=== PATIENT | female | born 1955 | race Caucasian/White ===

== ENCOUNTER 2022-12-07 15:30 | Emergency (ER) | payer MEDICARE, MEDICAID, SELFPAY ==
--- NOTE | ~2022-12-07 | CT_ITS ---
EXAMINATION: CT abdomen pelvis w con DATE: 12/07/2022 18:16 INDICATION: abd pain, flank pain, UTI TECHNIQUE: Computed tomography (CT) of the abdomen and pelvis was performed with 100 mL Omnipaque-350 intravenous contrast. Automated exposure control and iterative reconstruction technique were employe d. The dose-length product was 666.07 mGy-cm. COMPARISON: None. FINDINGS: Lower thorax: Scattered air cysts in the lungs. 10 mm island of groundglass opacity in the right lowe r lobe. Irregular approximately 14 mm focus of groundglass opacity in the left lower lobe. Coronary a nd aortic calcifications. Liver: Normal. Biliary/Gallbladder: Gallbladder is normal. No bile duct dilation. Pancreas: No mass or duct dilation. Spleen: Normal. Adrenals:No mass. Kidneys: No mass, stone, or hydronephrosis. GI tract: Small hiatal hernia. Mild distal esophageal and gastric wall edema. No small or large bowel dilation. Normal appendix. Diverticulosis. Mild wall thickening and loss of the pericolonic fat plan e in a short segment of the sigmoid colon in the deep left pelvis, and a region of extensive divertic ulosis. Mesentery/Peritoneum: No ascites, mass, or free air. Retroperitoneum: No mass. Atherosclerotic abdominal aortic and/or arterial calcifications. Pelvis: Partially filled urinary bladder. Surgically absent uterus.. Soft Tissues: Right lower quadrant subcutaneous injection site. Uncomplicated fat-containing small um bilical and bilateral renal hernias. Bones: No acute osseous finding. IMPRESSION: 1. Multiple subsolid pulmonary nodules, likely infectious or inflammatory, recommend CT at 3-6 months . 2. Mild esophagitis/gastritis. 3. Mild wall thickening and loss of pericolonic fat and a short segment of the sigmoid colon in the d eep left pelvis, in an area of extensive diverticulosis, which may represent mild/early diverticuliti s in the appropriate clinical context. Reviewed, dictated and finalized at location K. IMPRESSION: 1. Multiple subsolid pulmonary nodules, likely infectious or inflammatory, miriam mmend CT at 3-6 months. 2. Mild esophagitis/gastritis. 3. Mild wall thickening and loss of pericolonic fat and a short segment of the sigmoid colon in the deep left pelvis, in an area of extensive diverticulosis, which may represent mild/early diverticulitis in the appropriate clinical olu xt.
[2022-12-07 15:49] VITALS: BP 130/91; PULSE 95; RESP 14; TEMP 36.4; O2SAT 99
[2022-12-07 16:13] LABS: Appearance Urine Cloudy (Clear); Bacteria Urine 4+ /hpf; Bilirubin Urine Negative (Negative); Blood Urine Negative (Negative); Color Urine Yellow (Yellow); Glucose Urine UA Negative (Negative); Ketones Urine Negative (Negative); Leukocyte Esterase Ur 1+ LEU/UL (Negative); Nitrate Urine Positive (Negative); Protein Urine Negative (Negative); RBC Urine 0-2 /hpf (0-2); Specific Grav Ur 1.017 (1.001-1.035); Squamous Epithelial Cell Urine Moderate /hpf (Few); Urobilinogen Urine 0.2 mg/dL (<2.0); pH Urine 5.5 (5.0-9.0)
[2022-12-07 16:18] LABS: Add Urine Microscopic? YES
[2022-12-07 16:27] LABS: Basophils Absolute Auto 0.1 K/mm3 (0.0-0.1); Basophils Percent Auto 0.5 % (0.2-1.2); Eosinophils Absolute Auto 0.3 K/mm3 (0-0.3); Eosinophils Percent Auto 2.3 % (0-4.4); Hematocrit 48.9 % (37.0-47.0); Hemoglobin 16.6 g/dL (12.0-15.0); Immature Granulocyte Absolute 0.05 K/mm3 (0.00-0.031); Immature Granulocyte Percent A 0.4 % (0-0.5); Lymphocytes Absolute Auto 3.94 K/mm3 (0.9-3.2); Lymphocytes Percent Auto 30.1 % (18.3-44.2); Mean Corpuscular HGB Conc 33.9 g/dl (32-36); Mean Corpuscular Hemoglobin 31.3 pg (26-34); Mean Corpuscular Volume 92.1 fl (80-100); Monocytes Absolute Auto 0.8 K/mm3 (0.1-0.6); Neutrophils Percent Auto 60.7 % (45.5-73.1); Platelet Count Result 324 k/mm3 (150-375); Red Blood Count 5.31 M/mm3 (4.2-5.4); Red Cell Distribution Width 13.1 % (11.5-14.5); White Blood Count 13.1 K/mm3 (4.5-10.0)
[2022-12-07 16:37] LABS: Anion Gap 11 mmol/L (8-16); Blood Urea Nitrogen 20 mg/dL (7-17); Calcium 10.3 mg/dL (8.4-10.2); Carbon Dioxide 22 mmol/L (22-30); Chloride 100 mmol/L (98-107); Estimated CRCL calculation 45 ml/min; Estimated Glomerular Filt Rate 45; Glucose 110 mg/dL (65-110); Potassium 4.8 mmol/L (3.4-5.0); Sodium 133 mmol/L (137-145)
--- NOTE | 2022-12-07 17:21 | ED.FEMALEGU ---
HPI - Female Genitourinary General Chief complaint: Urogenital-Female Stated complaint: UTI Time Seen by Provider: 12/07/22 16:00 Source: patient Mode of arrival: ambulatory Limitations: no limitations History of Present Illness HPI Narrative: This is a 67 year old female that presents to the ER for feeling generally unwell for about a week. Reports urinary frequency, fatigue, left sided flank pain and foul smelling urine. Reports some mild abdominal cramping. Denies fever, vomiting or hematuria. Related Data Allergies Allergy/AdvReac Type Severity Reaction Status Date / Time No Known Allergies Allergy Verified 12/07/22 19:06 Review of Systems Review of Systems: CONSTITUTIONAL: Denies fever GASTROINTESTINAL: Reports abdominal pain. Denies nausea, vomiting or diarrhea GENITOURINARY: Reports hematuria. Denies dysuria All systems reviewed & are unremarkable except as noted in HPI and below PMFSH Past Medical History Medical History (Updated 12/07/22 @ 19:05 by Belkis Vaughn PA-C) History of diabetes mellitus History of hyperlipidemia History of hypertension Family History Family History (Updated 04/23/16 @ 23:19 by DOCTOR UNKNOWN) Sibling Family history of diabetes mellitus in first degree relative Mother Family history of heart disease in male family member before age 55 Other Diabetes mellitus Social History Social History Smoking status: Heavy tobacco smoker Alcohol intake: current Exam Narrative: GENERAL: Well-appearing, well-nourished, and in no acute distress. HEAD: Normocephalic, atraumatic. EYES: EOMI. CHEST: Clear to auscultation. No respiratory distress. No wheezes rales or rhonchi HEART: Regular rate and rhythm. No murmur heard. Normal peripheral pulses. ABDOMEN: Soft, nontender, nondistended, normal active bowel sounds. Left sided CVA tenderness EXTREMITIES: Normal range of motion. No edema. SKIN: Warm, dry, no rash. NEURO: No focal deficits. Alert and oriented x3. PSYCH: Normal mood and affect Course Course Emergency Course: Patient updated on work-up and agrees with plan of care Vital Signs Vital signs: Vital Signs Temperature 97.5 F L 12/07/22 15:49 Pulse Rate 95 12/07/22 15:49 Respiratory Rate 14 12/07/22 15:49 Blood Pressure 130/91 H 12/07/22 15:49 Pulse Oximetry 99 12/07/22 15:49 Oxygen Delivery Room Air 12/07/22 15:49 Temperature 97.5 F L 12/07/22 15:49 Pulse Rate 95 12/07/22 15:49 Respiratory Rate 14 12/07/22 15:49 Blood Pressure 130/91 H 12/07/22 15:49 Pulse Oximetry 99 12/07/22 15:49 Oxygen Delivery Room Air 12/07/22 15:49 MDM - Female Genitourinary MDM Narrative Medical decision making narrative: Patient presents to the emergency department for feeling generally unwell, urinary frequency, and flank pain. She is afebrile and nontoxic-appearing. Her vitals are stable. CBC with mild leukocytosis to 13.1. Also shows some hemoconcentration. Metabolic panel with creatinine of 1.2 and GFR 45. No previous labs for comparison. Patient was hydrated with a liter of IV fluids in the ED. UA is consistent with infection. CT scan of the abdomen and pelvis was obtained to rule out any kidney stones complicating. Shows pulmonary nodules, esophagitis, and possible mild/early diverticulitis. Patient's symptoms are more consistent with a UTI. Will be started on antibiotics to treat for this. Patient was updated on work-up and agrees with plan of care. She is to follow-up with her primary care provider. She was given warnings to return to the ER Differential Diagnosis Differential diagnosis: Likely urinary tract infection and other (kidney stone) Lab Data Attestation: I reviewed the patient's lab results. 12/07/22 16:19 12/07/22 16:19 Labs: Lab Results 12/07/22 12/07/22 12/07/22 Range/Units 16:00 16:19 16:19 WBC 13.1 H (4.5-10.0) K/mm3 RBC 5.31 (4.2-5.4) M/mm3 Hgb 16.6 H
[2022-12-07] MEDS: SODIUM CHLORIDE 0.9% IV 1,000 ML 999 ML IV CONT (18:44)
== END 2022-12-07 19:41 | disposition home or self-care (01) ==
PROVIDERS: Emergency Medicine; Emergency Provider Physician Assistant; PCP Internal Medicine
DX: N39.0 Urinary tract infection, site not specified (principal); R91.8 Other nonspecific abnormal finding of lung field; E11.9 Type 2 diabetes mellitus without complications; E78.5 Hyperlipidemia, unspecified; I10 Essential (primary) hypertension; F17.200 Nicotine dependence, unspecified, uncomplicated; K20.90 Esophagitis, unspecified without bleeding; K29.70 Gastritis, unspecified, without bleeding; R93.3 Abnormal findings on diagnostic imaging of other parts of digestive tract
CPT/HCPCS: 36415; 74177; 80048; 81001; 85025; 87077; 87086; 87186; 96361; 96365; 99284; J0696; J7030; Q9967

== ENCOUNTER 2023-10-25 09:10 | Outpatient (CLI) | payer OTHER, SELFPAY ==
--- NOTE | ~2023-10-25 | PE_ITS ---
EXAMINATION: PET skull to mid thigh DATE: 10/25/2023 11:47 INDICATION: Lung nodule. TECHNIQUE: Blood glucose level was 123 mg/dL. 9.254 mCi of 18-fluorodeoxyglucose (18-FDG) was adminis tered i.v. Low dose computed tomography (CT) images were acquired from the base of the brain to the p roximal thighs for attenuation correction and anatomic localization. Automated exposure control was e mployed. Dose-length product (DLP) was 714 mGy-cm. Positron emission tomography (PET) images were acq uired in the same distribution. COMPARISON: CT abdomen and pelvis 12/07/2022 FINDINGS: Head/neck: There are no pathologically enlarged lymph nodes. Chest: There is mild emphysema. There are a few scattered groundglass opacities in the lungs without increased activity. There is mild atelectasis in left upper lobe. There are a few scattered nodules i n the lungs measuring up to 7 mm in left upper lobe without increased activity. No pleural effusion. The heart size is normal. There are coronary artery calcifications. No pericardial effusion. Abdomen/pelvis/proximal thighs: The liver, gallbladder, pancreas, adrenal glands, and kidneys are nor mal. There is no urolithiasis. There is diverticulosis of the colon without evidence of diverticuliti s. There are no dilated loops of bowel. The appendix is normal. There are no pathologically enlarged lymph nodes. There is no free intraperitoneal fluid. There is calcified atherosclerosis of the aorta and many of the other arteries. There is no osseous malignancy. IMPRESSION: 1. Pulmonary nodules measuring up to 7 mm without increased activity, probably benign. Noncontrast lo w-dose chest CT is recommended in 6 months. Reviewed, dictated and finalized at location A. [employer] IMPRESSION: 1. Pulmonary nodules measuring up to 7 mm without increased activity, probably benign. Noncontrast low-dose chest CT is recommended in 6 months.
[2023-10-25 09:46] LABS: Glucose Point of Care 123 mg/dl (65-105)
== END 2023-10-25 09:11 | disposition home or self-care (01) ==
LOC: ANHIMG 09:12
PROVIDERS: PCP Internal Medicine; Visit Provider Internal Medicine
DX: R91.1 Solitary pulmonary nodule (principal); R91.8 Other nonspecific abnormal finding of lung field
CPT/HCPCS: 78815; A9552

== ENCOUNTER 2024-12-04 10:23 | Outpatient (CLI) | payer OTHER, SELFPAY ==
--- NOTE | ~2024-12-04 | PE_ITS ---
EXAMINATION: PET skull to mid thigh DATE: 12/04/2024 12:50 INDICATION: Solitary pulmonary nodule. TECHNIQUE: Blood glucose level was 97 mg/dL. 10.341 mCi of 18-fluorodeoxyglucose (18-FDG) was adminis tered i.v. Low dose computed tomography (CT) images were acquired from the base of the brain to the p roximal thighs for attenuation correction and anatomic localization. Automated exposure control was e mployed. Dose-length product (DLP) was 703 mGy-cm. Positron emission tomography (PET) images were acq uired in the same distribution. COMPARISON: PET/CT 10/25/2023 FINDINGS: Head/neck: There are no pathologically enlarged lymph nodes. Chest: There is mild emphysema. There are a few scattered groundglass opacities in the lungs without increased activity. There is a new 6 mm nodule in right upper lobe with maximum SUV of 1.7. There is a 7 mm nodule in left upper lobe without increased activity without change. There is 11 mm nodule in left lower lobe with increased in size from 7 mm with maximum SUV of 5.6. No pleural effusion. The he art size is normal. There are coronary artery calcifications. No pericardial effusion. There is a sma ll sliding hiatal hernia. Abdomen/pelvis/proximal thighs: The liver, gallbladder, spleen, pancreas, adrenal glands, and kidneys are normal. There is diverticulosis of the colon without evidence of diverticulitis. There are no di lated loops of bowel. The appendix is normal. There are no pathologically enlarged lymph nodes. There is no free intraperitoneal fluid. There is no osseous malignancy. IMPRESSION: 1. Worsened 11 mm left lower lobe pulmonary nodule with increased activity suspicious for primary bro nchogenic carcinoma. CT-guided biopsy is recommended. Reviewed, dictated and finalized at location B. IMPRESSION: 1. Worsened 11 mm left lower lobe pulmonary nodule with increased activity susp icious for primary bronchogenic carcinoma. CT-guided biopsy is recommended.
[2024-12-04 10:52] LABS: Glucose Point of Care 97 mg/dl (65-105)
--- OUTSIDE RECORDS SUMMARY | 2024-12-04 11:47 | XMS_ITS | CONTINUITY OF CARE DOCUMENT ---
Author Name josue salas Address Unknown Organization [facility] Address [address] [place] [address] Phone [phone] Care Team Providers Care Remedial Reading Teacher Name Role Phone josue salas Unavailable Unavailable INSURANCE PROVIDERS Payer name Policy type / Coverage type [place] red green party ID [place] [facility] Commercial insurance [employer] [id number]
--- OUTSIDE RECORDS SUMMARY | 2024-12-04 11:47 | XMS_ITS | Referral Summary ---
Author Organization [facility] Address [address] [place] [address] Care Team Providers Care Therapy Teacher Name Role Phone Dorian Tello MD Primary Care Provider Allergies Active Allergy Reactions Criticality Noted Date Comments Unclassified Drug Nausea & Vomiting Low 08/06/2022 Unknown antibiotic with UTI, thinks its Cipro or Keflex Medications blood sugar diagnostic (ONETOUCH ULTRA BLUE TEST STRIP [facility]) OneTouch Ultra Blue Test Strip TEST BLOOD SUGAR ONCE DAILY DX E11.9 Active blood glucose diagnostic (True Metrix Glucose Test Strip) strip True Metrix Glucose Test Strip Active blood glucose control, normal solution truetest blood glucose meter use to test blood sugar daily E11.9 Active lancets 33 gauge misc TRUEplus Lancets 33 gauge TEST USING ONE LANCET EVERY DAY Active pantoprazole DR (PROTONIX) 40 mg EC tabletIndicatio ns:Treatment of Non-Bleeding Gastric Disorder Take 40 mg by mouth nightly Active losartan (COZAAR) 25 mg tabletIndicatio ns:hypertension Take 25 mg by mouth nightly Active atorvastatin (LIPITOR) 20 mg tabletIndicatio ns:hyperlipidem ia Take 20 mg by mouth nightly Active dulaglutide (Trulicity) 0.75 mg/0.5 mL pen injectorIndicat ions:type 2 diabetes mellitus,Tuesday Inject 0.75 mg under the skin once a week Active eszopiclone (LUNESTA) 3 mg tabletIndicatio ns:Insomnia Take 3 mg by mouth nightly Active naproxen sodium 220 mg capsuleIndicati ons:Pain Take 220 mg by mouth 2 (two) times a day Active metFORMIN (GLUCOPHAGE) 500 mg tabletIndicatio ns:type 2 diabetes mellitus Take 500 mg by mouth nightly Active oxyCODONE (ROXICODONE) 5 mg immediate release tabletIndicatio ns:Pain Take 1 tablet (5 mg total) by mouth every 4 (four) hours as needed for pain 40 tablet 08/24/2022 Active docusate sodium (COLACE) 100 mg capsuleIndicati ons:constipatio n Take 1 capsule (100 mg total) by mouth 2 (two) times a day For constipation. Hold if having loose stools or diarrhea. 20 capsule 08/24/2022 Active Active Problems Problem Noted Date Diagnosed Date Tear of right rotator cuff 07/19/2022 Overview (07/19/2022): Added automatically from request for surgery [id number] Social History Tobacco Use Types Packs/Day Years Used Date Smoking Tobacco: Former Cigarettes 1 20 1 - 07/05/2022 Tobacco Cessation:Counseling Given: Not Answered AUDIT-C Answer Date Recorded Frequency of Alcohol Consumption Not on file 08/06/2022 Q2: How many drinks containi ng alcohol do you have on a typical day when you are drinking? Patient does not drink Frequency of Binge Drinking Not on file 07/27 Comments No Sex and Gender Information Value Date Recorded Sex Assigned at Not on file Legal Sex Female 1:06 AM NEWS CAMERAMAN Gender Identity Not on file Sexual Orientation Not on file Last Filed Vital Signs Vital Sign Reading Time Taken Comments Blood Pressure 143/70 08/24/2022 10:00 AM NEWS CAMERAMAN Pulse 81 08/24/2022 10:05 AM NEWS CAMERAMAN Temperature 36.2 C (97.2 F) 08/24/2022 10:05 AM NEWS CAMERAMAN Respiratory Rate 22 08/24/2022 10:0 5 AM NEWS CAMERAMAN Oxygen Saturation 96% 08/24/2022 10: 05 AM NEWS CAMERAMAN Inhaled Oxygen Concentration - - Weight 85.1 kg (187 lb 11.2 oz) 08/24/2022 5:54 AM NEWS CAMERAMAN Height 170.2 cm (5' 7 ) 08/24/2022 5:54 AM NEWS CAMERAMAN Body Mass Index 29.4 08/24/2022 5:54 AM NEWS CAMERAMAN Plan of Treatment Not on file Medical Devices Implanted Type Area Electrode Cleaner Device Identifier Shelf Expiration Date Model / Serial / Lot Titanium Left: Breast Description:Left breast steffen nium implant [employer] Set Implant Ar[employer]rex Fibertak Biceps Sterile Latex Free [id number] - [id number] Implanted:Qty: 1 on 08/24/2022 by Sony Banks MD at [facility] Right: Shoulder [employer] 03/25/2027 [id number]-[id number] / / [id number] [employer] Swivelock C 4.75mm 19.1mm Closed Eyelet Vent Glade Suture [id number] - [id number] Implanted:Qty: 1 on 08/24/2022 by Sony Banks MD at [facility] [place] Right: Shoulder [employer] 06/25/2026 [id number] / / [id number] Insurance [facility] MEDICARE IDPA Care Teams Therapy Teacher Relationship Specialty Start Date End Date Dorian Tello MD [address] [place] [address] PCP - General Internal Medicine 07/13/22
--- OUTSIDE RECORDS SUMMARY | 2024-12-04 11:47 | XMS_ITS | Clinical Summary ---
Author Organization [facility] Address [address] [place] [address] Care Team Providers Care Safety Supervisor Name Role Phone Unavailable Primary Care Provider Unavailabl e Source Comments [facility],non-owned Affiliates and Associated Physician Practices is amultiple site organization consisting of ambulatory clinics and hospital sitesin [place], [place], [place] and [place]. This disclosure is being madepursuant to the Care Everywhere program and may not contain all information available regarding this patient. Last updated 18.[facility] Allergies No known active allergies Medications * Be aware that medications may not be up to date on this document. Alwaysverify current medications with the patient. Medication Sig Dispensed Refills Start Date End Date Status atorvastatin (LIPITOR) 20 MG tablet atorvastatin 20 mg tablet TAKE ONE TABLET BY MOUTH EVERY DAY Active eszopiclone (LUNESTA) 3 MG tablet eszopiclone 3 mg tablet TAKE ONE TABLET BY MOUTH NIGHTLY AT BEDTIME DX G47.00 Active HYDROcodone-acetami nophen (NORCO) 7.5-325 MG tablet hydrocodone 7.5 mg-acetaminophen 325 mg tablet one tablet three times a day for chronic pain DX: G89.4 Active losartan (COZAAR) 25 MG tablet On hold during hep c treatment Active metFORMIN ER 24hr (GLUCOPHAGE XR) 500 MG tablet 2 times daily 10/20/2020 Active pantoprazole EC (PROTONIX) 40 MG tablet pantoprazole 40 mg tablet,delayed release TAKE ONE TABLET BY MOUTH EVERY DAY Active Active Problems Problem Noted Date Diagnosed Date Enthesopathy of hip region 10/27/2020 Gastroesophageal reflux disease 10/27/2020 Iron deficiency anemia 10/27/2020 Pure hypercholesterolemia 10/27/2020 Restless legs 10/27/2020 Right lower quadrant pain 10/27/2020 Chronic hepatitis C without hepatic coma 021 Overview (12/21/2020): Hepatitis B core antibody non reactive. Genotype 1a 12/15/20 Fibroscan CAP 355, LSM 11.5 kPa Essential hypertension 02/12/2019 Chronic pain disorder 08/14/2018 Type 2 diabetes mellitus without complication Vitamin D deficiency 01/03/2017 Family History Medical History Relation Name Comments Diabetes - Type 2 Brother High Cholesterol Brother Hypertension Brother CVA Father Cancer - Colon Father High Cholesterol Father Hypertension Father Diabetes - Type 2 Mother High Cholesterol Mother Hypertension Mother Relation Name Status Comments Brother Father Mother Social History Tobacco Use Types Packs/Day Years Used Date Smoking Tobacco: Every Day Cigarettes Smokeless Tobacco: Never Alcohol Use Standard Drinks/Week Comments Not Currently 0 (1 standard drink = 0.6 oz pur e alcohol) Very rare- nothing in years Sex and Gender Information Value Date Recorded Sex Assigned at Not on file Gender Identity Not on file Sexual Orientation Not on file Last Filed Vital Signs Vital Sign Reading Time Taken Comments Blood Pressure 134/77 06/09/2021 1:27 PM CDT Pulse 83 06/09/2021 1:27 PM CDT Temperature 36.6 C (97.9 F) 06/09/2021 1:27 PM CDT Respiratory Rate 20 06/09/2021 1:27 PM CDT Oxygen Saturation 100% 06/09/2021 1:27 PM CDT Inhaled Oxygen Concentration - - Weight 88.4 kg (194 lb 12.8 oz) 06/09/2021 1:27 PM CDT Height 170.2 cm (5' 7 ) 12/15/2020 12:4 4 PM CDT Body Mass Index 30.51 12/15/2020 12:44 PM CDT Plan of Treatment Health Maintenance Due Date Last Done Comments BONE DENSITY TESTING 1955 COLOGUARD (AGES 45-75) - COLON CA SCREENING 1955 COLON MONITORING 1955 COLONOSCOPY - COLON CA SCREENING 1955 CT COLONOGRAPHY - COLON CA SCREENING 1955 Colorectal Cancer Screening 1955 FIT - COLON CA SCREENING 1955 FLEX SIG - COLON CA SCREENING 1955 MAMMOGRAM 1955 MEDICARE AWV 12 MONTHS 1955 DTAP/TDAP/TD VACCINES (1 - Tdap) 1974 PNEUMOCOCCAL VACCINE 50+ (1 of 2 - PCV) 1974 ZOSTER VACCINE (1 of 2) 2005 HEPATITIS B VACCINE (1 of 3 - Risk 3-dose series) 2015 Respiratory Syncytial Virus (RSV) Vaccine Pt: or over 60 yrs (1 - Risk 60-74 years 1-dose series) 2015 DIABETES RETINOPATHY SCREENING 10/27/2020 DIABETES-FOOT EXAM WITH MONOFILAMENT 10/27/2020 DIABETES-HGB A1C 10/27/2020 DIABETES-SERUM CREATININE 01/14/2022 01/14/2021, 09/2020 COVID-19 VACCINE ( - season) 2024 INFLUENZA VACCINE (#1) 2024 9, 06/30/2015, 07/09/2013 DEPRESSION SCREENING 09/26/2024 DIABETES - URINE PROTEIN SCREENING 09/26/2024 HEPATITIS C SCREENING Completed 06/09/2021 , 02/20/2021, 01/26/2021, Additional history exists HIB VACCINE Aged Out No longer eligi ble based on patient's age to complete this topic HPV VACCINE Aged Out No longer eligi ble based on patient's age to complete this topic MENINGOCOCCAL (Group B) VACCINE Aged Out No longer eligible based on patient's age to complete this topic MENINGOCOCCAL VACCINE Aged Out No robina morris eligible based on patient's age to complete this topic Goals Goal Patient Goal Type Associated Problems Recent Progress Patient-Stated? Author Medication Management General On track( 021 1:41 PM CDT) No Guadalupe Montes, RN Note: Expected end date: ongoing Interventions: Take all medications as prescribed Procedures Procedure Name Priority Date/Time Associated Diagnosis Comments COMP MET PANEL (EXTERNAL RESULT ENTRY) Routine 01/14/2021 HEPATITIS C RNA QUANTITATIVE Routine 10/27/2020 1:40 PM PATIENT REGISTRATION CLERK Chronic hepatitis C without hepatic coma (HCC) from Last 3 Months or Most Recently Relevant to Health Maintenance Results * (ABNORMAL) COMP MET PANEL (EXTERNAL RESULT ENTRY) (01/14/2021) Pathologist [facility] Glucose (EXTERNAL) 138(A) 70 - 99 mg/dL Sodium (EXTERNAL RESULT) 140 137 - 145 mmol/L Potassium (EXTERNAL RESULT) 4.2 3.5 - 5.1 mmol/L Chloride (EXTERNAL RESULT) 103 98 - 107 mmol/L CO2 (EXTERNAL) 26 22 - 30 mmol/L Calcium (EXTERNAL RESULT) 10.5(A) 8.4 - 10.2 mg/dL Anion Gap (EXTERNAL RESULT) 15.2 14 - 22 mmol/L BUN (EXTERNAL RESULT) 13 8 - 19 mg/dL Creatinine (EXTERNAL RESULT) 0.91 0.66 - 1.25 mg/dl Alkaline Phosphatase (EXTERNAL RESULT) 62 38 - 126 U/L ALT (EXTERNAL RESULT) 43(A) 0 - 35 U/L AST (EXTERNAL RESULT) 30 15 - 37 U/L Protein Total (EXTERNAL RESULT) 7.6 6.3 - 8.2 gm/dL Albumin (EXTERNAL RESULT) 4.7(A) 3 - 4.4 gm/dL Bilirubin Total (EXTERNAL RESULT) 0.60 0.20 - 1.30 mg/dL eGFR MDRD (EXTERNAL RESULT) eGFR (EXTERNAL) Blood BLOOD SPECIMEN / Unknown 01/14/2021 Historical Provider LAB - CHEMISTRY O RDERABLES * (ABNORMAL) HEPATITIS C RNA QUANTITATIVE (10/27/2020 1:40 PM PATIENT REGISTRATION CLERK) [facility] Hepatitis C Virus Quant by PCR, Blood 3,531,631 (H) Not detected IU/mL 10/30/2020 11:09 AM PATIENT REGISTRATION CLERK [facility] Hepatitis C RNA PCR, Interp Detected( A) Not Detected 10/30/2020 11:09 AM [facility] Blood BLOOD SPECIMEN / Unknown Lab Venipuncture / Unknown 10/27/2020 1:40 PM PATIENT REGISTRATION CLERK 10/27/2020 3:32 PM PATIENT REGISTRATION CLERK Narrative [facility] - 10/30/2020 11:09 AM PATIENT REGISTRATION CLERK The Hepatitis C viral (HCV) RNA analysis utilized a serum sample, real-time reverse turfgrass management professor PCR, and is reported as Not Detected, Detected (<12 IU/mL), Quantity (IU/mL) or >100,000,000 IU/mL. The limit of quantitation of the assay is 12 IU/mL (100% of samples with this HCV RNA level were detected). The linear range is from 12 IU/mL to 100,000,000 IU/mL. Values less than 12 IU/mL are reported as Detected (<12 IU/mL). Values greater than 100,000,000 IU/mL are reported as > 100,000,000 IU/mL. The detection/quantitation of HCV RNA in serum is based on the isolation of HCV RNA with reverse turfgrass management professor of genomic HCV RNA followed by real-time PCR in the presence of an unrelated RNA internal control. The internal control ensures that RNA is isolated, and that no general significant inhibitors of the RT-PCR process are present. The analysis was performed using a U.S. FDA approved test methodology ([employer] Real Time HCV). Yoli Olvera TOBACCO SCRAP SIFTER-VISUAL TRAINING AIDE LAB - CHEMIS TRY ORDERABLES [facility] [address] [place] [address], [facility] [phone] from Last 3 Months or Most Recently Relevant to Health Maintenance
--- OUTSIDE RECORDS SUMMARY | 2024-12-04 11:47 | XMS_ITS | Patient Health Summary ---
Author Organization [facility] Address [address] [place] [address] Care Team Providers Care Cloth Hauler Name Role Phone Unavailable Primary Care Provider Unavailabl e Note from [facility],non-owned Affiliates and Associated Physician Practices is amultiple site organization consisting of ambulatory clinics and hospital sitesin [place], [place], [place] and [place]. This disclosure is being madepursuant to the Care Everywhere program and may not contain all information available regarding this patient. Last updated 18.[facility] Allergies No known active allergies Medications * Be aware that medications may not be up to date on this document. Alwaysverify current medications with the patient. * atorvastatin (LIPITOR) 20 MG tablet atorvastatin 20 mg tablet TAKE ONE TABLET BY MOUTH EVERY DAY * eszopiclone (LUNESTA) 3 MG tablet eszopiclone 3 mg tablet TAKE ONE TABLET BY MOUTH NIGHTLY AT BEDTIME DX G47.00 * HYDROcodone-acetaminophen (NORCO) 7.5-325 MG tablet hydrocodone 7.5 mg-acetaminophen 325 mg tablet one tablet three times a day for chronic pain DX: G89.4 * losartan (COZAAR) 25 MG tablet On hold during hep c treatment * metFORMIN ER 24hr (GLUCOPHAGE XR) 500 MG tablet(Started 10/20/2020) 2 times daily * pantoprazole EC (PROTONIX) 40 MG tablet pantoprazole 40 mg tablet,delayed release TAKE ONE TABLET BY MOUTH EVERY DAY Active Problems Problem Noted Date Diagnosed Date Enthesopathy of hip region 10/27/2020 Gastroesophageal reflux disease 10/27/2020 Iron deficiency anemia 10/27/2020 Pure hypercholesterolemia 10/27/2020 Restless legs 10/27/2020 Right lower quadrant pain 10/27/2020 Chronic hepatitis C without hepatic coma 021 Essential hypertension 02/12/2019 Chronic pain disorder 08/14/2018 Type 2 diabetes mellitus without complication Vitamin D deficiency 01/03/2017 Social History Tobacco Use Types Packs/Day Years [...] Mass Index 30.51 12/15/2020 12:44 PM CDT Procedures * US ABDOMEN LIMITED(Performed 01/26/2021) Performed for Chronic hepatitis C without hepatic coma (HCC) * HCV RNA PCR QNT (EXTERNAL RESULT ENTRY)(Performed 01/14/2021) * COMP MET PANEL (EXTERNAL RESULT ENTRY)(Performed 01/14/2021) * CBC W DIFF (EXTERNAL RESULT ENTRY)(Performed 01/14/2021) * HI LIVER ELASTOGRAPHY(Performed 12/15/2020) Performed for Chronic hepatitis C without hepatic coma (HCC) * HEPATITIS B SURFACE ANTIBODY(Performed 10/27/2020) Performed for Chronic hepatitis C without hepatic coma (HCC) * HEPATITIS C RNA QUANTITATIVE(Performed 10/27/2020) Performed for Chronic hepatitis C without hepatic coma (HCC) * PT-INR [facility](Performed 10/27/2020) Performed for Chronic hepatitis C without hepatic coma (HCC) * COMPREHENSIVE METABOLIC PANEL(Performed 10/27/2020) Performed for Chronic hepatitis C without hepatic coma (HCC) * CBC W AUTO DIFFERENTIAL(Performed 10/27/2020) Performed for Chronic hepatitis C without hepatic coma (HCC) * DERMATOPATHOLOGY(Performed 10/10/2014) * DERMATOPATHOLOGY(Performed 09/05/2014) Results * US ABDOMEN LIMITED (01/26/2021 1:29 PM CDT) Anatomical Region Laterality Modality Abdomen Ultrasound 01/26/2021 1:25 PM CDT Impressions 01/26/2021 1:27 PM CDT IMPRESSION: 1.Increased echogenicity of the liver with a coarse echotexture, representing steatosis and chronic hepatocellular disease. No focal liver lesions. 2.Gallbladder sludge with adenomyomatosis. This report was electronically signed by AICHA TELLO on 01/26/2021 1:27 PM . Narrative 01/26/2021 1:27 PM CDT EXAM: Limited abdominal ultrasound HISTORY: B18.2: Chronic hepatitis C without hepatic coma COMPARISON: No comparison images are available in the PACS system at the time of this dictation. FINDINGS: There is increased echogenicity of the liver appears coarse in echotexture. No focal liver masses. No discrete hepatic mass or intrahepatic biliary dilatation is seen. Color Doppler evaluation demonstrates patency of the hepatic and portal veins. Gallbladder sludge is present. Numerous foci of adenomyomatosis. The gallbladder wall measures 3 mm. The common bile duct measures 3.2 mm. The right kidney measures 11.3 cm. Limited views of the right kidney show no hydronephrosis, nephrolithiasis, or solid renal mass. The visible pancreas is normal in echogenicity. The spleen measures 10.4 cm. No ascites is present. Procedure Note Aicha Tello MD - 01/26/2021 EXAM: Limited abdominal ultrasound HISTORY: B18.2: Chronic hepatitis C without hepatic coma COMPARISON: No comparison images are available in the PACS system at the time of this dictation. FINDINGS: There is increased echogenicity of the liver appears coarse in echotexture. No focal liver masses. No discrete hepatic mass or intrahepatic biliary dilatation is seen.Color Doppler evaluation demonstrates patency of the hepatic and portal veins. Gallbladder sludge is present. Numerous foci of adenomyomatosis. The gallbladder wall measures 3 mm. The common bile duct measures 3.2 mm. The right kidney measures 11.3 cm. Limited views of the right kidneyshow no hydronephrosis, nephrolithiasis, or solid renal mass. The visible pancreas is normal in echogenicity. The spleen measures 10.4 cm. No ascites is present. IMPRESSION: 1.Increased echogenicity of the liver with a coarse echotexture, representing steatosis and chronic hepatocellular disease. No focalliver lesions. 2.Gallbladder sludge with adenomyomatosis. This report was electronically signed by AICHA TELLO on 01/26/2021 1:27 PM . Yoli Olvera RISK PREVENTION ENGINEER-RESEARCH LABORATORY SPECIALIST US ORDERABLE S * (ABNORMAL) CBC W DIFF (EXTERNAL RESULT ENTRY) (01/14/2021) [facility] WBC (EXTERNAL RESULT) 7.2 4.2 - 10.8 10^3/ul Hemoglobin (EXTERNAL RESULT) 15.2 12 - 15.6 g/dl Hematocrit (EXTERNAL RESULT) 47.9(A) 35.7 - 45.7 % Platelets (EXTERNAL RESULT) 293 150 - 400 10^3/ul Neutrophil Absolute (EXTERNAL RESULT) 3.83 1.5 - 8 10^3/ul Blood BLOOD SPECIMEN / Unknown 01/14/2021 Historical Provider LAB - HEMATOLOGY ORDERABLES * (ABNORMAL) HCV RNA PCR QNT (EXTERNAL RESULT ENTRY) (01/14/2021) [facility] HCV RNA Quantitative RT-PCR (EXTERNAL RESULT) Detected <15(A) Blood BLOOD SPECIMEN / Unknown 01/14/2021 Historical Provider LAB - CHEMISTRY O RDERABLES * (ABNORMAL) COMP MET PANEL (EXTERNAL RESULT ENTRY) (01/14/2021) [facility] Glucose (EXTERNAL) 138(A) 70 - 99 mg/dL [...] Provider LAB - CHEMISTRY O RDERABLES * PROC FIBROSCAN (12/15/2020 12:50 PM CDT) Narrative João Cornejo MD - 12/15/2020 12:50 PM CDT João Cornejo MD 12/21/2020 9:33 PM Diagnosis: Hepatitis C RN verified patient not , no implanted devices and NPO for prior 3 hours. Procedure explained and consent signed. Date of Exam: 12/15/2020 Liver Stiffness: (LSM, kPa) median: 11.5 IQR (interquartile range): 2.6 IQR/Median% (ideally < 30%): 23 CAP (controlled attenuation parameter): 355 Technical Difficulty: None Ordering Provider: Yoli Olvera JAVA PERFORMANCE ENGINEER Phone Fax Fibroscan interpretation: I have personally reviewed the Fibroscan report and associated tracings. The calculated Liver Stiffness Measurement (LSM, kPa) indicates that: The probability of advanced liver fibrosis is: moderate. The loss of ultrasound signal, (controlled attenuation parameter, CAP [dB/m]), indicates that the probability of hepatic steatosis is: high. João Cornejo MD The following criteria are used to indicate the probability of advanced (stage 3-4) fibrosis: < 7.0 kPa: low 7.0-8.9 kPa: low to moderate 9.0-14.9 kPa: moderate 15-20 kPa: high > 20 kPa: very high Liver stiffness > 20 kPa is also associated with a high probability of complications of portal hypertension including varices and ascites. Liver stiffness > 50 kPa is associated with a high risk of variceal bleeding. These interpretations are based on the following published data: Josee PJ, Umer M, Zee M, et al. Accuracy of FibroScan controlled attenuation parameter and liver stiffness measurement in assessing steatosis and fibrosis in patients with nonalcoholic fatty liver disease. Gastroenterology 2019;156:6018-4126. Gerardo MS, Jeffy R, Van Cristiane ML, et al. Vibration-controlled transient elastography to assess fibrosis and steatosis in patients with nonalcoholic fatty liver disease. Clin Gastroenterol Hepatol 2019;17:156-163. Note: 1. Fibroscan cannot reliably identify earlier stages of fibrosis (ie distinguish F0 from F1 and F2) and thus a histologic stage cannot be predicted from the Fibroscan reading. 2. Assessing the likelihood of advanced fibrosis in patients with indeterminate liver stiffness measurement (LSM) by Fibroscan (e.g., 8-15 kPa) can be improved by also calculating the FIB4 score (Davyduke et al. Hepatology Communications 2019;3:9604-0072) or NAFLD Fibrosis score (Caro et al. Clinical Gastroenterology and Hepatology 2019;17:4076-5497. from routine clinical data. 3. Liver stiffness can be increased by factors other than fibrosis including passive congestion, infiltrative processes, active alcoholism, biliary obstruction and marked inflammation. The interpretation of the Fibroscan result provided above may not have taken such clinical factors into account. Disease etiology also influences Fibroscan cutoff values for fibrosis stages and the following cutoffs have been proposed (Ashleigh et al, Clin Gastro Hepatol 2015; 13:27-36): Cutoffs for Stage 3 and Stage 4 fibrosis respectively: Hepatitis B: >9 and >11.7 kPa Hepatitis C: >9.5 and >12.5 kPa HCV-HIV: >11 and >14 kPa Cholestatic liver diseases: >10 and >17.9 kPa NAFLD/HAND: >10 and >14 kPa CAP estimates of steatosis: normal <200 dB/m mild 200 to 250 dB/m moderate 250-290 dB/m substantial > 290 dB/m (Note that Fibroscan is not a quantitative measure of liver fat.) These criteria are estimates and may change as additional supporting data becomes available. http://[email or web address]/ycx-[email or web address]-[email or web address] Yoli Olvera APRN-RESEARCH LABORATORY SPECIALIST PROCEDURE/PR NOR SURGICAL ORDERABLES * PT-INR [facility] (10/27/2020 1:40 PM LADLE REPAIRER) [facility] PT 12.1 12.1 - 14.8 Seconds 10/27/2020 2:05 PM LADLE REPAIRER [facility] INR 0.9 See Comment 10/27/2020 2:05 PM LADLE REPAIRER [facility] Comment:The suggested therap eutic range for standard coumadin (warfarin) therapy is an INR of 2.0-3.0. For high-risk patients (Mechanical Mitral Valve Prosthesis, etc.), the suggested prophylactic therapeutic range is an INR of 2.5-3.5. Blood BLOOD SPECIMEN / Unknown Lab Venipuncture / Unknown 10/27/2020 1:40 PM LADLE REPAIRER 10/27/2020 1:57 PM LADLE REPAIRER [facility] COAGUL ATION ORDERABLES [facility] [address] [place] [address], [facility] [place] [phone] * (ABNORMAL) HEPATITIS C RNA QUANTITATIVE (10/27/2020 1:40 PM LADLE REPAIRER) [facility] Hepatitis C Virus Quant by PCR, Blood 3,531,631 (H) Not detected IU/mL 10/30/2020 11:09 AM LADLE REPAIRER [facility] Hepatitis C RNA PCR, Interp Detected( A) Not Detected 10/30/2020 11:09 AM LADLE REPAIRER [facility] Blood BLOOD SPECIMEN / Unknown Lab Venipuncture / Unknown 10/27/2020 1:40 PM LADLE REPAIRER 10/27/2020 3:32 PM LADLE REPAIRER Narrative [facility] - 10/30/2020 11:09 AM LADLE REPAIRER The Hepatitis C viral (HCV) RNA analysis utilized a serum sample, real-time reverse hatch supervisor PCR, and is reported as Not Detected, [...] the isolation of HCV RNA with reverse hatch supervisor of genomic HCV RNA followed by real-time PCR in the presence of an unrelated RNA internal control. The internal control ensures that RNA is isolated, and that no general significant inhibitors of the RT-PCR process are present. The analysis was performed using a U.S. FDA approved test methodology (Distil Interactive Real Time HCV). Yoli Olvera RISK PREVENTION ENGINEER-RESEARCH LABORATORY SPECIALIST LAB - CHEMIS TRY ORDERABLES [facility] [address] [place] [place] [address], [facility] [place] [phone] * (ABNORMAL) CBC WITH DIFFERENTIAL (10/27/2020 1:40 PM LADLE REPAIRER) WBC 15.5(H) 3.5 - 10.5 10 3/uL 10/27/2020 2:01 PM [facility] RBC 4.91 3.90 - 5.00 10 6/uL 10/27/2020 2:01 PM [facility] Hemoglobin 15.4 12.0 - 15.5 g/dL 10/27/2020 2:01 PM [facility] Hematocrit 46.9(H) 35.0 - 45.0 % 10/27/2020 2:01 PM [facility] MCV 95.5 81.0 - 97.0 fL 10/27/2020 2:01 PM [facility] MCH 31.4 28.0 - 34.0 pg 10/27/2020 2:01 PM [facility] MCHC 32.8 32.0 - 36.0 g/dL 10/27/2020 2:01 PM [facility] Platelet Count 248 150 - 400 10 3/uL 10/27/2020 2:01 PM [facility] RDW-SD 45.0 36.0 - 50.0 fL 10/27/2020 2:01 PM [facility] RDW-CV 12.7 11.2 - 14.8 % 10/27/2020 2:01 PM [facility] MPV 11.2 9.3 - 12.8 fL 10/27/2020 2:01 PM [facility] nRBC Absolute 0.00 0 10 3/uL 10/27/2020 2:01 PM [facility] nRBC Auto 0.0 0 /100 WBC 10/27/2020 2:01 PM [facility] Neutrophils % 75.3(H) 35.0 - 70.0 % 10/27/2020 2:01 PM [facility] Lymphocytes % 17.4(L) 19.7 - 55.1 % 10/27/2020 2:01 PM [facility] Monocytes % 5.7 3.0 - 15.0 % 10/27/2020 2:01 PM [facility] Eosinophils % 0.8 0.0 - 6.0 % 10/27/2020 2:01 PM [facility] Basophil % 0.3 0.0 - 1.5 % 10/27/2020 2:01 PM [facility] Neutrophils Absolute 11.7(H) 1.6 - 7.0 10 3/uL 10/27/2020 2:01 PM [facility] Lymphocyte Absolute 2.7 0.8 - 2.9 10 3/uL 10/27/2020 2:01 PM [facility] Monocytes Absolute 0.88(H) 0.14 - 0.66 10 3/uL 10/27/2020 2:01 PM [facility] Eosinophils Absolute 0.12 0.00 - 0.45 10 3/uL 10/27/2020 2:01 PM [facility] Basophils Absolute 0.05 0.00 - 0.06 10 3/uL 10/27/2020 2:01 PM [facility] Immature Granulocytes % 0.5 0.0 - 1.0 % 10/27/2020 2:01 PM [facility] Blood BLOOD SPECIMEN / Unknown Lab Venipuncture / Unknown 10/27/2020 1:40 PM LADLE REPAIRER 10/27/2020 1:55 PM LADLE REPAIRER Yoli Alford Wade RISK PREVENTION ENGINEER-RESEARCH LABORATORY SPECIALIST LAB - HEMATO LOGY ORDERABLES Performing Organization Address City/State/[facility] Co de Phone Number [facility] [address] [place] [address], [facility] [place] [phone] * (ABNORMAL) COMPREHENSIVE METABOLIC PANEL (10/27/2020 1:40 PM LADLE REPAIRER) BUN 12 7 - 26 mg/dL 10/27/2020 2:22 PM [facility] Creatinine 0.8 0.6 - 1.2 mg/dL 10/27/2020 2:22 PM [facility] Sodium 140 136 - 145 mmol/L 10/27/2020 2:22 PM [facility] Potassium 4.3 3.5 - 4.5 mmol/L 10/27/2020 2:22 PM [facility] Chloride 103 98 - 107 mmol/L 10/27/2020 2:22 PM [facility] CO2 26 22 - 29 mmol/L 10/27/2020 2:22 PM [facility] Glucose 144(H) 70 - 115 mg/dL 10/27/2020 2:22 PM [facility] Calcium 10.3(H) 8.4 - 10.2 mg/dL 10/27/2020 2:22 PM [facility] Protein Total 7.8 6.0 - 8.3 g/dL 10/27/2020 2:22 PM [facility] Albumin 4.4 3.4 - 5.0 g/dL 10/27/2020 2:22 PM [facility] Bilirubin Total 0.7 0.2 - 1.2 mg/dL 10/27/2020 2:22 PM [facility] Alkaline Phosphatase 68 40 - 150 Units/L 10/27/2020 2:22 PM [facility] ALT 88(H) 0 - 55 Units/L 10/27/2020 2:22 PM [facility] AST 36(H) 5 - 34 Units/L 10/27/2020 2:22 PM [facility] Anion Gap 15 8 - 18 10/27/2020 2:22 PM [facility] BUN/Creatinine Ratio 15 7 - 23 10/27/2020 2:22 PM [facility] Osmolality Calculated 292 270 - 300 mOsm/kg 10/27/2020 2:22 PM [facility] Albumin/Globulin Ratio 1.3 1.1 - 2.3 10/27/2020 2:22 PM [facility] eGFR >60 >60 mL/min/1.7 3 m2 10/27/2020 2:22 PM [facility] Blood BLOOD SPECIMEN / Unknown Lab Venipuncture / Unknown 10/27/2020 1:40 PM LADLE REPAIRER 10/27/2020 1:55 PM LADLE REPAIRER Yoli Olvera RISK PREVENTION ENGINEER-RESEARCH LABORATORY SPECIALIST LAB - CHEMIS TRY ORDERABLES [facility] [address] [place] [address], [facility] [place] [phone] * HEPATITIS B SURFACE ANTIBODY (10/27/2020 1:40 PM LADLE REPAIRER) Hepatitis B Virus Surface Antibody Non-react key Non-react key 10/27/2020 2:39 PM [facility] Comment: < 8 mIU/mL Hepatitis B surface Antibody (HBsAb). Nonreactive for HBsAb - individual is considered not immune to Hepatitis B Virus infection. Hepatitis B Surface Antibody Quantitative 0.3 <8.0 mIU/mL 10/27/2020 2:39 PM [facility] Comment: Hepatitis B Surface Antibody Numeric Result Interpretation: Nonreactive: <8.0 mIU/mL Indeterminate: 8.0 - 12.0 mIU/mL Reactive: >12.0 mIU/mL Blood BLOOD SPECIMEN / Unknown Lab Venipuncture / Unknown 10/27/2020 1:40 PM LADLE REPAIRER 10/27/2020 1:56 PM LADLE REPAIRER Yoli Olvera RISK PREVENTION ENGINEER-RESEARCH LABORATORY SPECIALIST LAB - CHEMIS TRY ORDERABLES Performing Organization Address [facility]/ZIP Co de Phone Number [facility] [address] [place] [address], [facility] [place] [phone] * PATHOLOGY TISSUE FOR DERMATOLOGY (10/10/2014 12:00 AM LADLE REPAIRER) Only the most recent of2 resultswithin the time period is included. Result CASE: [id number] PATIENT: JAQUELINE MACIAS PATHOLOGIC DIAGNOSIS: Right breast: VERRUCA VULGARIS CLINICAL DATA: SK. GROSS DESCRIPTION: Received is one formalin filled container labeled with the patient's name and designated right breast. The specimen consists of a shave biopsy measuring 7x6x3 mm. Jar 0. MICROSCOPIC DESCRIPTION: There is digitated epidermal hyperplasia, hypergranulos is, vacuolated granular layer cells, and compact hyperorthoker atosis. Electronicall y signed out by Aisha Castrejon M.D., PhD. 10/14/2014 12:06:05PM [facility] Comment: Performed at: Dermatopathology Laboratory [facility] - Department of Dermatology [address] [place] [address] 5th [place] [address] Phone number: [phone] FAX: [phone] 10/10/2014 10/11/2014 [facility] LAB - PATHOLOGY/CYTO LOGY ORDERABLES Performing Organization Address [facility]/ZIP Co de Phone Number [facility] [address] [place] [address]. 5th [place] [address], [facility] [place] [phone]
--- OUTSIDE RECORDS SUMMARY | 2024-12-04 11:47 | XMS_ITS | Referral Summary ---
Author Organization [facility] Address [address] [place] [address] Care Team Providers Care Stack Yield Engineer Name Role Phone Unavailable Primary Care Provider Unavailabl e Source Comments [facility],non-owned Affiliates and Associated Physician Practices is amultiple site organization consisting of ambulatory clinics and hospital sitesin [place], [place], [place] and [place]. This disclosure is being madepursuant to the Care Everywhere program and may not contain all information available regarding this patient. Last updated 18.[facility] Allergies No known active allergies Medications * [...] 12/15/2020 12:44 PM CDT Plan of Treatment Not on file Goals Goal Patient Goal Type Associated Problems Recent Progress Patient-Stated? Author Medication Management General On track( 021 1:41 PM CDT) Guadalupe Seay, JANE Note: Expected end date: ongoing Interventions: Take all medications as prescribed Procedures Procedure Name Priority Date/Time Associated Diagnosis Comments COMP MET PANEL (EXTERNAL RESULT ENTRY) Routine 01/14/2021 HEPATITIS C RNA QUANTITATIVE Routine 10/27/2020 1:40 PM JV BASEBALL COACH Chronic hepatitis C without hepatic coma (HCC) from Last 3 Months or Most Recently Relevant to Health Maintenance Results * (ABNORMAL) COMP MET PANEL (EXTERNAL RESULT ENTRY) (01/14/2021) Pathologist [facility] Glucose (EXTERNAL) 138(A) 70 - 99 mg/dL [...] HEPATITIS C RNA QUANTITATIVE (10/27/2020 1:40 PM JV BASEBALL COACH) Pathologist [facility] Hepatitis C Virus Quant by PCR, Blood 3,531,631 (H) Not detected IU/mL 10/30/2020 11:09 AM JV BASEBALL COACH [facility] Hepatitis C RNA PCR, Interp Detected( A) Not Detected 10/30/2020 11:09 AM JV BASEBALL COACH [facility] Blood BLOOD SPECIMEN / Unknown Lab Venipuncture / Unknown 10/27/2020 1:40 PM JV BASEBALL COACH 10/27/2020 3:32 PM JV BASEBALL COACH Narrative [facility] - 10/30/2020 11:09 AM JV BASEBALL COACH The Hepatitis C viral (HCV) RNA analysis utilized a serum sample, real-time reverse community development manager PCR, and is reported as Not Detected, [...] the isolation of HCV RNA with reverse community development manager of genomic HCV RNA followed by real-time PCR in the presence of an unrelated RNA internal control. The internal control ensures that RNA is isolated, and that no general significant inhibitors of the RT-PCR process are present. The analysis was performed using a U.S. FDA approved test methodology (SCM-GL Real Time HCV). Yoli Olvera NUCLEAR MEDICINE SUPERVISOR-ASSOCIATE PROFESSOR OF BIOSTATISTICS LAB - CHEMIS TRY ORDERABLES [facility] [address] [place], [place] [address], [facility] [phone] from Last 3 Months or Most Recently Relevant to Health Maintenance Jaqueline Macias Personal/Family Self 1955 ([place]) [address] [place] [address]
--- OUTSIDE RECORDS SUMMARY | 2024-12-04 11:47 | XMS_ITS | Clinical Summary ---
Author Organization [facility] Address [address] [place] [address] Care Team Providers Care Bottle Booth Attendant Name Role Phone Dorian Tello MD Primary Care Provider Allergies Active Allergy Reactions Criticality Noted Date Comments Unclassified Drug Nausea & Vomiting Low 08/06/2022 Unknown antibiotic with UTI, thinks its Cipro or Keflex Medications blood sugar diagnostic (ONETOUCH ULTRA BLUE TEST STRIP [facility] [place] OneTouch Ultra Blue Test Strip TEST BLOOD [...] (07/19/2022): Added automatically from request for surgery [id number] Surgical History Surgery Date Site/Laterality Comments PARTIAL HYSTERECTOMY @ age 55 OVARIAN CYST REMOVAL Left @ at age 56 ELBOW SURGERY Left @ age 50 BREAST SURGERY 09/26/1979 - 09/25/1980 Left 2 lump's removed- marker in place FINGER SURGERY Left index finger surgery x2 unknown dates Medical History Medical History Date Comments Diabetes mellitus (HCC) reports A1C 6.1 in 06/2022 Hypertension High cholesterol PONV (postoperative nausea and vomiting) severe had to be admitted GERD (gastroesophageal reflux disease) well controlled Insomnia Family History Medical History Relation Name Comments Cancer Father Hypertension Father Stroke Father Diabetes Mother Heart disease Mother Relation Name Status Comments Father Mother Social History Tobacco Use Types [...] on file Legal Sex Female 1:06 AM INTELLIGENCE CHIEF Gender Identity Not on file Sexual Orientation Not on file Obstetrics History Last Filed Vital Signs Vital Sign Reading Time Taken Comments Blood Pressure 143/70 08/24/2022 10:00 AM INTELLIGENCE CHIEF Pulse 81 08/24/2022 10:05 AM INTELLIGENCE CHIEF Temperature 36.2 C (97.2 F) 08/24/2022 10:05 AM INTELLIGENCE CHIEF Respiratory Rate 22 08/24/2022 10:0 5 AM INTELLIGENCE CHIEF Oxygen Saturation 96% 08/24/2022 10: 05 AM INTELLIGENCE CHIEF Inhaled Oxygen Concentration - - Weight 85.1 kg (187 lb 11.2 oz) 08/24/2022 5:54 AM INTELLIGENCE CHIEF Height 170.2 cm (5' 7 ) 08/24/2022 5:54 AM INTELLIGENCE CHIEF Body Mass Index 29.4 08/24/2022 5:54 AM INTELLIGENCE CHIEF Plan of Treatment Health Maintenance Due Date Last Done Comments Breast Cancer Screening-Mammogram 1955 Colon Cancer Screening-Colonoscopy 1955 Depression Screening 1955 Hepatitis C Screening 1955 Osteoporosis Screening-Bone Density Scan 1955 DTaP/Tdap/Td Vaccine (1 - Tdap) 1966 Lung Cancer Screening 2005 Pneumococcal vaccine 65+ (1 of 1 - PCV) 2005 Zoster Vaccine (1 of 2) 2005 Well Visit 65+ 02/08/2020 Fall Risk Assessment 08/24/2023 08/24/2022 Influenza Vaccine (#1) 2024 06/30/2015, 2012 Hepatitis B Screening Completed 12/03/2020 Medical Devices Implanted Type Area Trouble Clerk Device Identifier Shelf Expiration Date Model / Serial / Lot Titanium Left: Breast Description:Left breast steffen nium implant [employer] Set Implant [employer] Fibertak Biceps Sterile Latex Free Ar-[id number] - [id number] Implanted:Qty: 1 on 08/24/2022 by Sony Banks MD at [facility] Right: Shoulder [employer] 03/25/2027 AR-3670 / / [id number] [employer] Swivelock C 4.75mm 19.1mm Closed Eyelet Vent [place] Suture Ar-[id number] - [id number] Implanted:Qty: 1 on 08/24/2022 by Sony Banks MD at [facility] [place] Right: Shoulder [employer] 06/25/2026 [id number] / / [id number] Insurance [place] Care Teams Bottle Booth Attendant Relationship Specialty Start Date End Date Dorian Tello MD [address] [facility] [id number] [place] [address] PCP - General Internal Medicine 07/13/22
--- OUTSIDE RECORDS SUMMARY | 2024-12-04 11:48 | XMS_ITS | Data Portability ---
Author Organization [place] - [facility] [employer], Main Office Address [address] [place] [address] Assessment Encounter Date Assessment Date Assessment LastModified by Organization Details LastModified Time 11/26/2024 11/26/2024 Assessment: Nicotine smoke: 1 ppd 1976-present (quit 6 years in between) = 42 pack years LLL cavitary nodule Cough Dyspnea Plan: The following were reviewed and explained to the patient: primary care/referral note PET/CT 10/25/23 emphysema, GGO, AD atelectasis, up to 7 mm AD nodules and GGOs Chest CT 03/02/23 emphysema, 5.5 mm LLL nodule, 6 mm RUL nodule Chest CT 09/12/23 up to 9 mm left lung nodules and GGOs Chest CT 10/30/24 emphysema, 13 mm LLL cavitary nodule, BUL scars and GGOs Nicotine cessation counseling provided for 3.5 minutes. [place] for quitting nicotine include getting ready, getting support and encouragement, learning new skills and behaviors and being prepared to handle slips. Tips for dealing with cravings provided. Prevention of subsequent illnesses from nicotine addiction discussed. Comorbidities include but are not limited to hypertension, cerebrovascular disease, coronary heart disease, congestive heart failure, hyperlipidemia, COPD/asthma, peptic ulcer disease, esophagitis/gastri tis, and osteoporosis. Therapy options offered include: Quitting by total abstinence Receiving nicotine replacement therapy Undergoing hypnosis Filling a bupropion or varenicline prescription Enrolling in Quit For Life program Registering at www.quitline.com Making a call to 9-320-NIJU-NOW ( ). A strong, clear, personalized message was given to the patient to quit smoking. The patient was urged to set a quit date. We discussed patient's barriers to quitting and I will be of assistance when patient is ready to quit. I encouraged patient to inform friends and family of plans to quit with a request for support. I encouraged the patient to remove all cigarettes from the environment. We reviewed any previous quit attempts and lessons learned from them. I encouraged total abstinence from smoking and advised the patient that drinking alcohol and/or associating with other smokers are associated with failure or relapse. Patient can enroll in [facility]'s smoking cessation class through Sally Carlson RN at . Enrollment is free and classes are held every tuesday of the month from 1:30 pm to 2:30 pm at the conference room next to the cafeteria on the ground floor. The patient quit by total abstinence 2 previous times. Differential diagnoses for pulmonary nodule: 1. malignant tumor 2. benign tumor 3. inflammatory processes 4. infectious process (viral, atypical bacterial, fungal, atypical mycobacterial) The Fleischner Society pulmonary nodule recommendations below pertain to the follow-up and management of indeterminate pulmonary nodules detected incidentally on CT and are published by the Fleischner Society. The guideline does not apply to lung cancer screening, patients younger than 35 years, or patients with a history of primary cancer or immunosuppression. These recommendations reflect the 2017 revision 4, which supersedes prior versions published in 2005 and 2013. Single solid nodule <6 mm (<100 mm3) *low-risk patients: no routine follow-up required *high-risk patients: optional CT at 12 months (particularly with suspicious nodule morphology and/or upper lobe location) Single solid nodule 6-8 mm (100-250 mm3) *low-risk patients: CT at 6-12 months, then consider CT at 18-24 months *high-risk patients: CT at 6-12 months, then CT at 18-24 months Single solid nodule >8 mm (>250 mm3) *low-risk and high-risk patients: consider CT at 3 months, PET/CT, or tissue sampling PET/CT scan ordered. Cough/Dyspnea workup will be done as follows: Respiratory allergen panel for [facility] Serum IgE Serum total IgG, IgG1, IgG2, IgG3, IgG4 Aukey-9-cnskqcfeps n phenotype and level TB stimulated gamma interferon B-type natriuretic peptide (BNP) Eosinophil count Complete pulmonary function testing (PFT) Adherence to therapy is advocated. Nonadherence may lead to treatment failure, further progression of the condition, and other complications. Hospitals admissions are often the result of individuals not taking prescription medications accurately. Alternatively, greater adherence to medication regimens have shown to lower rates of hospitalization and decrease total medical costs in patients with chronic medical conditions. Advocated influenza vaccination annually and pneumonia vaccination RUTHANN. Advocated weight loss through diet and exercise. Patient's ideal body weight according to height and gender is up to 135 lbs. Encouraged patient to adjust caloric intake to maintain/achieve ideal body weight, emphasizing on fruits, vegetables, whole grains, and fat-free or low-fat products. These include lean meats, poultry, fish, beans, eggs, and nuts and foods that are low in saturated fats, trans-fats, cholesterol, salt (sodium), and glycemic index. Stressed the importance of regular exercise up to the patient's capacity limits. In this case, we recommend 20 min daily walking, 2 days a week of resistance training. Patient to monitor BP daily and bring records to PCP for further management. Follow-up: 1 week after PET/CT scan and PFT [email or web address] Not available 11/26/2024 11:21:05 Plan of Treatment Reminders Order Date Submit Date Provider Last Modified By Organization Details Last Modified Time Details Appointments None recorded. Lab alpha-1-an titrypsin (aat) phenotype, serum 2024 025 [facility], [address] [place], [address], 5 08:23:03 BNP (B-type natriureti c peptide), serum or plasma 2024 025 [facility], [address] [place], [address], 5 14:47:29 ige, total, serum 2024 025 [facility], [address] [place], [address], 5 04:05:11 tb (M tuberculos is), ifn-gamma yodit, blood 2024 025 [facility], [address] [place], [address], 5 04:05:11 igg subclasses 1+2+3+4, serum 2024 025 [facility] - Outpatient Lab, [address] [place], [address], 5 04:05:11 respirator y allergen panel, [facility] A, serum 2024 025 [facility] - Outpatient Lab, [address] [place], [address], 5 04:05:11 respirator y allergen panel - [facility] b 2024 025 [facility], [address] [place], [address], 5 04:05:12 eosinophil s, quant, blood 2024 025 [facility] - Outpatient Lab, [address] [place], [address], 5 04:05:12 lipid panel, serum [id number] [place] [address] Radiology, [facility] [place] [address], [facility], [place], [address], 4 16:06:44 HbA1c (hemoglobi n A1c), blood [id number] [place] [address] Radiology, [address] [place] [address], [facility], [place], [address], 4 16:06:44 microalbum in, urine [id number] Radiology, [facility] [place] [address], [address], [address], 4 16:06:45 magnesium, serum or plasma [id number] [place] [address] Radiology, [facility] [place] [address], [facility], [place], [address], 4 16:06:44 vitamin B12, serum [id number] Radiology, [address] [facility] [address], [facility], [place], [address], 4 16:06:44 CBC w/ auto diff [address] Radiology, [address] [facility] [address], [facility], [place], [address], 4 16:06:44 CMP, serum or plasma [address] Radiology, [address] [facility] [address], [facility], [place], [address], 4 16:06:44 lipid panel, serum [address] Radiology, [address] [place] [address], [facility], [place], [address], 4 12:15:01 CMP, serum or plasma [address] Radiology, [address] [place] [address], [facility], [place], [address], 4 12:15:01 TSH, serum or plasma [id number] Radiology, [address] [place] [address], [facility], [place], [address], 4 12:15:02 T4, free, serum [id number] Radiology, [address] [place] [address], [facility], [place], [address], 4 12:15:02 vitamin B12, serum [address] Radiology, [address] [place] [address], [facility], [place], [address], 4 12:15:02 magnesium, serum or plasma [id number] Radiology, [address] [place] [address], [address], [address], 4 12:15:02 HbA1c (hemoglobi n A1c), blood [id number] Radiology, [address] [place] [address], [facility], [place], [address], 4 12:15:02 microalbum in, urine [id number] Radiology, [address] [place] [address], [facility], [place], [address], 4 12:15:02 CBC w/ auto diff [id number] Radiology, [facility] [place] [address], [address], [address], 4 12:15:01 drug screen, urine 2023 024 [id number] [facility], [facility] [address], [place], [address], 4 12:15:03 vitamin B12, serum [id number] [place] [address] Outpatient Lab, [address] [place], [address], 3 10:07:54 magnesium, serum or plasma [id number] Outpatient Lab, [address] [place], [address], 3 10:07:54 HbA1c (hemoglobi n A1c), blood [id number] [place] [address] Outpatient Lab, [address] [place], [address], 3 10:07:54 CBC w/ auto diff [id number] [place] [address] Outpatient Lab, [address] [place], [address], 3 10:07:53 CMP, serum or plasma [id number] [place] [address] Outpatient Lab, [address] [place], [address], 3 10:07:54 lipid panel, serum [id number] [place] [address] Outpatient Lab, [address] [place], [address], 3 10:07:54 lipid panel, serum [id number] [place] [address], [address] [place], [address], 3 15:19:35 CMP, serum or plasma [id number] [place] [address], [address] [place], [address], 3 15:19:35 TSH, serum or plasma [id number] [place] [address], [address] [place], [address], 3 15:19:35 T4, free, serum [id number] [place] [address], [address] [place], [address], 3 15:19:36 vitamin B12, serum [id number] [place] [address], [address] [place], [address], 3 15:19:37 magnesium, serum or plasma 2022 023 [id number] [facility], [address] [place] [address], [address], 3 15:19:37 HbA1c (hemoglobi n A1c), blood 2022 023 [id number] [facility], [address] [place] [address], [address], 3 15:19:36 microalbum in, urine 2022 023 [facility], [address] [place] [address], [address], 3 15:19:36 CBC w/ auto diff 2022 023 [id number] [facility], [address] [place] [address], [address], 3 15:19:36 drug screen, urine 2022 023 [id number] [facility], [facility] [address] , [place], [address], 3 15:19:37 tramadol, quantitati ve, urine 2022 023 [id number] [facility], [address] [place] [address], [address], 3 15:19:37 Referral None recorded. Procedures None recorded. Surgeries None recorded. Imaging PET-CT, skull base to mid-thigh scan - Updated order for 12/04/2024 . 2024 025 [facility], [address], [place], [address], 5 14:25:59 Medication Orders None recorded. Patient TargetsNo targets recorded. Patient Instructions Encounter Date Encounter Id Patient Instructions Last Modified By Organization Details Last Modified Time 02/14/2023 [id number] Hypertension -hyperlipidemia - type 2 diabetes -GERD-chronic pain syndrome- obesity class one. New on current Rx Not available 02/14/2023 16:26:02 08/22/2023 [id number] dementia rating scale-2* [email or web address] Not available 08/22/2023 16:57:44 alcohol misuse* [email or web address] Not available 08/22/2023 16:57:45 depression screening* Not available 08/22/2023 16:57:44 multi-dimensiona l health assessment questionnaire* [email or web address] Not available 08/22/2023 16:57:44 Personalized [facility] Plan and Screening Recommendations Advance Directives - Do you have one? No Advance Directives - Do we have your advance directive on file in your health record? Primary Prevention/Interven tion (prevents or decreases the chance of common diseases from occurring) Smoking Risk: Smoker Refer to attached smoking cessation handouts Refer to attached handouts and prescription will be sent to pharmacy Continue to consider stopping smoking and call if we can assist you Alcohol Misuse Screening: Negative Weight: Appropriate Overwei ght continue your current weight loss efforts try to lose 5% of your body weight try to lose 10% of your body weight Physical activity: Need more exercise/physical activity Nutrition: Good Average Fall Risk (screened today): Low Vaccines Pneumococcal: Ordered Recommended today Recommended today, but you have declined No further needed Influenza: Ordered Recommended today Recommended today, but you have declined Chronic Disease Risks Stroke: Low Risk Intermediate Risk I have no recommendations Act pili diagnosis, Continue current treatment plan Heart Attack: Low risk Intermediate Risk I have no recommendations Act pili diagnosis, Continue current treatment plan Clogging of the Arteries: Low risk Intermediate Risk I have no recommendations Act pili diagnosis, Continue current treatment plan Diabetes: Low Risk Intermediate Risk Active diagnosis, Continue current treatment plan Secondary Prevention/Interven tion (detects treatable diseases before they may cause symptoms, disability, or ) Breast Cancer Screening with mammogram: Cervical/Uterine/Ov marina Cancer Screening: No screening necessary Osteoporosis Screening: Your next DEXA in: Ordered Recomme nded today Date Screening Last Performed: Colon Cancer Screening: Colonoscopy Fecal Occult Blood Cologuard (DNA stool test) Date Screening Last Performed: Eye Disease Screening: Dementia Risk: Low I have no recommendations Depression Screening: Negative [email or web address] Not available 08/22/2023 16:47:53 Medicare wellnes s evaluation risk assessment stable. Follow-up for hypertension-hyperl ipidemia- type 2 diabetes -GERD all clinically stable. Overall is doing well. Will continue on current medications. Does take pain medications for her back pain. He is currently doing well otherwise. Check blood work in the form of CBC, CMP, lipid, vitamin-D. Does need a bone density scan and colon screen. Also needs a repeat CT scan of the chest without contrast for right upper lobe nodule at the request of Radiology. Currently doing well otherwise. Continue on current Rx follow-up in six months. FDA recommendations of a influenza, RSV, COVID, pneumococcal immunizations strongly advised. Portions of the record may have been created with voice recognition software. Occasional wrong-word or s ound-a-like substitutions may have occurred due to the inherent limitations of voice recognition software. Read the chart carefully and recognize, using context, where substitutions have occurred. Repeat CT scan of the chest for right upper lobe nodule at the request Radiology. Had one performed on 03/02/2023 due after 09/01/2023 Regard Bone density scan after 09/03/2023 Next Appt: 4 Months Approximate Date: 12/20/2023 [email or web address] Not available 08/22/2023 16:57:15 02/13/2024 [id number] Hypertension, hyperlipidemia, type 2 diabetes, GERD as well as chronic pain syndrome all clinically stable. Will check blood work consisting of CBC, CMP, lipid, thyroid, hemoglobin A1c, B12, magnesium and microalbumin. Will increase the Ozempic from 0.5 mg to 1 mg Weekly. Continue on current Rx follow-up in six months Next Appointment: 6 Months Approximate Date: 08/11/2024 Portions of the record may have been created with voice recognition software. Occasional wrong-word or s ound-a-like substitutions may have occurred due to the inherent limitations of voice recognition software. Read the chart carefully and recognize, using context, where substitutions have occurred. Not available 02/13/2024 16:51:27 08/20/2024 [id number] Follow-up for essential hypertension, GERD, hyperlipidemia, type 2 diabetes all clinically stable. Overall doing well. Will check blood work consisting of CBC, CMP, lipid, thyroid, hemoglobin A1c and microalbumin. Continue on current Rx. Will stop the metformin and increase the Ozempic to 2 mg weekly. Follow-up in six months Follow Up: 6 Months Approximate Date: 02/16/2025 Portions of the record may have been created with voice recognition software. Occasional wrong-word or s ound-a-like substitutions may have occurred due to the inherent limitations of voice recognition software. Read the chart carefully and recognize, using context, where substitutions have occurred. Created: Dorian Tello M.D. 08.20.2024 03:38 PM [email or web address] Not available 08/20/2024 16:38:23 11/26/2024 [id number] complete PFT w/ post bronchodilator spirometry* - Please call patient to schedule. NPAN [id number] per payor website. [email or web address] Not available 11/27/2024 08:15:23 Reason for Referral None Reported. Results Created Date Observation Date Name Description Value Unit Range Abnormal Flag Note LastModifiedBy Organization Detail LastModifiedTime 03/02/2003/02/2023 LIPID PANEL cholesterol 115 mg/dL 140-19 9 low NIH MAYDA NSUS RECOM MENDA TION FOR JOSE STERO L: ADULT CHILD LOW RISK: <200 <170 BORDE RLINE : <200- 239 ----- HIGH RISK: >240 >200 Not Available [facility] (Lab) [address] [place], [address], 03/02/2023 12:32:34 03/02/2003/02/2023 LIPID PANEL triglyceride s 133 mg/dL 0-150 NIH MAYDA NSUS REPOR T RECOM MENDA TION FOR TRIGL YCERI DAJA: ADULT CHILD LOW RISK: <150 ----- BODER LINE: 150-1 99 ----- HIGH RISK: >200 ----- Not Available [facility] (Lab) [address] [place], [address], 03/02/2023 12:32:34 03/02/2003/02/2023 LIPID PANEL HDL cholesterol 33 mg/dL 40- low Not Available [facility] (Lab) [address] [place], [address], 03/02/2023 12:32:34 03/02/20 23 03/02/2023 LIPID PANEL LDL cholesterol, calculated 55 mg/dL 0-130 NIH MAYDA NSUS REPOR T RECOM MENDA TIONS FOR LDL: ADULT CHILD LOW RISK <130 <110 (OPTI MAL LDL) <100 ----- BORDE RLINE : 130-1 59 ----- HIGH RISK: >160 >130 A TRIGL YCERI DE RESUL T >400 INVAL IDATE S THE CALCU LATIO N FOR LDL FRACT IONAT ION - THE LDL RESUL T WILL NOT BE REPOR FELICE. Not Available [facility] (Lab) [address] [place], [address], 03/02/2023 12:32:34 03/02/20 23 03/02/2023 COMPR EHENS PILI METAB OLIC PANEL sodium 140 mmol/ L 137-14 5 Not Available [facility] (Lab) [address] [place], [address], 03/02/2023 12:32:40 03/02/20 23 03/02/2023 COMPR EHENS PILI METAB OLIC PANEL potassium 4.6 mmol/ L 3.5-5. 1 Not Available [facility] (Lab) [address] [place], [address], 03/02/2023 12:32:40 03/02/20 23 03/02/2023 COMPR EHENS PILI METAB OLIC PANEL chloride 102 mmol/ L 98-107 Not Available [facility] (Lab) [address] [place], [address], 03/02/2023 12:32:40 03/02/20 23 03/02/2023 COMPR EHENS PILI METAB OLIC PANEL carbon dioxide 23 mmol/ L 22-30 Not Available [facility] (Lab) [address] [place], [address], 03/02/2023 12:32:40 03/02/20 23 03/02/2023 COMPR EHENS PILI METAB OLIC PANEL anion gap 19.6 mmol/ L 14-22 Not Available [facility] (Lab) [address] [place], [address], 03/02/2023 12:32:40 03/02/20 23 03/02/2023 COMPR EHENS PILI METAB OLIC PANEL glucose 117 mg/dL 70-99 high Not Available [facility] (Lab) [address] [place], [address], 03/02/2023 12:32:40 03/02/20 23 03/02/2023 COMPR EHENS PILI METAB OLIC PANEL BUN 17 mg/dL 8-19 Not Available [facility] (Lab) [address] [place], [address], 03/02/2023 12:32:40 03/02/20 23 03/02/2023 COMPR EHENS PILI METAB OLIC PANEL creatinine 1.15 mg/dL 0.66-1 .25 Not Available [facility] (Lab) [address] [place], [address], 03/02/2023 12:32:40 03/02/20 23 03/02/2023 COMPR EHENS PILI METAB OLIC PANEL GFR 47 Refer ence Range : [place] GFR Healt hy Adult : >60 mL/mi n/1.7 3 m2 Chron ic Kidne y Disea se: 15-60 mL/mi n/1.7 3 m2 Kidne y Failu re: <15/m L/min /1.73 m2 www.n iddk. nih.g ov The MDRD study equat ion has not been valid ated in child jeremie <18 years of age; pregn ant women ; the elder ly >85 years of age; or in some racia l or ethni c subgr oups, such as Hispa nics. Outsi de the valid ated alexandra eters , estim ated GFR is less accur ate, requi ring clini robert judgm ent on a case- by-ca se basis . Clini robert inter preta tion for other races and ages must be made by the clini jeimy. The MDRD study equat ion has not been valid ated for the evalu ation of serum creat inine relat ed to nutri coleen l statu s or medic ation usage . For perso ns <18 years of age, a pedia tric GFR calcu lator is avail able on the [facility] websi te: https ://ww w.kid zi.o rg/pr ofess ional s/kdo qi/gf r_cal culat or Not Available [facility] (Lab) [address] [place], [address], 03/02/2023 12:32:40 03/02/20 23 03/02/2023 COMPR EHENS PILI METAB OLIC PANEL alkaline phosphatase 60 U/L 38-126 Not Available [facility] (Lab) [address] [place], [address], 03/02/2023 12:32:40 03/02/20 23 03/02/2023 COMPR EHENS PILI METAB OLIC PANEL alanine aminotransfe rase 24 U/L 0-35 Not Available [facility] (Lab) [address] [place], [address], 03/02/2023 12:32:40 03/02/20 23 03/02/2023 COMPR EHENS PILI METAB OLIC PANEL aspartate aminotransfe rase 23 U/L 15-37 Not Available [facility] (Lab) [address] [place], [address], 03/02/2023 12:32:40 03/02/20 23 03/02/2023 COMPR EHENS PILI METAB OLIC PANEL bilirubin, total 0.50 mg/dL 0.20-1 .30 Not Available [facility] (Lab) [address] [place], [address], 03/02/2023 12:32:40 03/02/20 23 03/02/2023 COMPR EHENS PILI METAB OLIC PANEL calcium 9.9 mg/dL 8.4-10 .2 Not Available [facility] (Lab) [address] [place], [address], 03/02/2023 12:32:40 03/02/20 23 03/02/2023 COMPR EHENS PILI METAB OLIC PANEL total protein 7.5 g/dL 6.3-8. 2 Not Available [facility] (Lab) [address] [place], [address], 03/02/2023 12:32:40 03/02/20 23 03/02/2023 COMPR EHENS PILI METAB OLIC PANEL albumin 4.4 g/dL 3.0-4. 4 Not Available [facility] (Lab) [address] [place], [address], 03/02/2023 12:32:40 03/02/20 23 03/02/2023 COMPR EHENS PILI METAB OLIC PANEL globulin 3.1 g/dL 2.6-4. 2 Not Available [facility] (Lab) [address] [place], [address], 03/02/2023 12:32:40 03/02/20 23 03/02/2023 COMPR EHENS PILI METAB OLIC PANEL A/G ratio 1.4 ratio 1.0-2. 0 Not Available [facility] (Lab) [address] [place], [address], 03/02/2023 12:32:40 03/02/20 23 03/02/2023 MAGNE SIUM magnesium 1.6 mg/dL 1.6-2. 3 Not Available [facility] (Lab) [address] [place], [address], 03/02/2023 12:32:42 03/02/20 23 03/02/2023 T4 FREE free T4 1.20 NG/dL 0.78-2 .19 Not Available [facility] (Lab) [address] [place], [address], 03/02/2023 12:34:31 03/02/20 23 03/02/2023 CBC/C OMPLE TE BLD COUNT W/DIF F white blood cells 10.4 x10'3 /uL 4.2-10 .8 Not Available [facility] (Lab) [address] [place], [address], 03/02/2023 12:39:36 03/02/20 23 03/02/2023 CBC/C OMPLE TE BLD COUNT W/DIF F red blood cells 4.63 x10'6 /uL 3.80-5 .20 Not Available [facility] (Lab) [address] [place], [address], 03/02/2023 12:39:36 03/02/20 23 03/02/2023 CBC/C OMPLE TE BLD COUNT W/DIF F hemoglobin 14.5 g/dL 12.0-1 5.6 Not Available [facility] (Lab) [address] [place], [address], 03/02/2023 12:39:36 03/02/20 23 03/02/2023 CBC/C OMPLE TE BLD COUNT W/DIF F hematocrit 44.6 % 35.7-4 5.7 Not Available [facility] (Lab) [address] [place], [address], 03/02/2023 12:39:36 03/02/20 23 03/02/2023 CBC/C OMPLE TE BLD COUNT W/DIF F mean red cell volume 96.3 fL 82.0-9 9.0 Not Available [facility] (Lab) [address] [place], [address], 03/02/2023 12:39:36 03/02/20 23 03/02/2023 CBC/C OMPLE TE BLD COUNT W/DIF F mean red cell hemoglobin 31.3 pg 27.0-3 3.0 Not Available [facility] (Lab) [address] [place], [address], 03/02/2023 12:39:36 03/02/20 23 03/02/2023 CBC/C OMPLE TE BLD COUNT W/DIF F mean RBC HGB concentratio n 32.5 g/dL 31.0-3 6.0 Not Available [facility] (Lab) [address] [place], [address], 03/02/2023 12:39:36 03/02/20 23 03/02/2023 CBC/C OMPLE TE BLD COUNT W/DIF F red cell distribution width 13.2 % 11.8-1 5.5 Not Available [facility] (Lab) [address] [place], [address], 03/02/2023 12:39:36 03/02/20 23 03/02/2023 CBC/C OMPLE TE BLD COUNT W/DIF F platelets 338 x10'3 /uL 150-40 0 Not Available [facility] (Lab) [address] [place], [address], 03/02/2023 12:39:36 03/02/20 23 03/02/2023 CBC/C OMPLE TE BLD COUNT W/DIF F mean platelet volume 11.1 fL 9.0-12 .4 Not Available [facility] (Lab) [address] [place], [address], 03/02/2023 12:39:36 03/02/20 23 03/02/2023 CBC/C OMPLE TE BLD COUNT W/DIF F neutrophils 56.5 % 39.0-7 2.0 Not Available [facility] (Lab) [address] [place], [address], 03/02/2023 12:39:36 03/02/20 23 03/02/2023 CBC/C OMPLE TE BLD COUNT W/DIF F lymphocytes 30.4 % 16.0-4 7.0 Not Available [facility] (Lab) [address] [place], [address], 03/02/2023 12:39:36 03/02/20 23 03/02/2023 CBC/C OMPLE TE BLD COUNT W/DIF F monocytes 8.0 % 5.0-12 .0 Not Available [facility] (Lab) [address] [place], [address], 03/02/2023 12:39:36 03/02/20 23 03/02/2023 CBC/C OMPLE TE BLD COUNT W/DIF F eosinophils 4.0 % 1.0-7. 0 Not Available [facility] (Lab) [address] [place], [address], 03/02/2023 12:39:36 03/02/20 23 03/02/2023 CBC/C OMPLE TE BLD COUNT W/DIF F basophils 0.6 % 0.0-2. 0 Not Available [facility] (Lab) [address] [place], [address], 03/02/2023 12:39:36 03/02/20 23 03/02/2023 CBC/C OMPLE TE BLD COUNT W/DIF F immature granulocytes 0.5 % 0.00-0 .50 Not Available [facility] (Lab) [address] [place], [address], 03/02/2023 12:39:36 03/02/20 23 03/02/2023 CBC/C OMPLE TE BLD COUNT W/DIF F neutrophils, absolute count 5.85 x10'3 /uL 1.5-8. 0 Not Available [facility] (Lab) [address] [place], [address], 03/02/2023 12:39:36 03/02/20 23 03/02/2023 CBC/C OMPLE TE BLD COUNT W/DIF F lymphocytes, absolute count 3.15 x10'3 /uL 1.07-3 .43 Not Available [facility] (Lab) [address] [place], [address], 03/02/2023 12:39:36 03/02/20 23 03/02/2023 CBC/C OMPLE TE BLD COUNT W/DIF F monocytes, absolute count 0.83 x10'3 /uL 0.29-0 .99 Not Available [facility] (Lab) [address] [place], [address], 03/02/2023 12:39:36 03/02/20 23 03/02/2023 CBC/C OMPLE TE BLD COUNT W/DIF F eosinophils, absolute count 0.41 x10'3 /uL 0.02-0 .53 Not Available [facility] (Lab) [address] [place], [address], 03/02/2023 12:39:36 03/02/20 23 03/02/2023 CBC/C OMPLE TE BLD COUNT W/DIF F basophils, absolute count 0.06 x10'3 /uL 0.01-0 .08 Not Available [facility] (Lab) [address] [place], [address], 03/02/2023 12:39:36 03/02/20 23 03/02/2023 CBC/C OMPLE TE BLD COUNT W/DIF F immature granulocytes ,absolute 0.05 x10'3 /uL 0.00-0 .05 Not Available [facility] (Lab) [address] [place], [address], 03/02/2023 12:39:36 03/02/20 23 03/02/2023 CBC/C OMPLE TE BLD COUNT W/DIF F nucleated red blood cells 0.0 % -0 Not Available [facility] (Lab) [address] [place], [address], 03/02/2023 12:39:36 03/02/20 23 03/02/2023 CBC/C OMPLE TE BLD COUNT W/DIF F NRBC# 0.00 x10'3 /uL Not Available [facility] (Lab) [address] [place], [address], 03/02/2023 12:39:36 03/02/20 23 03/02/2023 TSH thyroid-stim ulating hormone 2.470 uIU/m L 0.465- 4.680 Not Available [facility] (Lab) [address] [place], [address], 03/02/2023 12:52:37 03/02/20 23 03/02/2023 URINE DRUG SCREE N amphetamines NEGATI VE Amphe tamin e cut off 500 ng/mL Not Available [facility] (Lab) [address] [place], [address], 03/02/2023 12:59:05 03/02/20 23 03/02/2023 URINE DRUG SCREE N barbiturates NEGATI VE Beulah turat e cut off 200 ng/mL Not Available [facility] (Lab) [address] [place], [address], 03/02/2023 12:59:05 03/02/20 23 03/02/2023 URINE DRUG SCREE N benzodiazepi nia NEGATI VE Benzo diaze pine cut off 200 ng/mL Not Available [facility] (Lab) [address] [place], [address], 03/02/2023 12:59:05 03/02/20 23 03/02/2023 URINE DRUG SCREE N cocaine NEGATI VE Cocai ne metab olite cut off 150 ng/mL Not Available [facility] (Lab) [address] [place], [address], 03/02/2023 12:59:05 03/02/20 23 03/02/2023 URINE DRUG SCREE N MDMA NEGATI VE MDMA cut off 500 ng/mL Not Available [facility] (Lab) [address] [place], [address], 03/02/2023 12:59:05 03/02/20 23 03/02/2023 URINE DRUG SCREE N methadone NEGATI VE Metha done cutof f 300 ng/mL . Not Available [facility] (Lab) [address] [place], [address], 03/02/2023 12:59:05 03/02/20 23 03/02/2023 URINE DRUG SCREE N opiates POSITI VE abnormal Opiat e cut off 300 ng/mL Not Available [facility] (Lab) [address] [place], [address], 03/02/2023 12:59:05 03/02/20 23 03/02/2023 URINE DRUG SCREE N oxycodone NEGATI VE Oxyco done cut off 100 ng/mL Not Available [facility] (Lab) [address] [place], [address], 03/02/2023 12:59:05 03/02/20 23 03/02/2023 URINE DRUG SCREE N phencyclidin e NEGATI VE PCP cut off 25 ng/mL Not Available [facility] (Lab) [address] [place], [address], 03/02/2023 12:59:05 03/02/20 23 03/02/2023 URINE DRUG SCREE N marijuana POSITI VE abnormal Marij uana cut off 50 ng/mL ANY POSIT PILI RESUL TS REPOR FELICE ARE UNCON FIRME D, AND SUCH, SHOUL D BE USED FOR MEDIC AL TREAT MENT PURPO SES ONLY. Not Available [facility] (Lab) [address] [place], [address], 03/02/2023 12:59:05 03/02/20 23 03/02/2023 HEMOG LOBIN A1C HA1C 6.2 % 4.0-6. 0 high Diabe alex Goldene martin Crite madina: <5.7% Consi stent with absen ce of diabe alex 5.7-6 .4% Consi stent with incre ased risk for diabe alex (pred iabet es) >OR=6 .5% Consi stent with diabe alex REFER ENCE: Diabe alex Care 2016, 39( ppl.1 ):s13 -s22 Not Available [facility] (Lab) [address] [place], [address], 03/02/2023 14:07:54 03/02/20 23 03/02/2023 VITAM IN B12 (JO MP ) vb12 877 pg/mL 239-93 1 Not Available [facility] (Lab) [address] [place], [address], 03/02/2023 15:17:21 03/02/20 23 03/03/2023 MICRO ALBUM IN RANDO M URINE microalbumin , urine 8.6 mg/L 0.0-16 .6 Not Available [facility] (Lab) [address] [place], [address], 03/03/2023 12:32:36 09/12/20 23 09/12/2023 CBC/C OMPLE TE BLD COUNT W/DIF F white blood cells 11.2 x10'3 /uL 4.2-10 .8 high Not Available [facility] (Lab) [address] [place], [address], 09/12/2023 11:47:08 09/12/20 23 09/12/2023 CBC/C OMPLE TE BLD COUNT W/DIF F red blood cells 4.25 x10'6 /uL 3.80-5 .20 Not Available [facility] (Lab) [address] [place], [address], 09/12/2023 11:47:08 09/12/20 23 09/12/2023 CBC/C OMPLE TE BLD COUNT W/DIF F hemoglobin 13.9 g/dL 12.0-1 5.6 Not Available [facility] (Lab) [address] [place], [address], 09/12/2023 11:47:08 09/12/20 23 09/12/2023 CBC/C OMPLE TE BLD COUNT W/DIF F hematocrit 41.9 % 35.7-4 5.7 Not Available [facility] (Lab) [address] [facility] [place], [address], 09/12/2023 11:47:08 09/12/20 23 09/12/2023 CBC/C OMPLE TE BLD COUNT W/DIF F mean red cell volume 98.6 fL 82.0-9 9.0 Not Available [facility] (Lab) [address] [place], [address], 09/12/2023 11:47:08 09/12/20 23 09/12/2023 CBC/C OMPLE TE BLD COUNT W/DIF F mean red cell hemoglobin 32.7 pg 27.0-3 3.0 Not Available [facility] (Lab) [address] [place], [address], 09/12/2023 11:47:08 09/12/20 23 09/12/2023 CBC/C OMPLE TE BLD COUNT W/DIF F mean RBC HGB concentratio n 33.2 g/dL 31.0-3 6.0 Not Available [facility] (Lab) [address] [place], [address], 09/12/2023 11:47:08 09/12/20 23 09/12/2023 CBC/C OMPLE TE BLD COUNT W/DIF F red cell distribution width 12.8 % 11.8-1 5.5 Not Available [facility] (Lab) [address] [place], [address], 09/12/2023 11:47:08 09/12/20 23 09/12/2023 CBC/C OMPLE TE BLD COUNT W/DIF F platelets 295 x10'3 /uL 150-40 0 Not Available [facility] (Lab) [address] [place], [address], 09/12/2023 11:47:08 09/12/20 23 09/12/2023 CBC/C OMPLE TE BLD COUNT W/DIF F mean platelet volume 10.7 fL 9.0-12 .4 Not Available [facility] (Lab) [address] [place], [address], 09/12/2023 11:47:08 09/12/20 23 09/12/2023 CBC/C OMPLE TE BLD COUNT W/DIF F neutrophils 61.3 % 39.0-7 2.0 Not Available [facility] (Lab) [address] [place], [address], 09/12/2023 11:47:08 09/12/20 23 09/12/2023 CBC/C OMPLE TE BLD COUNT W/DIF F lymphocytes 27.8 % 16.0-4 7.0 Not Available [facility] (Lab) [address] [place], [address], 09/12/2023 11:47:08 09/12/20 23 09/12/2023 CBC/C OMPLE TE BLD COUNT W/DIF F monocytes 6.3 % 5.0-12 .0 Not Available [facility] (Lab) [address] [place], [address], 09/12/2023 11:47:08 09/12/20 23 09/12/2023 CBC/C OMPLE TE BLD COUNT W/DIF F eosinophils 3.4 % 1.0-7. 0 Not Available [facility] (Lab) [address] [place], [address], 09/12/2023 11:47:08 09/12/20 23 09/12/2023 CBC/C OMPLE TE BLD COUNT W/DIF F basophils 0.6 % 0.0-2. 0 Not Available [facility] (Lab) [address] [place], [address], 09/12/2023 11:47:08 09/12/20 23 09/12/2023 CBC/C OMPLE TE BLD COUNT W/DIF F immature granulocytes 0.6 % 0.00-0 .50 high Not Available [facility] (Lab) [address] [place], [address], 09/12/2023 11:47:08 09/12/20 23 09/12/2023 CBC/C OMPLE TE BLD COUNT W/DIF F neutrophils, absolute count 6.88 x10'3 /uL 1.5-8. 0 Not Available [facility] (Lab) [address] [place], [address], 09/12/2023 11:47:08 09/12/20 23 09/12/2023 CBC/C OMPLE TE BLD COUNT W/DIF F lymphocytes, absolute count 3.13 x10'3 /uL 1.07-3 .43 Not Available [facility] (Lab) [address] [place], [address], 09/12/2023 11:47:08 09/12/20 23 09/12/2023 CBC/C OMPLE TE BLD COUNT W/DIF F monocytes, absolute count 0.71 x10'3 /uL 0.29-0 .99 Not Available [facility] (Lab) [address] [place], [address], 09/12/2023 11:47:08 09/12/20 23 09/12/2023 CBC/C OMPLE TE BLD COUNT W/DIF F eosinophils, absolute count 0.38 x10'3 /uL 0.02-0 .53 Not Available [facility] (Lab) [address] [place], [address], 09/12/2023 11:47:08 09/12/20 23 09/12/2023 CBC/C OMPLE TE BLD COUNT W/DIF F basophils, absolute count 0.07 x10'3 /uL 0.01-0 .08 Not Available [facility] (Lab) [address] [place], [address], 09/12/2023 11:47:08 09/12/20 23 09/12/2023 CBC/C OMPLE TE BLD COUNT W/DIF F immature granulocytes ,absolute 0.07 x10'3 /uL 0.00-0 .05 high Not Available [facility] (Lab) [address] [place], [address], 09/12/2023 11:47:08 09/12/20 23 09/12/2023 CBC/C OMPLE TE BLD COUNT W/DIF F nucleated red blood cells 0.0 % -0 Not Available [facility] (Lab) [address] [place], [address], 09/12/2023 11:47:08 09/12/20 23 09/12/2023 CBC/C OMPLE TE BLD COUNT W/DIF F NRBC# 0.00 x10'3 /uL Not Available [facility] (Lab) [address] [place], [address], 09/12/2023 11:47:08 09/12/20 23 09/12/2023 COMPR EHENS PILI METAB OLIC PANEL sodium 141 mmol/ L 137-14 5 Not Available [facility] (Lab) [address] [place], [address], 09/12/2023 14:30:17 09/12/20 23 09/12/2023 COMPR EHENS PILI METAB OLIC PANEL potassium 3.7 mmol/ L 3.5-5. 1 Not Available [facility] (Lab) [address] [place], [address], 09/12/2023 14:30:17 09/12/20 23 09/12/2023 COMPR EHENS PILI METAB OLIC PANEL chloride 107 mmol/ L 98-107 Not Available [facility] (Lab) [address] [place], [address], 09/12/2023 14:30:17 09/12/20 23 09/12/2023 COMPR EHENS PILI METAB OLIC PANEL carbon dioxide 25 mmol/ L 22-30 Not Available [facility] (Lab) [address] [place], [address], 09/12/2023 14:30:17 09/12/20 23 09/12/2023 COMPR EHENS PILI METAB OLIC PANEL anion gap 12.7 mmol/ L 14-22 low Not Available [facility] (Lab) [address] [place], [address], 09/12/2023 14:30:17 09/12/20 23 09/12/2023 COMPR EHENS PILI METAB OLIC PANEL glucose 93 mg/dL 70-99 Not Available [facility] (Lab) [address] [place], [address], 09/12/2023 14:30:17 09/12/20 23 09/12/2023 COMPR EHENS PILI METAB OLIC PANEL BUN 13 mg/dL 8-19 Not Available [facility] (Lab) [address] [place], [address], 09/12/2023 14:30:17 09/12/20 23 09/12/2023 COMPR EHENS PILI METAB OLIC PANEL creatinine 1.06 mg/dL 0.66-1 .25 Not Available [facility] (Lab) [address] [place], [address], 09/12/2023 14:30:17 09/12/20 23 09/12/2023 COMPR EHENS PILI METAB OLIC PANEL GFR 52 Refer ence Range : [place] GFR Healt hy Adult : >60 mL/mi n/1.7 3 m2 Chron ic Kidne y Disea se: 15-60 mL/mi n/1.7 3 m2 Kidne y Failu re: <15/m L/min /1.73 m2 www.n iddk. nih.g ov The MDRD study equat ion has not been valid ated in child jeremie <18 years of age; pregn ant women ; the elder ly >85 years of age; or in some racia l or ethni c subgr oups, such as Hispa nics. Outsi de the valid ated alexandra eters , estim ated GFR is less accur ate, requi ring clini robert judgm ent on a case- by-ca se basis . Clini robert inter preta tion for other races and ages must be made by the clini jeimy. The MDRD study equat ion has not been valid ated for the evalu ation of serum creat inine relat ed to nutri coleen l statu s or medic ation usage . For perso ns <18 years of age, a pedia tric GFR calcu lator is avail able on the [facility] websi te: https ://luciano machado.veronica pinon.o abiodun/pr ofess ional s/kdo qi/gf r_cal culat or Not Available [facility] (Lab) [address] [place], [address], 09/12/2023 14:30:17 09/12/20 23 09/12/2023 COMPR EHENS PILI METAB OLIC PANEL alkaline phosphatase 51 U/L 38-126 Not Available [facility] (Lab) [address] [place], [address], 09/12/2023 14:30:17 09/12/20 23 09/12/2023 COMPR EHENS PILI METAB OLIC PANEL alanine aminotransfe rase 14 U/L 0-35 Not Available [facility] (Lab) [address] [place], [address], 09/12/2023 14:30:17 09/12/20 23 09/12/2023 COMPR EHENS PILI METAB OLIC PANEL aspartate aminotransfe rase 20 U/L 15-37 Not Available [facility] (Lab) [address] [place], [address], 09/12/2023 14:30:17 09/12/20 23 09/12/2023 COMPR EHENS PILI METAB OLIC PANEL bilirubin, total 0.40 mg/dL 0.20-1 .30 Not Available [facility] (Lab) [address] [place], [address], 09/12/2023 14:30:17 09/12/20 23 09/12/2023 COMPR EHENS PILI METAB OLIC PANEL calcium 9.4 mg/dL 8.4-10 .2 Not Available [facility] (Lab) [address] [place], [address], 09/12/2023 14:30:17 09/12/20 23 09/12/2023 COMPR EHENS PILI METAB OLIC PANEL total protein 6.5 g/dL 6.3-8. 2 Not Available [facility] (Lab) [address] [place], [address], 09/12/2023 14:30:17 09/12/20 23 09/12/2023 COMPR EHENS PILI METAB OLIC PANEL albumin 3.8 g/dL 3.0-4. 4 Not Available [facility] (Lab) [address] [place], [address], 09/12/2023 14:30:17 09/12/20 23 09/12/2023 COMPR EHENS PILI METAB OLIC PANEL globulin 2.7 g/dL 2.6-4. 2 Not Available [facility] (Lab) [address] [place], [address], 09/12/2023 14:30:17 09/12/20 23 09/12/2023 COMPR EHENS PILI METAB OLIC PANEL A/G ratio 1.4 ratio 1.0-2. 0 Not Available [facility] (Lab) [address] [place], [address], 09/12/2023 14:30:17 09/12/20 23 09/12/2023 LIPID PANEL cholesterol 105 mg/dL 140-19 9 low NIH MAYDA NSUS RECOM MENDA TION FOR JOSE STERO L: ADULT CHILD LOW RISK: <200 <170 BORDE RLINE : <200- 239 ----- HIGH RISK: >240 >200 Not Available [facility] (Lab) [address] [place], [address], 09/12/2023 14:30:19 09/12/20 23 09/12/2023 LIPID PANEL triglyceride s 91 mg/dL 0-150 NIH MAYDA NSUS REPOR T RECOM MENDA TION FOR TRIGL YCERI DAJA: ADULT CHILD LOW RISK: <150 ----- BODER LINE: 150-1 99 ----- HIGH RISK: >200 ----- Not Available [facility] (Lab) [address] [place], [address], 09/12/2023 14:30:19 09/12/20 23 09/12/2023 LIPID PANEL HDL cholesterol 33 mg/dL 40- low Not Available [facility] (Lab) [address] [place], [address], 09/12/2023 14:30:19 09/12/20 23 09/12/2023 LIPID PANEL LDL cholesterol, calculated 54 mg/dL 0-130 NIH MAYDA NSUS REPOR T RECOM MENDA TIONS FOR LDL: ADULT CHILD LOW RISK <130 <110 (OPTI MAL LDL) <100 ----- BORDE RLINE : 130-1 59 ----- HIGH RISK: >160 >130 A TRIGL YCERI DE RESUL T >400 INVAL IDATE S THE CALCU LATIO N FOR LDL FRACT IONAT ION - THE LDL RESUL T WILL NOT BE REPOR FELICE. Not Available [facility] (Lab) [address] [place], [address], 09/12/2023 14:30:19 09/12/20 23 09/12/2023 MAGNE SIUM magnesium 1.2 mg/dL 1.6-2. 3 low Not Available [facility] (Lab) [address] [place], [address], 09/12/2023 14:30:21 09/12/20 23 09/12/2023 VITAM IN B12 (JO MP ) vb12 665 pg/mL 239-93 1 Not Available [facility] (Lab) [address] [place], [address], 09/12/2023 15:26:12 09/12/20 23 09/12/2023 HEMOG LOBIN A1C HA1C 5.5 % 4.0-6. 0 Diabe alex Scree martin Crite madina: <5.7% Consi stent with absen ce of diabe alex 5.7-6 .4% Consi stent with incre ased risk for diabe alex (pred iabet es) >OR=6 .5% Consi stent with diabe alex REFER ENCE: Diabe alex Care 2016, 39(Kelley ppl.1 ):s13 -s22 Not Available [facility] (Lab) [address] [place], [address], 09/12/2023 20:37:26 11/09/19 24 11/09/2023 MAGNE SIUM magnesium 2.0 mg/dL 1.6-2. 3 Not Available [facility] (Lab) [address] [place], [address], 11/09/2023 15:56:13 02/29/20 24 02/29/2024 CBC/C OMPLE TE BLD COUNT W/DIF F white blood cells 9.9 x10'3 /uL 4.2-10 .8 Not Available [facility] (Lab) [address] [place], [address], 02/29/2024 12:24:17 02/29/20 24 02/29/2024 CBC/C OMPLE TE BLD COUNT W/DIF F red blood cells 4.12 x10'6 /uL 3.80-5 .20 Not Available [facility] (Lab) [address] [place], [address], 02/29/2024 12:24:17 02/29/20 24 02/29/2024 CBC/C OMPLE TE BLD COUNT W/DIF F hemoglobin 13.1 g/dL 12.0-1 5.6 Not Available [facility] (Lab) [address] [place], [address], 02/29/2024 12:24:17 02/29/20 24 02/29/2024 CBC/C OMPLE TE BLD COUNT W/DIF F hematocrit 39.7 % 35.7-4 5.7 Not Available [facility] (Lab) [address] [place], [address], 02/29/2024 12:24:17 02/29/20 24 02/29/2024 CBC/C OMPLE TE BLD COUNT W/DIF F mean red cell volume 96.4 fL 82.0-9 9.0 Not Available [facility] (Lab) [address] [place], [address], 02/29/2024 12:24:17 02/29/20 24 02/29/2024 CBC/C OMPLE TE BLD COUNT W/DIF F mean red cell hemoglobin 31.8 pg 27.0-3 3.0 Not Available [facility] (Lab) [address] [place], [address], 02/29/2024 12:24:17 02/29/20 24 02/29/2024 CBC/C OMPLE TE BLD COUNT W/DIF F mean RBC HGB concentratio n 33.0 g/dL 31.0-3 6.0 Not Available [facility] (Lab) [address] [place], [address], 02/29/2024 12:24:17 02/29/20 24 02/29/2024 CBC/C OMPLE TE BLD COUNT W/DIF F red cell distribution width 12.8 % 11.8-1 5.5 Not Available [facility] (Lab) [address] [place], [address], 02/29/2024 12:24:17 02/29/20 24 02/29/2024 CBC/C OMPLE TE BLD COUNT W/DIF F platelets 315 x10'3 /uL 150-40 0 Not Available [facility] (Lab) [address] [place], [address], 02/29/2024 12:24:17 02/29/20 24 02/29/2024 CBC/C OMPLE TE BLD COUNT W/DIF F mean platelet volume 11.1 fL 9.0-12 .4 Not Available [facility] (Lab) [address] [place], [address], 02/29/2024 12:24:17 02/29/20 24 02/29/2024 CBC/C OMPLE TE BLD COUNT W/DIF F neutrophils 56.3 % 39.0-7 2.0 Not Available [facility] (Lab) [address] [place], [address], 02/29/2024 12:24:17 02/29/20 24 02/29/2024 CBC/C OMPLE TE BLD COUNT W/DIF F lymphocytes 31.1 % 16.0-4 7.0 Not Available [facility] (Lab) [address] [place], [address], 02/29/2024 12:24:17 02/29/20 24 02/29/2024 CBC/C OMPLE TE BLD COUNT W/DIF F monocytes 7.4 % 5.0-12 .0 Not Available [facility] (Lab) [address] [place], [address], 02/29/2024 12:24:17 02/29/20 24 02/29/2024 CBC/C OMPLE TE BLD COUNT W/DIF F eosinophils 4.0 % 1.0-7. 0 Not Available [facility] (Lab) [address] [place], [address], 02/29/2024 12:24:17 02/29/20 24 02/29/2024 CBC/C OMPLE TE BLD COUNT W/DIF F basophils 0.7 % 0.0-2. 0 Not Available [facility] (Lab) [address] [place], [address], 02/29/2024 12:24:17 02/29/20 24 02/29/2024 CBC/C OMPLE TE BLD COUNT W/DIF F immature granulocytes 0.5 % 0.00-0 .50 Not Available [facility] (Lab) [address] [place], [address], 02/29/2024 12:24:17 02/29/20 24 02/29/2024 CBC/C OMPLE TE BLD COUNT W/DIF F neutrophils, absolute count 5.59 x10'3 /uL 1.5-8. 0 Not Available [facility] (Lab) [address] [place], [address], 02/29/2024 12:24:17 02/29/20 24 02/29/2024 CBC/C OMPLE TE BLD COUNT W/DIF F lymphocytes, absolute count 3.09 x10'3 /uL 1.07-3 .43 Not Available [facility] (Lab) [address] [place], [address], 02/29/2024 12:24:17 02/29/20 24 02/29/2024 CBC/C OMPLE TE BLD COUNT W/DIF F monocytes, absolute count 0.73 x10'3 /uL 0.29-0 .99 Not Available [facility] (Lab) [address] [place], [address], 02/29/2024 12:24:17 02/29/20 24 02/29/2024 CBC/C OMPLE TE BLD COUNT W/DIF F eosinophils, absolute count 0.40 x10'3 /uL 0.02-0 .53 Not Available [facility] (Lab) [address] [place], [address], 02/29/2024 12:24:17 02/29/20 24 02/29/2024 CBC/C OMPLE TE BLD COUNT W/DIF F basophils, absolute count 0.07 x10'3 /uL 0.01-0 .08 Not Available [facility] (Lab) [address] [place], [address], 02/29/2024 12:24:17 02/29/20 24 02/29/2024 CBC/C OMPLE TE BLD COUNT W/DIF F immature granulocytes ,absolute 0.05 x10'3 /uL 0.00-0 .05 Not Available [facility] (Lab) [address] [place], [address], 02/29/2024 12:24:17 02/29/20 24 02/29/2024 CBC/C OMPLE TE BLD COUNT W/DIF F nucleated red blood cells 0.0 % -0 Not Available [facility] (Lab) [address] [place], [address], 02/29/2024 12:24:17 02/29/20 24 02/29/2024 CBC/C OMPLE TE BLD COUNT W/DIF F NRBC# 0.00 x10'3 /uL Not Available [facility] (Lab) [address] [place], [address], 02/29/2024 12:24:17 02/29/20 24 02/29/2024 URINE DRUG SCREE N amphetamines NEGATI VE Amphe tamin e cut off 500 ng/mL Not Available [facility] (Lab) [address] [place], [address], 02/29/2024 12:40:38 02/29/20 24 02/29/2024 URINE DRUG SCREE N barbiturates NEGATI VE Beulah turat e cut off 200 ng/mL Not Available [facility] (Lab) [address] [place], [address], 02/29/2024 12:40:38 02/29/20 24 02/29/2024 URINE DRUG SCREE N benzodiazepi nia NEGATI VE Benzo diaze pine cut off 200 ng/mL Not Available [facility] (Lab) [address] [place], [address], 02/29/2024 12:40:38 02/29/20 24 02/29/2024 URINE DRUG SCREE N cocaine NEGATI VE Cocai ne metab olite cut off 150 ng/mL Not Available [facility] (Lab) [address] [place], [address], 02/29/2024 12:40:38 02/29/20 24 02/29/2024 URINE DRUG SCREE N fentanyl NEGATI VE Fenta nyl cut off 1.0 ng/mL Not Available [facility] (Lab) [address] [place], [address], 02/29/2024 12:40:38 02/29/20 24 02/29/2024 URINE DRUG SCREE N methadone NEGATI VE Metha done cutof f 300 ng/mL . Not Available [facility] (Lab) [address] [place], [address], 02/29/2024 12:40:38 02/29/20 24 02/29/2024 URINE DRUG SCREE N opiates POSITI VE abnormal Opiat e cut off 300 ng/mL Not Available [facility] (Lab) [address] [place], [address], 02/29/2024 12:40:38 02/29/20 24 02/29/2024 URINE DRUG SCREE N oxycodone NEGATI VE Oxyco done cut off 100 ng/mL Not Available [facility] (Lab) [address] [place], [address], 02/29/2024 12:40:38 02/29/20 24 02/29/2024 URINE DRUG SCREE N phencyclidin e NEGATI VE PCP cut off 25 ng/mL Not Available [facility] (Lab) [address] [place], [address], 02/29/2024 12:40:38 02/29/20 24 02/29/2024 URINE DRUG SCREE N marijuana POSITI VE abnormal Marij uana cut off 50 ng/mL ANY POSIT PILI RESUL TS REPOR FELICE ARE UNCON FIRME D, AND SUCH, SHOUL D BE USED FOR MEDIC AL TREAT MENT PURPO SES ONLY. Not Available [facility] (Lab) [address] [place], [address], 02/29/2024 12:40:38 02/29/20 24 02/29/2024 MICRO ALBUM IN RANDO M URINE microalbumin , urine 33.5 mg/L 0.0-16 .6 high Not Available [facility] (Lab) [address] [place], [address], 02/29/2024 12:41:03 02/29/2002/29/2024 LIPID PANEL cholesterol 105 mg/dL 140-19 9 low NIH MAYDA NSUS RECOM MENDA TION FOR JOSE STERO L: ADULT CHILD LOW RISK: <200 <170 BORDE RLINE : <200- 239 ----- HIGH RISK: >240 >200 Not Available [facility] (Lab) [address] [place], [address], 02/29/2024 13:07:46 02/29/20 24 02/29/2024 LIPID PANEL triglyceride s 130 mg/dL 0-150 NIH MAYDA NSUS REPOR T RECOM MENDA TION FOR TRIGL YCERI DAJA: ADULT CHILD LOW RISK: <150 ----- BODER LINE: 150-1 99 ----- HIGH RISK: >200 ----- Not Available [facility] (Lab) [address] [place], [address], 02/29/2024 13:07:46 02/29/20 24 02/29/2024 LIPID PANEL HDL cholesterol 40 mg/dL 40- Not Available [facility] (Lab) [address] [place], [address], 02/29/2024 13:07:46 02/29/20 24 02/29/2024 LIPID PANEL LDL cholesterol, calculated 39 mg/dL 0-130 NIH MAYDA NSUS REPOR T RECOM MENDA TIONS FOR LDL: ADULT CHILD LOW RISK <130 <110 (OPTI MAL LDL) <100 ----- BORDE RLINE : 130-1 59 ----- HIGH RISK: >160 >130 A TRIGL YCERI DE RESUL T >400 INVAL IDATE S THE CALCU LATIO N FOR LDL FRACT IONAT ION - THE LDL RESUL T WILL NOT BE REPOR FELICE. Not Available [facility] (Lab) [address] [place], [address], 02/29/2024 13:07:46 02/29/20 24 02/29/2024 COMPR EHENS PILI METAB OLIC PANEL sodium 137 mmol/ L 137-14 5 Not Available [facility] (Lab) [address] [place], [address], 02/29/2024 13:08:03 02/29/20 24 02/29/2024 COMPR EHENS PILI METAB OLIC PANEL potassium 4.3 mmol/ L 3.5-5. 1 Not Available [facility] (Lab) [address] [place], [address], 02/29/2024 13:08:03 02/29/20 24 02/29/2024 COMPR EHENS PILI METAB OLIC PANEL chloride 108 mmol/ L 98-107 high Not Available [facility] (Lab) [address] [place], [address], 02/29/2024 13:08:03 02/29/20 24 02/29/2024 COMPR EHENS PILI METAB OLIC PANEL carbon dioxide 24 mmol/ L 22-30 Not Available [facility] (Lab) [address] [place], [address], 02/29/2024 13:08:03 02/29/20 24 02/29/2024 COMPR EHENS PILI METAB OLIC PANEL anion gap 9.3 mmol/ L 14-22 low Not Available [facility] (Lab) [address] [place], [address], 02/29/2024 13:08:03 02/29/20 24 02/29/2024 COMPR EHENS PILI METAB OLIC PANEL glucose 107 mg/dL 70-99 high Not Available [facility] (Lab) [address] [place], [address], 02/29/2024 13:08:03 02/29/20 24 02/29/2024 COMPR EHENS PILI METAB OLIC PANEL BUN 20 mg/dL 8-19 high Not Available [facility] (Lab) [address] [place], [address], 02/29/2024 13:08:03 02/29/20 24 02/29/2024 COMPR EHENS PILI METAB OLIC PANEL creatinine 1.32 mg/dL 0.66-1 .25 high Not Available [facility] (Lab) [address] [place], [address], 02/29/2024 13:08:03 02/29/20 24 02/29/2024 COMPR EHENS PILI METAB OLIC PANEL GFR 40 Refer ence Range : [place] GFR Healt hy Adult : >60 mL/mi n/1.7 3 m2 Chron ic Kidne y Disea se: 15-60 mL/mi n/1.7 3 m2 Kidne y Failu re: <15/m L/min /1.73 m2 www.n iddk. nih.g ov The MDRD study equat ion has not been valid ated in child jeremie <18 years of age; pregn ant women ; the elder ly >85 years of age; or in some racia l or ethni c subgr oups, such as Hispa nics. Outsi de the valid ated alexandra eters , estim ated GFR is less accur ate, requi ring clini robert judgm ent on a case- by-ca se basis . Clini robert inter preta tion for other races and ages must be made by the clini jeimy. The MDRD study equat ion has not been valid ated for the evalu ation of serum creat inine relat ed to nutri coleen l statu s or medic ation usage . For perso ns <18 years of age, a pedia tric GFR calcu lator is avail able on the [facility] websi te: https :[email or web address] [email or web address] [email or web address] qi/gf r_cal culat or Not Available [facility] (Lab) [address] [place], [address], 02/29/2024 13:08:03 02/29/20 24 02/29/2024 COMPR EHENS PILI METAB OLIC PANEL alkaline phosphatase 58 U/L 38-126 Not Available [facility] (Lab) [address] [place], [address], 02/29/2024 13:08:03 02/29/20 24 02/29/2024 COMPR EHENS PILI METAB OLIC PANEL alanine aminotransfe rase 17 U/L 0-35 Not Available [facility] (Lab) [address] [place], [address], 02/29/2024 13:08:03 02/29/20 24 02/29/2024 COMPR EHENS PILI METAB OLIC PANEL aspartate aminotransfe rase 24 U/L 15-37 Not Available [facility] (Lab) [address] [place], [address], 02/29/2024 13:08:03 02/29/20 24 02/29/2024 COMPR EHENS PILI METAB OLIC PANEL bilirubin, total 0.50 mg/dL 0.20-1 .30 Not Available [facility] (Lab) [address] [place], [address], 02/29/2024 13:08:03 02/29/20 24 02/29/2024 COMPR EHENS PILI METAB OLIC PANEL calcium 9.6 mg/dL 8.4-10 .2 Not Available [facility] (Lab) [address] [place], [address], 02/29/2024 13:08:03 02/29/20 24 02/29/2024 COMPR EHENS PILI METAB OLIC PANEL total protein 6.2 g/dL 6.3-8. 2 low Not Available [facility] (Lab) [address] [place], [address], 02/29/2024 13:08:03 02/29/20 24 02/29/2024 COMPR EHENS PILI METAB OLIC PANEL albumin 3.9 g/dL 3.0-4. 4 Not Available [facility] (Lab) [address] [place], [address], 02/29/2024 13:08:03 02/29/20 24 02/29/2024 COMPR EHENS PILI METAB OLIC PANEL globulin 2.3 g/dL 2.6-4. 2 low Not Available [facility] (Lab) [address] [place], [address], 02/29/2024 13:08:03 02/29/20 24 02/29/2024 COMPR EHENS PILI METAB OLIC PANEL A/G ratio 1.7 ratio 1.0-2. 0 Not Available [facility] (Lab) [address] [place], [address], 02/29/2024 13:08:03 02/29/20 24 02/29/2024 MAGNE SIUM magnesium 1.5 mg/dL 1.6-2. 3 low Not Available [facility] (Lab) [address] [place], [address], 02/29/2024 13:08:07 02/29/20 24 02/29/2024 T4 FREE free T4 1.18 NG/dL 0.78-2 .19 Not Available [facility] (Lab) [address] [place], [address], 02/29/2024 13:38:37 02/29/20 24 02/29/2024 TSH thyroid-stim ulating hormone 1.590 uIU/m L 0.465- 4.680 Not Available [facility] (Lab) [address] [place], [address], 02/29/2024 13:39:12 02/29/20 24 02/29/2024 VITAM IN B12 (JO MP ) vb12 352 pg/mL 239-93 1 Not Available [facility] (Lab) [address] [place], [address], 02/29/2024 14:38:15 02/29/20 24 02/29/2024 HEMOG LOBIN A1C HA1C 5.7 % 4.0-6. 0 Diabe alex Scree martin Crite madina: <5.7% Consi stent with absen ce of diabe alex 5.7-6 .4% Consi stent with incre ased risk for diabe alex (pred iabet es) >OR=6 .5% Consi stent with diabe alex REFER ENCE: Diabe alex Care 2016, 39(Kelley ppl.1 ):s13 -s22 Not Available [facility] (Lab) [address], [place], [address], 02/29/2024 16:15:03 03/02/20 23 03/02/2023 CT, chest , w/o contr ast [facility] [address], [place] [address] Patien t Name: SAGE MACIAS Access ion #: [id number] Sex: F : 1954 9 Locati on: RAD Attend ing Physic abiel: KALLIE TELLO CE Orderi ng Physic abiel: KALLIE TELLO CE Exam Date: 03/02/20 8:57 AM Exam Name: CT CHEST WO Admitt ing Diagno sis(es ): RADIOL OGY REPORT - FINAL EXAM: CT CHEST WO HISTOR Y: 68-yea r-old female smoker with pulmon fadumo nodule , follow -up. COMPAR AARON: None availa ble. TECHNI QUE: Helica l CT images of the chest were perfor med withou t contra st. Sagitt al and ochoa l reform atted images were obtain ed. This CT exam was perfor med using one or more of the follow ing dose reduct ion techni ques: Automa felice exposu re contro l, adjust ment of the mA and/or kV accord ing to patien t size, or use of iterat pili recons tructi on techni que. FINDIN GS: There are faint irregu lar opacit ies in both lungs, predom inatin g in the upper lobes. There is a 5.5 mm left lower lobe noncal cified pulmon fadumo nodule Page 1 of 2 [facility] [place] Jessica t Name: SAGE MACIAS Access ion #: [id number] Sex: F : 1954 9 Exam Date: 03/02/20 8:57 AM Exam Name: CT CHEST WO Admitt ing Diagno sis(es ): (image 60, series 201). There is a 6 mm ground -glass nodule in the right upper lobe (image 24, series 201). No pneumo thorax , pulmon fadumo edema, pleura l effusi ons, or consol idativ e infilt rates. 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 No suspic ious medias tinal or axilla ry adenop athy. The heart is not enlarg ed. There are ochoa ry artery calcif icatio ns. No thorac ic aortic aneury sm. No fractu res are identi fied about the bony thorax . There is a left upper quadra nt splenu le. There is mild thorac ic degene rative disc diseas e. IMPRES RADHA: 1. 5.5 mm left lower lobe noncal cified pulmon fadumo nodule and 6 mm right upper lobe ground -glass nodule . Recomm end follow -up accord ing to [facility] societ y guidel aruna. 2. Faint irregu lar opacit ies scatte red throug hout both lungs, predom inatin g in the upper lobes, likely repres enting scarri ng, less likely residu al infilt rates from recent pneumo delta. Compar aaron with any previo us CT scan of the chest would be helpfu l in making this distin ction. 3. 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 4. Ochoa ry artery calcif icatio ns. Create d and electr onical ly signed by: Chema graff MD Signed Date: 03/02/20 10:23 AM (CT) Dictat ed by: Chema graff MD (CT) (CT) Page 2 of 2 [email or web address] [facility] (Imaging) [address] [place], [address], 03/02/2023 12:47:56 06/23/20 23 MAMMO , scree martin, digit al, bilat eral [facility] [address] [place] [address] Patien t Name: SAGE MACIAS Access ion #: [id number] Sex: F : 1954 1 Dictat ed By: Abigail Jones Attend ing Physic abiel: KALLIE TELLO CE Orderi ng Physic abiel: KALLIE TELLO CE Exam Date: 2022 09:51 AM Exam Name: MG CASSI L SUNITHA BILAT SCREEN Admitt ing Diagno sis(es ): CLINIC AL HISTOR Y: Screen ing COMPAR AARON STUDY: 021; 020 TECHNI QUE: Using a full field digita l 2D mammog demond unit CC and MLO views of both breast s are perfor med. FINDIN GS: BREAST COMPOS ITION: There are scatte red areas of fibrog landul ar densit y in the bilate ral breast s. No suspic ious masses , damion ectura l distor tion, asymme tries or suspic ious calcif icatio ns in both breast s. There is a biopsy marker clip in the left breast . Stable calcif icatio ns in the bilate ral breast . IMPRES RADHA: No eviden ce of malign carol. Recomm end annual mammog seth. BIRADS : 2 - Benign Electr onical ly Signed by: Abigail Jones at 2022 11:08: 39 AM Page 1 [email or web address] [facility] (Imaging) [address] [place], [address], 06/23/2023 12:40:00 09/12/20 23 09/12/2023 CT, chest , w/o contr ast [facility] [address] [address] Patien t Name: SAGE MACIAS ion #: [id number] Sex: F : 1954 3 Dictat ed By: Abigail Jones Attend ing Physic abiel: KALLIE TELLO CE Orderi ng Physic abiel: KALLIE TELLO Exam Date: 2022 09:48 AM Exam Name: CT CHEST WO Admitt ing Diagno sis(es ): Proced ure: CT CHEST WO Reason for study/ Clinic al Histor y: Evalua te pulmon fadumo nodule s. Compar aaron Study: 03/02/20 Exam Date: 2022 9:48 AM STONE TRIMMER TECHNI QUE: Multid etecto r CT of the chest was perfor med from the lung apices to the upper abdome n withou t the use of intrav enous contra ct. Axial, ochoa l and sagitt al multip lanar reform ats were perfor med. RADIAT ION DOSE: CTDI volume is 0.085 mGy. Dose-l ength produc t is 352.4 mGy*cm The dose indica tors for CT are the volume Comput ed Tomogr aphy (CT) Dose Index (CTDIv ol) and the Dose Length Produc t (DLP), and are measur ed in units of mGy and mGy-cm , respec tively . These indica tors are not patien t dose, but values genera felice from the CT scanne r acquis ition factor s. The report includ es radiat ion exposu re data for exposu res receiv ed during this examin ation. FINDIN GS: Lower neck: Normal thyroi d. Lungs: Stable nonspe cific pulmon fadumo micron odules and ground glass opacit ies measur ing up to 9 mm in the left lung. No new suspic ious pulmon fadumo nodule s. Pulmon fadumo emphys corrina. Heart/ Vascul ar Struct ures: Normal heart size. No perica rdial effusi on. Mild athero sclero tic vascul ar diseas e of the thorac ic aorta. Page 1 [facility] [address] [place] [address] [phone] Patien t Name: SAGE MACIAS ion #: [id number] Sex: F : 1954 3 Dictat ed By: Abigail Jones Attend ing Physic abiel: KHADRA HILLMAN Physic abiel: KALLIE TELLO Exam Date: 2022 09:48 AM Exam Name: CT CHEST WO Admitt ing Diagno sis(es ): Lymph Nodes: No adenop athy Pleura : No pleura l effusi on or signif icant pneumo thorax . Muscul oskele lary: No acute osseou s abnorm ality. Soft tissue s: Normal . Upper abdome n: Limite d portio ns of the upper abdome n are unrema rkable . Mild athero sclero tic vascul ar diseas e of the abdomi nal aorta and its branch es. IMPRES RADHA: Stable nonspe cific pulmon fadumo micron odules and ground glass opacit ies measur ing up to 9 mm in the left lung. Differ ential consid eratio ns includ e inflam matory , infect ious or malign carol. Recomm end correl ation with PET/CT . Radiat ion optimi zation : All CT scans at this facili ty use at least one of these dose optimi zation techni ques: automa eflice exposu re contro l? mA and/or kV adjust ment per patien t size (inclu daja target ed exams where dose is matche d to clinic al indica tion)? or iterat pili recons tructi on. Electr onical ly Signed by: Abigail Jones at 2022 11:16: 17 AM Page 2 [email or web address] [facility] (Imaging) [address] [place], [address], 09/12/2023 13:33:07 09/12/20 23 09/12/2023 DEXA, axial skele ton [facility] [place] [address] [id number] Patien t Name: SAGE MACIAS Access ion #: [id number] Sex: F : 1954 3 Dictat ed By: Abigail Jones Attend ing Physic abiel: KALLIE TELLO Orderi Physic abiel: KALLIE TELLO CE Exam Date: 2022 09:49 AM Exam Name: XR DEXA-H IPS PELVIS SPINE Admitt ing Diagno sis(es ): INDICA TION: Osteop orosis , postme nopaus al DEXA SCAN: BONE DENSIT Y REPORT : Bone minera l densit y (BMD) AP SPINE (L1-L4 ) BMD: 1.17 (Grams /cm2). T Score: -0.2 LEFT HIP TOTAL BMD: 1.05 (Grams /cm2). T Score: 0.4 RT HIP TOTAL BMD: 1.02 (Grams /cm2). T Score: 0.1 IMPRES RADHA: 1. Normal bone minera l densit y of the lumbar spine and bilate ral hips. ------ ------ ------ ------ ------ ------ ------ ------ ----- *FRAX versio n 3.08. Fractu re probab ility calcul ated for an untrea felice patien t. Fractu re probab ility may be lower if the patien t has receiv ed treatm ent. T-scor e: compar aaron by sandra rd deviat ion (SD) to a young adult popula tion, matche d for sex and ethnic ity (used for postme nopaus al women and men >50 years) and classi fied by WHO criter ia. ?-1.0: normal <-1.0 to >-2.5: osteop enia ?-2.5: osteop orosis ?-2.5 plus fragil ity fractu re: severe osteop orosis Z-scor e: compar ed by SD to an age, sex, and ethnic ity popula tion (used for premen opausa l women, men <50 years, and childr en instea d of T-scor e WHO criter ia 4) Page 1 [facility] [address] [address] Patien t Name: SAGE MACIAS Access ion #: [id number] Sex: F : 1954 3 Dictat ed By: Abigail Jones Attend ing Physic abiel: [facility] Physic abiel: KALLIE TELLO Exam Date: 2022 09:49 AM Exam Name: XR DEXA-H IPS PELVIS SPINE Admitt ing Diagno sis(es ): <-2.0: below expect ed range/ low bone densit y for age, and a cause should be sought Electr onical ly Signed by: Abigail Jones at 2022 11:18: 21 AM Page [address] (Imaging) [address], [place], [address], 09/12/2023 13:33:27 10/26/19 24 10/25/2023 PET-C T, skull base to mid-t high scan No observ ation record ed. [address], [place], [address], 10/26/2023 16:20:44 10/10/19 25 10/09/2024 scree martin breas t nichol, bilat [facility] [address] [place] [address] [phone] Patijessica t Name: SAGE MACIAS Access ion #: [id number] Sex: F : 1954 8 Locati on: RAD Attend ing Physic abiel: KALLIE TELLO CE Orderi ng Physic abiel: KALLIE TELLO CE Exam Date: 025 8:13 AM Exam Name: MG SCRN BREAST NICHOL BILAT Admitt ing Diagno sis(es ): MAMMOG DEMOND REPORT - FINAL EXAM: MG SCRN BREAST NICHOL BILAT HISTOR Y: screen ing mammog seth 69-yea r-old female with no curren t breast compla ints. The patien t has a histor y of left breast benign biopsy in 1979. The patien t has a histor y of left breast benign cyst aspira tion in 2014. COMPAR AARON: 2022, 2020 TECHNI QUE: Bilate ral CC and MLO views of the breast s were perfor med. Digita l Mammog demond images were obtain ed. CAD (compu ter assist ed detect ion) was utiliz ed. 3D Digita l breast tomosy nthesi s was perfor med and used in the interp retati on of images . FINDIN GS: There are scatte red areas of fibrog landul ar densit y. Page 1 of 2 [facility] Jessica zaidi Name: SAGE MACIAS Access ion #: [id number] Sex: F : 1954 8 Exam Date: 8:13 AM Exam Name: MG SCRN BREAST NICHOL BILAT Admitt ing Diagno sis(es ): No new masses , develo ping asymme tries, suspic ious calcif icatio ns, or damion ectura l distor tion are seen. There is a biopsy marker in the left mid breast . IMPRES RADHA: BIRADS 2: Assess ment comple te. Benign findin gs. Recomm end annual screen ing mammog demond. Accord ing to the [employer], yearly mammog guillermo are recomm ended starti ng at age 40 and contin uing as long as the woman is in good health . Clinic al Breast Exam should be part of the period health exam-a bout every 3 years for women in their 20s and 30s and every year for women 40 and over. Breast self-e xam is an option for women in their 20s. Any breast change noted on the breast self-e xam she would be report ed prompt ly to the jessica zaidi's [facility] er. A negati ve mammog demond report should not discou rage follow -up or biopsy of a clinic ally signif icant findin g and/or abnorm ality. Dense breast tissue may obscur e small neopla sms. This jessica zaidi has been entere d into a mammog demond remind er system with a target date for her next mammog seth. Create d and electr onical ly signed by: Chema graff MD Signed Date: 12:47 PM (CT) Dictat ed by: Chema graff MD DD: 12:47 PM (CT) DT: 12:47 PM (CT) Page [address] (Imaging) [address] [place] [address], [address], 10/10/2024 14:02:54 10/30/19 25 10/30/2024 LDCT, chest , for lung tomce valentin salazar [facility] [place] [address] [facility] [address], [place] [address] Patien t Name: SAGE MACIAS ion #: [id number] Sex: F : 1954 3 Dictat ed By: Chema Luis e Attend ing Physic abiel: KALLIE TELLO CE Orderi ng Physic abiel: KALLIE TELLO CE Exam Date: 2024 09:37 AM Exam Name: CT LOW DOSE CNCR SCREEN ING Admitt ing Diagno sis(es ): EXAM: CT LOW DOSE CNCR SCREEN ING HISTOR Y: nicoti ne depend ence COMPAR AARON: CT CHEST WO on DOS: , CT CHEST WO on DOS: 03/02/23 TECHNI QUE: Noncon trast helica l CT images of the chest were perfor med utiliz ing low dose lung cancer screen ing protoc ol. Sagitt al and ochoa l reform atted images were obtain ed. This CT exam was perfor med using one or more of the follow ing dose reduct ion techni ques: Automa felice exposu re contro l, adjust ment of the mA and/or kV accord ing to patien t size, or use of iterat pili recons tructi on techni que. Radiat ion Dose: CT Dose: CTDI volume is 1.4 mGy. Dose-l ength produc t is 55.9 mGy*cm FINDIN GS: There is a left lower lobe irregu lar cavita ry noncal cified pulmon fadumo nodule measur ing up to 13 mm axiall y (image 169, series 205), previo usly measur ing 9 mm. No consol idativ e infilt rates, pneumo thorax , pleura l effusi ons, or pulmon fadumo edema. There are stable scarri ng and patchy ground -glass opacit ies in the bilate ral lungs, greate st in the upper lobes. No suspic ious medias tinal or axilla ry adenop athy. The heart is not enlarg ed. There are ochoa ry artery calcif icatio ns. There is a trace perica rdial effusi on. No thorac ic aortic aneury sm. There are multip le left upper quadra nt splenu les. IMPRES RADHA: 1. 13 mm left lower lobe cavita ry noncal cified pulmon fadumo nodule is larger than that seen on the previo us chest CT. Again, recomm end follow -up PET-CT Page 1 [facility] [address] [place] [address] Patien t Name: SAGE MACIAS Access ion #: [id number] Sex: F : 1954 3 Dictat ed By: Chema graff Attend ing Physic abiel: KHADRA HILLMAN Orderi ng Physic abiel: KALLIE TELLO Exam Date: 2024 09:37 AM Exam Name: CT LOW DOSE CNCR SCREEN ING Admitt ing Diagno sis(es ): for better charac teriza tion. 2. Bilate ral upper lobe scarri ng and ground -glass opacit ies are re-nery ntifie d. 3. Mild-t o-mode rate centri lobula r emphys corrina. 4. Ochoa ry artery diseas e. Lung-R ADS 4B. Suspic ious. Recomm end follow -up PET-CT . Lung-R ADS v2022. Electr onical ly Signed by: Chema graff at 2024 16:09: 10 PM Page 2 [email or web address] [facility] (Imaging) [address] [place], [address], 10/30/2024 17:19:58 Result Notes None recorded. Problems Name Problem SNOMED Code Status Onset Date Resolution Date Notes Provider Name and Address Organization Details Recorded Time Chronic hepatitis C 494015940 Active 2020 Not Available [facility] 3 12:52:34 Gastroesop hageal reflux disease 726214855 Active Not Available [facility] 3 12:52:34 Pure hyperchole sterolemia 828025316 Active Not Available [facility] 3 12:52:34 Enthesopat hy of hip region 43347985 Active Not Available [facility] 3 12:52:35 Type 2 diabetes mellitus without complicati on 460326854 Active 2017 Not Available [facility] 3 12:52:35 Restless legs 60622846 Active Not Available [facility] 3 12:52:35 Vitamin D deficiency 07547074 Active 2016 Not Available [facility] 3 12:52:35 Nicotine dependence 16165095 Active 2021 Not Available [facility] 3 12:52:35 Essential hypertensi on 64926770 Active 2018 Not Available [facility] 3 12:52:35 Diabetes mellitus [id number] Completed Not Available [facility] 3 12:52:35 Iron deficiency anemia 43222440 Active Not Available [facility] 3 12:52:35 Urgent desire to urinate [id number] Active 2022 Cheri Do CMA null, [facility] 3 14:47:47 Solitary nodule of lung 486460387 Active 2022 Mary Jack null, [facility] 3 15:02:56 Hypomagnes emia 806671689 Active 2023 Dorian Tello MD [address], [address], [place], [address] , [facility] 4 17:00:01 Nodule of lung 201065227 Active 2023 Mary Jack null, [facility] 4 14:46:57 Smoker 17790985 Active 2024 Montana Briscoe MD [address], [address], [place], [address] , [facility] 5 11:10:31 Notes:Medical History: Postn hany drip Eosinophils 440/uL IgE 16 IU/mL Hypogammaglobulinemia (IgG2) Marijuana use Nicotine use AAT PiMM 148 mg% 13 mm LLL pulm nodule Hypertension Hyperlipidemia T2DM with microalbuminuria Esophagogastritis Chronic Hepatitis C Diverticulosis CKD Hypomagnesemia RLS Vit D deficiency Thoracic DDD Procedure History: Left breast benign biopsies 1981, 2019 Left elbow surgery 2004 Left wrist ganglion cyst excision 2008 COLE-RSO 2009 Right rotator cuff and biceps surgery 2021 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 Procedures Surgical History Date Name Laterality Status Provider Name and Address Organization Details Recorded Time 08/22/20 Medicare Wellness CPT Code, subsequent completed Linda Jimenez RN [place] - [place] [employer] 08/22/2023 16:42:03 procedure on hand completed Not Available [facility] 11/24/2022 12:49:59 Hysterectomy completed Not Available [facility] 11/24/2022 12:49:59 Imaging Results Imaging Date Name Status LastModified by Organiz ation Details LastModified Time 03/02/2023 CT, chest, w/o contrast completed [address] (Imaging) [address] [place], [address], 03/02/2023 12:47:56 06/23/2023 MAMMO, screening, digital, bilateral completed [address] (Imaging) [address] [place], [address], 06/23/2023 12:40:00 09/12/2023 CT, chest, w/o contrast completed [address] (Imaging) [address] [place], [address], 09/12/2023 13:33:07 09/12/2023 DEXA, axial skeleton completed [address] (Imaging) [address] [place], [address], 09/12/2023 13:33:27 10/25/2023 PET-CT, skull base to mid-thigh scan completed [address] [place] [address], [address], 10/26/2023 16:20:44 10/09/2024 screening breast nichol, bilat completed [email or web address] [facility] (Imaging) [address] [place], [address], 10/10/2024 14:02:54 10/30/2024 LDCT, chest, for lung cancer screening completed [email or web address] [facility] (Imaging) [address] [place], [address], 10/30/2024 17:19:58 Procedure Notes None recorded. Medical Equipment None Reported. Allergies Allergen ID Allergen Name Allergen Category Reaction Reaction Severity Criticality Documentation Date Start Date Code Code System Note Provider Name and Address Organization Details Recorded Time [address]134 Zocor medicatio n other Not available Not available 11/24/202219640 3 RxNorm hair loss Not Available [facility] 12:56:49 Medications Name Sig Start Date Stop Date Status Note LastModified by Organization Details LastModified Time Prescript ion - Prior Authoriza tion Request active PRIOR AUTH APPROVAL EXZOPICL ONE 3 MG GOOD 10-27-2022 TO 11-25-2023 Not Available Not Available Not Available amoxicill in 500 mg capsule Take 1 capsule 3 times a day by oral route for 10 days. 08/06 completed Not Available Not Available Not Available metformin 500 mg tablet TAKE 1 TABLET BY MOUTH TWICE DAILY 11/26 completed Not Available Not Available Not Available atorvasta tin 20 mg tablet TAKE 1 TABLET BY MOUTH EVERY DAY 2024 active Not Available Not Available Not Avai lable azithromy cristobal 250 mg tablet TAKE 2 TABLETS (500 MG) BY ORAL ROUTE ONCE DAILY FOR 1 DAY THEN 1 TABLET (250 MG) BY ORAL ROUTE ONCE DAILY FOR 4 DAYS 08/20 completed Not Available Not Available Not Available benzonata te 200 mg capsule Take 1 capsule 3 times a day by oral route. 02/03 completed Not Available Not Available Not Available hydrocodo ne 5 mg-acetam inophen 325 mg tablet Take 1 tablet every 6 hours by oral route. 11/26 completed Not Available Not Available Not Available meloxicam 15 mg tablet active Not Available Not Available Not Available spironola ctone 100 mg tablet TAKE 1 TABLET BY MOUTH DAILY active Not Available Not Available No t Available promethaz ine 6.25 mg-codein e 10 mg/5 mL syrup Take 5 ML EVERY 6 HOURS by oral route PRN for cough 02/03 completed Not Available Not Available Not Available Nexium 40 mg capsule,d elayed release Take 1 capsule every day by oral route. 08/19 completed Not Available Not Available Not Available sulfameth oxazole 800 mg-trimet hoprim 160 mg tablet TAKE 1 TABLET BY MOUTH EVERY 12 HOURS 08/20 completed Not Available Not Available Not Available Tessalon Perles 100 mg capsule Take 1 capsule 3 times a day by oral route. 01/16 completed Not Available Not Available Not Available lancets PRODIGY TWIST LANCET 28 G TEST ONCE DAILY 04/30 completed Not Available Not Available Not Available magnesium oxide 400 mg (241.3 mg magnesium ) tablet TAKE 1 TABLET BY MOUTH TWICE DAILY 11/26 completed Not Available Not Available Not Available Sinemet 10 mg-100 mg tablet Take 1 tablet every day by oral route at bedtime. 2012 active Not Available Not Available Not Avai lable Kenalog 10 mg/mL suspensio n for injection In office injectio n administ ered by the provider 04/01 completed [facility] [place] [phone] 01-13 Not Available Not Available Not Available hydrocodo ne 7.5 mg-acetam inophen 325 mg tablet TAKE 1 TABLET BY MOUTH THREE TIMES DAILY active Not Available Not Available No t Available cephalexi n 500 mg capsule Take 1 capsule every 6 hours by oral route. active Not Available Not Available No t Available pantopraz ole 40 mg tablet,de layed release TAKE 1 TABLET BY MOUTH EVERY DAY active Not Available Not Available No t Available tobramyci n 0.3 % eye drops INSTILL 1 DROP INTO AFFECTED EYE(S) BY OPHTHALM IC ROUTE EVERY 4 HOURS 02/13 completed Not Available Not Available Not Available losartan 25 mg tablet TAKE 1 TABLET BY MOUTH ONCE DAILY active Not Available Not Available No t Available nicotine 21 mg/24 hr daily transderm al patch Apply 1 patch every day by transder mal route. active Not Available Not Available No t Available docusate sodium 100 mg capsule 11/23 completed Not Available Not Available Not Available Xylocaine 20 mg/mL (2 %) injection solution In office injectio n administ ered by the provider 04/01 completed Not Available Not Available Not Available diclofena c sodium 75 mg tablet,de layed release Take 1 tablet twice a day by oral route. active start after the medrol dose pack finished , take with food Not Available Not Available Not Available lorazepam 1 mg tablet take 1 tablet PO 30mins prior to MRI may repeat if needed 07/01 completed Not Available Not Available Not Available scopolami ne 1 mg over 3 days transderm al patch 08/16 completed Not Available Not Available Not Available methylpre dnisolone 4 mg tablets in a dose pack take the medrol dose pack PO as directed 04/22 completed Not Available Not Available Not Available Vitamin D2 1,250 mcg (50,000 unit) capsule Take 1 capsule every week by oral route. 01/03 completed Not Available Not Available Not Available cefdinir 300 mg capsule TAKE 1 CAPSULE BY MOUTH EVERY 12 HOURS 02/14 completed Not Available Not Available Not Available metformin ER 500 mg tablet,ex tended release 24 hr TAKE ONE TABLET TWICE DAILY active Not Available Not Available No t Available Ambien 5 mg tablet Take 1 tablet every day by oral route at bedtime. 10/05 completed Not Available Not Available Not Available spironola ctone 50 mg tablet Take 1 tablet every day by oral route. 07/18 completed Not Available Not Available Not Available oxycodone 5 mg tablet 02/14 completed Not Available Not Available Not Available Mucinex 600 mg tablet, extended release Take 1 tablet every 12 hours by oral route. 01/16 completed Not Available Not Available Not Available Crestor 10 mg tablet Take 1 tablet every day by oral route. active Not Available Not Available No t Available bupropion HCl XL 150 mg 24 hr tablet, extended release Take 1 tablet every day by oral route. 02/14 completed Not Available Not Available Not Available eszopiclo ne 3 mg tablet TAKE 1 TABLET BY MOUTH AT BEDTIME FOR SLEEP active Not Available Not Available No t Available lidocaine (PF) 10 mg/mL (1 %) injection solution In office injectio n administ ered by the provider 04/01 completed [facility] [place] [phone] Not Available Not Available Not Available metformin ER 500 mg 24 hr tablet,ex tended release (gastric retention ) ONE TWICE A DAY 02/13 completed Not Available Not Available Not Available TRUEplus Lancets 33 gauge use to test blood sugar once daily 11/23 completed Not Available Not Available Not Available TRUEplus Lancets 30 gauge USE TO TEST BLOOD SUGAR ONCE DAILY 11/23 completed Not Available Not Available Not Available Minivelle 08/04 completed Not Available Not Available Not Available True Metrix Glucose Test Strip USE TO TEST EVERY DAY 11/23 completed Not Available Not Available Not Available True Metrix Glucose Test Strip use to test blood sugar once daily 01/24 completed Not Available Not Available Not Available Trulicity 0.75 mg/0.5 mL subcutane ous pen injector ADMINIST ER 0.75 MG UNDER THE SKIN 1 TIME WEEKLY 02/23 completed Not Available Not Available Not Available Epclusa 400 mg-100 mg tablet TAKE 1 TABLET BY MOUTH EVERY DAY 08/10 completed Not Available Not Available Not Available OneTouch Ultra Blue Test Strip TEST BLOOD SUGAR ONCE DAILY DX E11.9 11/23 completed Not Available Not Available Not Available Ozempic 1 mg/dose (4 mg/3 mL) subcutane ous pen injector INJECT 1 MG UNDER THE SKIN ONCE A WEEK 11/23 completed Not Available Not Available Not Available Ozempic 2 mg/dose (8 mg/3 mL) subcutane ous pen injector INJECT 2 MG UNDER THE SKIN ONCE A WEEK active Not Available Not Available No t Available Ozempic 0.25 mg or 0.5 mg (2 mg/3 mL) subcutane ous pen injector INJECT 0.5 MG UNDER THE SKIN ONCE EVERY 7 DAYS 02/12 completed Not Available Not Available Not Available Vitals Date Recorded Body height Body mass index (BMI) Body weight Body temperature Heart rate Oxygen saturation Oxygen saturation in Arterial blood by Pulse oximetry Systolic blood pressure Diastolic blood pressure Provider Name and Address Organization Details Last Updated DateTime 3 165.1 cm 31.6 kg/m2 23953.5 5 g 97.6 [degF] 88 /min 98 % 98 % 130 mm[Hg] 74 mm[Hg] Elizabeth Bahena MA [facility] [employer] [facility] 3 16:05:42 Date Recorded Body height Body mass index (BMI) Body weight Heart rate Body temperature Oxygen saturation Oxygen saturation in Arterial blood by Pulse oximetry Systolic blood pressure Diastolic blood pressure Provider Name and Address Organization Details Last Updated DateTime 3 165.1 cm 27.7 kg/m2 21924.1 3 g 96 /min 97 [degF] 97 % 97 % 110 mm[Hg] 72 mm[Hg] Mary Jack [facility] 3 16:34:23 Date Recorded Pain severity - 0-10 verbal numeric rating [Score] - Reported Provider Name and Address Organization Details Last Updated DateTime 08/22/2023 0 Linda Jimenez RN [facility] 08/22/2023 16:42:16 Date Recorded Body height Body weight Heart rate Body temperature Oxygen saturation Oxygen saturation in Arterial blood by Pulse oximetry Systolic blood pressure Diastolic blood pressure Provider Name and Address Organization Details Last Updated DateTime 4 165.1 cm 91193.9 3 g 89 /min 97.2 [degF] 96 % 96 % 116 mm[Hg] 60 mm[Hg] ISA Matthews [facility] 4 16:19:26 Date Recorded Body height Body mass index (BMI) Body weight Heart rate Body temperature Oxygen saturation Oxygen saturation in Arterial blood by Pulse oximetry Systolic blood pressure Diastolic blood pressure Provider Name and Address Organization Details Last Updated DateTime 4 165.1 cm 26.6 kg/m2 18392.7 8 g 79 /min 97 [degF] 97 % 97 % 122 mm[Hg] 70 mm[Hg] ISA Matthews [facility] 4 16:27:33 Date Recorded Body height Body mass index (BMI) Body weight Body temperature Heart rate Oxygen saturation Oxygen saturation in Arterial blood by Pulse oximetry Systolic blood pressure Diastolic blood pressure Provider Name and Address Organization Details Last Updated DateTime 5 165.1 cm 27 kg/m2 97322.9 6 g 98.1 [degF] 85 /min 96 % 96 % 120 mm[Hg] 72 mm[Hg] Katrin Reid MA [employer] 10:36:34 Date Recorded Heart rate Respiratory rate Provider Kim villalba and Address Organization Details Last Updated DateTime 11/26/2024 85 /min 15 /min Montana Briscoe MD [address], [facility], [place], [address], [employer] 11/26/2024 11:26:15 Social History Question Answer Notes LastModified by Organization Details LastModified Time Tobacco Smoking Status Current Every Day Smoker Not Available [employer] 11/24/2022 12:49:52 Do You Have An Advance Directive? No MIGRATION.0301 [id number] Information not available 11/24/2022 What Is Your Level Of Alcohol Consumption? Occasional [email or web address] Information not available 08/22/2023 Are You Blind Or Do You Have Difficulty Seeing? No MIGRATION.0301 [id number] Information not available 11/24/2022 In The 14 Days Before Symptom Onset, Have You Had Close Contact With A Laboratory-confi rmed COVID-19 While That Case Was Ill? No Information not available 02/14/2023 In The 14 Days Before Symptom Onset, Have You Had Close Contact With A Person Who Is Under Investigation For COVID-19 While That Person Was Ill? No Information not available 02/14/2023 Are You Deaf Or Do You Have Serious Difficulty Hearing? No MIGRATION.0301 [id number] Information not available 11/24/2022 What Type Of Diet Are You Following? REGULAR MIGRATION.0301 [id number] Information not available 11/24/2022 Do You Have An Electrostatic Air Filter? No Information not available 11/26/2024 Have There Been Any Changes To Your Family Or Social Situation? No MIGRATION.0301 250175 Information not available 11/24/2022 What Is The Fluoride Status Of Your Home? Unknown MIGRATION.0301 565424 Information not available 11/24/2022 Do You Have A Humidifier? No Information not available 11/26/2024 Do You Use Insect Repellent Routinely? No MIGRATION.0301 [id number] Information not available 11/24/2022 Where Do You Live? SingleLevelHouse MIGRATION.0301 [id number] Information not available 11/24/2022 Are You Able To Care For Yourself? Yes Information not available 08/22/2023 Are You Blind Or Do Yo Have Difficulty Seeing? No [email or web address] Information not available 08/22/2023 Are You Deaf Or Do You Have Serious Difficulty Hearing? No Information not available 08/22/2023 General Stress Level? Moderate [email or web address] Information not available 08/22/2023 Live Alone Of With Others? With Others [email or web address] Information not available 08/22/2023 Do You Have A Medical Power Of Director Of Construction? No MIGRATION.0301 086520 Information not available 11/24/2022 Do You Have Moisture Problems In Your Home? No Information not available 11/26/2024 What Was The Date Of Your Most Recent Tobacco Screening? 11/26/2024 Information not available 11/26/2024 What Is Your Current Pack Years? [email or web address] MIGRATION.0301 [id number] Information not available 11/24/2022 Do You Have Any Pets? Yes MIGRATION.0301 885011 Information not available 11/24/2022 What Is Your Relationship Status? MIGRATION.0301 [id number] Information not available 11/24/2022 Do You Use Your Seat Belt Or Car Seat Routinely? Yes MIGRATION.0301 205585 Information not available 11/24/2022 Do You Have Smoke And Carbon Monoxide Detectors In Your Home? Yes MIGRATION.0301 479910 Information not available 11/24/2022 Are You Passively Exposed To Smoke? Yes MIGRATION.0301 [id number] Information not available 11/24/2022 Are There Any Smokers In Your House? Yes MIGRATION.0301 775543 Information not available 11/24/2022 How Much Tobacco Do You Smoke? 1 PPD MIGRATION.0301 832595 Information not available 11/24/2022 Do You Use Sunscreen Routinely? Yes MIGRATION.0301 253211 Information not available 11/24/2022 Have You Recently Traveled Abroad? No MIGRATION.0301 345652 Information not available 11/24/2022 Do You Have Any Dietary Restrictions? Yes Diabetic MIGRATION.0301 887503 Information not available 11/24/2022 Sex: Unknown Functional Status Question Answer Note LastModified by Organizat ion Details LastModified Time Do you have difficulty walking or climbing stairs? No MIGRATION.[id number] 026 Information not available 11/24/2022 Do you have transportation difficulties? No MIGRATION.[id number] 026 Information not available 11/24/2022 Are you able to walk? YESWOREST MIGRATION.8924821 026 Information not available 11/24/2022 Do you have difficulty doing errands alone? No MIGRATION.[id number] 026 Information not available 11/24/2022 Are you able to care for yourself? Yes MIGRATION.[id number] 026 Information not available 11/24/2022 Do you have difficulty dressing or bathing? No MIGRATION.5575278 026 Information not available 11/24/2022 What is your exercise level? Occasional MIGRATION.5775591 026 Information not available 11/24/2022 Mental Status Question Answer Note LastModified by Organizat ion Details LastModified Time Do you have difficulty concentrating, remembering or making decisions? No MIGRATION.[id number] 6 Information not available 11/24/2022 Family History Relationship Description Onset Age of this Age Resolved Age Notes LastModified by Organization Details LastModified Time Mother Heart disease MIGRATION.164 [id number] Not available 11/24/2022 12:50:01 Mother Hypertensive disorder MIGRATION.193 [id number] Not available 11/24/2022 12:50:01 Mother Diabetes mellitus MIGRATION.193 [id number] Not available 11/24/2022 12:50:01 Father Hypertensive disorder MIGRATION.348 [id number] Not available 11/24/2022 12:50:01 Father Malignant tumor of colon [email or web address] Not available 2024 11:21:31 Father Gastroesopha geal reflux disease [email or web address] Not available 2024 11:23:28 Maternal Grandmother Diabetes mellitus [email or web address] Not available 2024 11:21:45 Paternal Grandmother Diabetes mellitus [email or web address] Not available 2024 11:21:49 Paternal Grandmother Congestive heart failure [email or web address] Not available 2024 11:21:58 Paternal Aunt Malignant neoplasm of uterus [email or web address] Not available 2024 11:22:23 Paternal Aunt Malignant tumor of breast [email or web address] Not available 2024 11:22:34 Paternal Uncle Diabetes mellitus [email or web address] Not available 2024 11:22:39 Paternal Uncle Heart disease [email or web address] Not available 2024 11:22:48 Brother Diabetes mellitus [email or web address] Not available 2024 11:23:44 Brother Hypertensive disorder [email or web address] Not available 2024 11:23:59 Mother Intracranial aneurysm [email or web address] Not available 2024 11:24:25 Medical History Condition Response BLINDNESS N KIDNEY STONES N MRSA N CARPAL TUNNEL SYNDROME N LUNG DISEASE/DISORDER N HISTORY OF DRUG ABUSE N RADIATION / CHEMOTHERAPY N COPD N SPORTS INJURY N ANKLE PAIN N BLOOD DISEASES N SCHIZOPHRENIA N SHINGLES N BOWEL PROBLEMS N SHOULDER PAIN N DEPRESSION (INCLUDING POST ) N STROKE/TIA N KNEE PAIN N ULCERS N BENIGN PROSTATIC HYPERPLASIA N OBESITY N GERD/NAUSEA N ANEURYSM N URINARY/BLADDER/KIDNEY PROBLEMS N CORONARY ARTERY DISEASE (CAD) N ADDICTION CONCERNS N USE OF BLOOD THINNERS N SKIN PROBLEMS N EMPHYSEMA N MUSCLE,JOINT OR BONE PROBLEMS N DVT N STOMACH ULCERS N BLOOD CLOTS N USE OF NSAIDS N CONCUSSION OR SPINAL TRAUMA N NEUROPATHY N AIDS/HIV N FRACTURES N ELBOW PAIN N HYPERTENSION Y TOURETTE'S N ANXIETY DISORDER N Metal allergy N BLOOD TRANSFUSION N ANEMIA/BLOOD DISORDER N BIPOLAR DISORDER N BRONCHITIS N OSTEOARTHRITIS N TUBERCULOSIS N FOOT PROBLEM N HEART VALVE DISORDERS N ALLERGIES/HAYFEVER N SOFT TISSUE INJURY N INFECTIOUS DISEASE N HEART ARRHYTHMIA N INSOMNIA N RHEUMATOID ARTHRITIS N HIGH CHOLESTEROL / HYPERLIPIDEMIA N EDEMA N CHRONIC PAIN SYNDROME N CAROTID BLOCKAGE N BACK / NECK PROBLEMS N HAVE YOU BEEN HOSPITALIZED OR SEEN IN [facility] IN THE PAST YEAR ? N BURSITIS N HERNIATED DISC N DIALYSIS N FIBROMYALGIA N OSTEOPOROSIS N ARTHRITIS N NO SIGNIFICANT PAST MEDICAL HISTORY N PERIPHERAL NEUROPATHY N DIABETES, TYPE Y HEARTBURN / REFLUX N HEPATITIS / LIVER DISEASE Y GOUT N SLEEP DISORDER N ALZHEIMER'S DISEASE N HERPES N SEIZURES/EPILEPSY N HEADACHES/MIGRAINES N VASCULAR DISEASE N HIP PAIN N Blood Disorder N DIZZINESS N HEAD TRAUMA OR INJURY N HEART DISEASE/HEART PROBLEMS N MULTIPLE SCLEROSIS N CARDIAC ARRHYTHMIA N CANCER: SPECIFY N ANESTHESIA COMPLICATIONS N ATRIAL FIBRILLATION N AUTOIMMUNE DISEASE N Gynecological History Statement/Question Response Date of Last Pap Date of Last Mammogram 08/28/2020 Date of Last Colonoscopy Most Recent Bone Density Obstetrics History GPAL:G 0 P 0 0 0 0 Immunizations Vaccine Type Date Status Note Provider Nam e and Address Organization Details Recorded Time Influenza, split virus, trivalent, preservative 3 completed Not Available [facility] 11/24/2022 12:56:41 pneumococcal polysaccharide PPV23 1 completed Not Available [facility] 11/24/2022 12:56:41 Hep B, adult 1 completed Not Available [facility] 11/24/2022 12:56:42 Hep A, adult 1 completed Not Available [facility] 11/24/2022 12:56:42 Hep B, adult 1 completed Not Available [facility] 11/24/2022 12:56:42 Influenza, split virus, quadrivalent, preservative 9 completed Not Available [facility] 11/24/2022 12:56:42 Hep B, adult 1 completed Not Available [facility] 11/24/2022 12:56:42 Pneumococcal conjugate PCV 13 0 completed Not Available [facility] 11/24/2022 12:56:42 Influenza, split virus, quadrivalent, preservative 5 completed Not Available [facility] 11/24/2022 12:56:42 Past Encounters Encounter ID Performer Location Encounter Start Date Encounter Closed Date Diagnosis/Indication Diagnosis SNOMED-CT Code Diagnosis ICD10 Code Diagnosis Note [id number] [facility] [address] [address] 02/02/2021 00:00:00 02/02/2021 17:01:03 [id number] [facility] [address] [address] 05/07/2021 00:00:00 05/07/2021 10:23:12 [id number] [facility] [address] [address] 08/10/2021 00:00:00 08/10/2021 16:21:47 [id number] [facility] [address] [address] 08/13/2021 00:00:00 08/13/2021 09:59:04 [id number] [facility] [address] [address] 12/17/2021 00:00:00 12/17/2021 09:39:26 [id number] [facility] [address] [address] 02/08/2022 00:00:00 02/08/2022 15:40:38 [id number] [facility] [address] [address] 04/01/2022 00:00:00 04/01/2022 09:34:25 [id number] [facility] [address] [address] 04/22/2022 00:00:00 05/25/2022 19:24:57 [id number] [facility] [address] [address] 07/01/2022 00:00:00 07/01/2022 12:05:02 [id number] [facility] [address] [address] 08/16/2022 00:00:00 08/16/2022 16:31:28 [id number] Dorian Tello MD [facility] [address] [address] 02/14/2023 15:54:10 02/14/2023 17:29:58 Essential hypertension 19839227 I10 Gastroesop hageal reflux disease 754959683 K21.9 Pure hypercholesterolemia 303748346 E78.00 Type 2 cee betes mellitus without complication 698689164 E11.9 Chronic pain syndrome 37 7568147 G89.4 Obese class I 4496129044 99727 E66.9 Long-term current use of opiate analgesic drug 8229361144 33267 Z79.861 [id number] Dorian Tello MD [facility] [address] [address] 08/22/2023 16:18:13 08/22/2023 17:08:26 Adult health examination 246540817 Z00.00 Screening for disorder 423702097 Z13.9 Essential hypertension 67192396 I10 Pure hypercholesterolemia 469022552 E78.00 Type 2 cee betes mellitus without complication 523281924 E11.9 Gastroesop hageal reflux disease [id number] K21.9 [id number] Dorian Tello MD [facility] Internal [place] [address] [address] 02/13/2024 16:12:30 02/13/2024 16:56:13 Essential hypertension 96713607 I10 Gastroesop hageal reflux disease 150342169 K21.9 Pure hypercholesterolemia 586524806 E78.00 Type 2 cee betes mellitus without complication 706184193 E11.9 Chronic pain syndrome 37 5894753 G89.4 Long-term current use of opiate analgesic drug [id number] 73897 Z79.514 [id number] Dorian Tello MD [facility] Internal [facility] [address] [address] 08/20/2024 16:22:39 08/20/2024 16:47:32 Essential hypertension 28132496 I10 Gastroesop hageal reflux disease 972957191 K21.9 Pure hypercholesterolemia 491798366 E78.00 Type 2 cee betes mellitus without complication [id number] E11.9 [id number] [place] Briscoe MD [facility] Pulmonolo [facility] [address] [place] [address] 0 11/26/2024 09:51:09 11/26/2024 15:40:09 Solitary nodule of lung 810569379 R91.1 Smoker 36379423 F17.218 F17.219 Z87.891 Chronic cough 36874972 R 05.3 R06.00 T78.40XA D89.9 Health Concerns Section Related Observation LastModified by Organization Detai ls LastModified Time None Recorded Concern Status LastModified by Organization Details LastModified Time None Recorded Advance Directives Directive N: Payers Encounter Date Sequence Insurance Name Policy Number Policy Escobar Covered Member ID Escobar Member ID Guarantor Name 02/14/2023 1 [facility] - DUAL OPTIONS (MEDICARE - MEDICAID REPLACEMENT HMO) [id number] Sage Macias [id number] Sage Macias 08/22/2023 1 [facility] [place] - DUAL OPTIONS (MEDICARE - MEDICAID REPLACEMENT HMO) [id number] Sage F Ray [id number] Sage F Ray 02/13/2024 1 [facility] [place] - DUAL OPTIONS (MEDICARE - MEDICAID REPLACEMENT HMO) [id number] Sage F Ray [id number] Sage F Ray 08/20/2024 1 [facility] [place] (MEDICARE - MEDICAID REPLACEMENT O) [id number] Sage F Ray [id number] Sage F Ray 11/26/2024 1 [facility] [place] (MEDICARE - MEDICAID REPLACEMENT O) [id number] Sage Uriostegui Ray [id number] Sage F Ray Notes Date Note Type Note Provider Name and Address Organization Details Recorded Time 3 text/html Patient Name: Sage MaciasDate Of Service: Tuesday ( 02.14.2023 ): 1955 Age: 68 Vital Signs:Blood Pressure: Sitting Rt. Arm 130/74Pulse: Sitting 88 /min and RegularRespirations: 12Height 65 in or 1.7 mWeight 190 lb or 86.2 kgBMI 31.6Temperature: 97.6 F or 36.4 CDCCT HAIC: 6.0 Calculated MB mg%Pulse Oximetry: 98 % at rest on no oxygen Chief Complaint: Addressed in HPI Problems or conditions discussed in the HPI were the only ones reviewed during the encounter.Only social and family history addressed in the HPI were reviewed during this encounter. Attendant(s): None Constitutional and Systemic Symptoms: anorexia, generalized fatigue, myalgia and arthralgia Medication Reconciliation: from medication list. History of Present Illness #1. Essential Hypertension: Stage: Stage I Interval Neurological Complaints no headaches, dizziness, weakness, visual changes, ataxia, aphasia and apraxia. No shortness of breath, orthopnea or cardiovascular symptoms. No other symptoms related to end organ damage. Pressure has been under excellent control. Currently normal. No other end organ symptoms or findings. Therapy reviewed regarding management of hypertension and includes salt restriction and Cozaar. #2. Type II Hypercholesterolaemia: Currently taking medication and tolerating well. No interval complaints of any muscle pain or arthralgia. No significant liver changes with medications. Last lipid panel: fair control. Therapy reviewed regarding treatment of cholesterol management and include diet and Lipitor. #3. Type II Diabetes: Has had no polyuria polyphagia or polydipsia. Has had no hypoglycemic like responses. No new history of any numbness, tingling, weakness or visual problems. No nausea, anorexia or other constitutional symptoms. There has been no foot problems or non healing lesions. The last HAIC was [facility] HAIC: 6.0 Calculated MB mg%. Average blood sugars 116-125 mg%. Checking sugars : several times a week Medication Types Include: Metformin and GLP-1 Secondary complications include none. Macro-vascular complications include none. Therapy reviewed regarding diabetic management and include Glucophage and Trulicity Compliance: good Renal Protection: ARBs Lipid management: statins Urinary microalbumin: A1 . Ophthalmological: has seen eye doctor within the last year #4. Hx of esophageal reflux currently stable. Hx of Complications: none The severity, duration and intensity of symptoms have improved. Frequency: most meals Treatment consists medications taken on a regular basis. Current therapy includes Protonix. There has been no nausea, eructation, vomiting, hematemesis, dysphagia, velopharyngeal insufficiency and odynophagia. No change in he frequency or intensity of symptoms. Has had no melena. Has had no hematemesis. Discuss the possibility of trying to reduce the frequency of the use of any PPI inhibitors or H2 antagonist to see if symptoms can be controlled with last intensive therapy #5. Chronic pain management for chronic lumbar and generalized joint pain Since last examination no significant change since last examination Interval Testing: noneHas tried NSAIDS partial relief requiring additional medication. Pain Description: constant, exacerbated by activity and interferes with enjoyment and ability to perform daily tasks. Severity: 5 ]. Currently seeing or has seen in the past a Medical Driver: NoPain - Enjoyment of Life - General Activity ScalePain on Average: 5Enjoyment of Live: 4General Activity: 4Score: 5Currently regimen consists of Harlan as prescribed with no evidence of abuse or self prescribing. Current Average Morphine Milligram Approximate Equivalent: 22 mg approximated if taking full dosage daily. Recommend: NABenzodiazepines or other hypnotics: noAlternative pain management modalities (acupuncture - behavior therapy- additional PT - SNRIs) have been discussed and have either been tried in the past or not acceptable alternatives to patient or not available in our location.Will kept medications the same.Urine Testing: will be performed and patient instructed that failure of testing within a 24 hour period from time of order may result in termination of medication.Controlled substance database no.Patient reports condition is stable and is able to function with the medication. Denies any misuse or adverse effects.TREATMENT OBJECTIVE: Enhance ability to manage pain independently, improved function and sustain quality of life. Recommendations or alternative therapies and lifestyle changes are discussed on each visit. Has shown improvement inf functionality. Has been educated on the side effects,risks and any black box warnings. Has verbalized the dangers of some of the medications regarding driving and cooperating heavy machinery and have advised against this. . #6. Hx of obesity. Currently Class 1 Obesity BMI 30-34.99. Has tried numerous dietary support and supplements with no benefit. Instructed on the health consequences of the obese status particularly cancer - diabetes and heart disease. Discussed new modalities of weight loss including GLP-1 medications that are used to treat diabetes. Potential candidate for bariatric surgery: No. Wishes to be evaluated by Dietary: No and was offered to be evaluated and instructed by e commerce analyst on weight loss diet.Medication List Reviewed and Reconciled 02/14/2023Norco 325 MG-7.5 MG (TABLET - ORAL) One Three Times DailyCozaar 25 MG (TABLET - ORAL) One DailyLunesta 3 MG (TABLET - ORAL) One Hs For SleepTrulicity 1.5 MG/0.5 ML (INJECTABLE - INJECTION) Once WeeklyLipitor 20 MG (TABLET - ORAL) One Hs For CholesterolProtonix 40 MG (TABLET, DELAYED RELEASE - ORAL) Take One Tablet DailyGlucophage 500 MG (TABLET - ORAL) One Twice DailySpironolactone 100 mg dailyADRs List Reviewed 02/14/2023Zocor Hair LossCrestor Hair LossVaccination and Bnmfiadhwxob7916-05 Pneumovax 075757-27 Hep A7298-97 Hep K7583-64 Prevnar 795837-98 InfluenzaSurgical HistoryLeft Adnexal Mass, Left Ulnar Nerver Surgery, Lipo disolve Tx to AbdomenPreventative Testing Confirmed by Our Ubsdrgs3308/16/2022 ALBUMIN 4.7 G/DL H110/16/2021 MICRO ALBUMIN <6.0 MG/L110/16/2021 [facility] 6.0 %09/03/2021 MAMMOGRAM 2111/04/2020 DEXA SCAN07/19/2016 [facility]11/29/2012 UPPER ENDOSCOPYSocial HistorySmokes one pack daily for 15+ yearsDoes not drinkWorks outside lawn serviceFamily HistoryMother 80 hx of Type II Diabetes and cerebral aneurysm.Father 78 good healthOne brother living and in good health but has DMMenarche 12 Menopause A0 Dorian Tello MD [address] [facility], [facility] [address], [place], [address], [facility] [employer] 02/14/2023 16:26:20 3 text/html Patient Name: Sage MaciasDate Of Service: Tuesday ( 08.22.2023 ): 1955 Age: 68 There has been approximately a 23.5 lb weight loss since 02/14/2023. This represents approximately a 12.4% change in weight. Weight change attributable to lifestyle changes. Vital Signs:Blood Pressure: Sitting Rt. Arm 110/72Pulse: Sitting 96 /min and RegularRespiratory Rate: 12Height 65 in or 1.7 mWeight 166.5 lb or 75.5 kgBMI 27.7Temperature: 97 F or 36.1 CPulse Oximetry: 97 % at rest on no oxygen Chief Complaint: Addressed in HPI Problems or conditions discussed in the HPI were the only ones reviewed during the encounter.Only social and family history addressed in the HPI were reviewed during this encounter. A significant, separate E/M service was performed to evaluate the current and new problems. Attendant(s): NoneConstitutional and Systemic Symptoms:none Medication Reconciliation: from medication list. Vtzzmbopeyf95/07/2023: Low-dose CT scan of chest reveals a 6 mm ground-glass nodule in the right upper lobe. No suspicious mediastinal or axillary adenopathy noted heart is slightly enlarged. There is coronary artery calcifications noted. Thoracic aorta is fine. Recommend a repeat low due CT in approximately six months to follow the small nodule in the right upper lobe. History of Present Illness Reviewed the findings of the preventative health visit. Addressed all areas with the patient, patient's family or caregivers. Preventative examinations and testing immunizations - vaccinations, colonic neoplasm screening, mammograms, LDCT thorax and DEXA Scan all reviewed and ordered where patient was amenable to the recommendations. Cognitive function was normal. Depression addressed and where necessary medications were adjusted or instituted. End of life and living will briefly discussed with patient and where these can be filled out and legally executed. Other blood and imaging studies were ordered if considered necessary. Other recommendations may be found in the encounter note. #1. Essential Hypertension: Stage: normal Interval Neurological Complaints no headaches, dizziness, weakness, visual changes, ataxia, aphasia and apraxia. No shortness of breath, orthopnea or cardiovascular symptoms. No other symptoms related to end organ damage. Pressure has been under excellent control. Currently normal. No other end organ symptoms or findings. Therapy reviewed regarding management of hypertension and includes salt restriction and Cozaar and Spironolactone. #2. Type II Hypercholesterolaemia: Currently taking medication and tolerating well. No interval complaints of any muscle pain or arthralgia. No significant liver changes with medications. Last lipid panel: fair control. Therapy reviewed regarding treatment of cholesterol management and include diet and Lipitor. #3. Type II Diabetes: Has had no polyuria polyphagia or polydipsia. Has had no hypoglycemic like responses. No new history of any numbness, tingling, weakness or visual problems. No nausea, anorexia or other constitutional symptoms. There has been no foot problems or non healing lesions. The last HAIC was [facility] HAIC: 6.2 Calculated MB mg%. Average blood sugars 100-115 mg%. Checking sugars : infrequently Medication Types Include: Metformin Secondary complications include none. Macro-vascular complications include none. Therapy reviewed regarding diabetic management and include Glucophage Compliance: good Renal Protection: ARBs Lipid management: statins Urinary microalbumin: A1 . Ophthalmological: has seen eye doctor within the last year #4. Hx of esophageal reflux currently stable. Hx of Complications: none The severity, duration and intensity of symptoms have improved. Frequency: most meals Treatment consists medications taken on a regular basis. Current therapy includes Protonix. There has been no nausea, eructation, vomiting, hematemesis, dysphagia, velopharyngeal insufficiency and odynophagia. No change in he frequency or intensity of symptoms. Has had no melena. Has had no hematemesis. Discuss the possibility of trying to reduce the frequency of the use of any PPI inhibitors or H2 antagonist to see if symptoms can be controlled with last intensive therapyMedication List Reviewed and Reconciled 08/22/2023Norco 325 MG-7.5 MG (TABLET - ORAL) One Three Times DailyCozaar 25 MG (TABLET - ORAL) One DailyLunesta 3 MG (TABLET - ORAL) One Hs For SleepTrulicity 1.5 MG/0.5 ML (INJECTABLE - INJECTION) Once WeeklySpironolactone 100 MG TABLET One DailyLipitor 20 MG (TABLET - ORAL) One Hs For CholesterolProtonix 40 MG (TABLET, DELAYED RELEASE - ORAL) Take One Tablet DailyGlucophage 500 MG (TABLET - ORAL) One Twice DailyADRs List Reviewed 08/22/2023Zocor Hair LossCrestor Hair LossVaccination and Vvmhdsyminim6687-40 Dyfdhzxhz1487-81 Hep F7957-29 Hep L0678-17 Prevnar 13 Sw2131-24 InfluenzaSurgical HistoryLeft Adnexal Mass, Left Ulnar Nerver Surgery, Lipo disolve Tx to AbdomenPreventative Testing Confirmed by Our Wnnfqpm2406/23/2023 MAMMOGRAM /03/2023 ALBUMIN 4.4 G/DL N003/02/2023 LDCT MICRO ALBUMIN 8.6 MG/L N003/02/2023 HAIC 6.2 % 09/03/2021 DEXA SCAN11/29/2012 UPPER ENDOSCOPYSocial HistorySmokes one pack daily for 15+ yearsDoes not drinkWorks outside lawn serviceFamily HistoryMother 87 hx of Type II Diabetes and cerebral aneurysm.Father 92 good healthOne brother living and in good health but has DMMenarche 12 Menopause A0 Dorian Tello MD [address] [facility], [facility] [address], [place], [address], [place] [facility] [employer] 08/22/2023 16:57:49 4 text/html Patient Name: Sage MaciasDate Of Service: Tuesday ( 02.13.2024 ): 1955 Age: 69 Vital Signs:Blood Pressure: Sitting Rt. Arm 116/60Pulse: Sitting 89 /min and RegularRespiratory Rate: 12Height 65 in or 1.7 mWeight 167 lb or 75.7 kgBMI 27.8Temperature: 97.2 F or 36.2 CPulse Oximetry: 96 % at rest on no oxygen Chief Complaint: Addressed in HPI Problems or conditions discussed in the HPI were the only ones reviewed during the encounter.Only social and family history addressed in the HPI were reviewed during this encounter. Attendant(s): NoneConstitutional and Systemic Symptoms:none Medication Reconciliation: from medication list. History of Present Illness #1. Essential Hypertension: Stage: Stage I Interval Neurological Complaints no headaches, dizziness, weakness, visual changes, ataxia, aphasia and apraxia. No shortness of breath, orthopnea or cardiovascular symptoms. No other symptoms related to end organ damage. Pressure has been under excellent control. Currently normal. No other end organ symptoms or findings. Therapy reviewed regarding management of hypertension and includes salt restriction and Cozaar. #2. Type II Hypercholesterolaemia: Currently taking medication and tolerating well. No interval complaints of any muscle pain or arthralgia. No significant liver changes with medications. Last lipid panel: fair control. Therapy reviewed regarding treatment of cholesterol management and include diet and Lipitor. #3. Type II Diabetes: Has had no polyuria polyphagia or polydipsia. Has had no hypoglycemic like responses. No new history of any numbness, tingling, weakness or visual problems. No nausea, anorexia or other constitutional symptoms. There has been no foot problems or non healing lesions. [facility] Calculated MB mg%. Average blood sugars 100-115 mg%. Checking sugars : several times a week Medication Types Include: Metformin and GLP-1 Secondary complications include none. Macro-vascular complications include none. Therapy reviewed regarding diabetic management and include Glucophage and Ozempic Compliance: excellent Renal Protection: ARBs Lipid management: statins Urinary microalbumin: A1 . Ophthalmological: has seen eye doctor within the last year #4. Hx of esophageal reflux currently stable. Hx of Complications: none The severity, duration and intensity of symptoms have improved. Frequency: most meals Treatment consists medications taken on Protonix basis. Current therapy includes Protonix. There has been no nausea. No change in he frequency or intensity of symptoms. Has had no melena. Has had no . Discussed use of H2 antagonists and the possibility of trying to reduce the frequency of the use of any PPI inhibitors and try H2 antagonists to see if symptoms can be controlled with lease intensive therapy since a number of complications are associated with chronic prolonged use of PPI inhibitors. #5. Chronic pain management for chronic generalized joint pain Since last examination somewhat improved Interval Testing: noneHas tried NSAIDS partial relief requiring additional medication. Pain Description: constant and constant - intermittently exacerbated. Currently seeing or has seen in the past a Medical Driver: No .Pain - Enjoyment of Life - General Activity ScalePain on Average: 5Enjoyment of Live: 5General Activity: 4Enjoyment of Life - General Activity Scale: 5Currently regimen consists of Harlan as prescribed with no evidence of abuse or self prescribing. Current Average Morphine Milligram Approximate Equivalent: 22 mg approximated if taking full dosage daily. Recommend: NA.Benzodiazepines or other hypnotics: no.Alternative pain management modalities (acupuncture - behavior therapy- additional PT - SNRIs) have been discussed and have either been tried in the past or not acceptable alternatives to patient or not available in our location.Will kept medications the same.Urine Testing: will be performed and patient instructed that failure of testing within a 24 hour period from time of order may result in termination of medication.Controlled substance database yes and no discrepancies or multiple prescribers noted. Pill counts when available have been acceptable. No other signs of any abuse.Patient reports condition is stable and is able to function with the medication. Denies any misuse or adverse effects.TREATMENT OBJECTIVE: Enhance ability to manage pain independently, improved function and sustain quality of life. Recommendations or alternative therapies and lifestyle changes are discussed on each visit. Has shown improvement inf functionality. Has been educated on the side effects,risks and any black box warnings. Has verbalized the dangers of some of the medications regarding driving and cooperating heavy machinery and have advised against this. Active Medication ListNorco 325 MG-7.5 MG (TABLET - ORAL) One Three Times DailyCozaar 25 MG (TABLET - ORAL) One DailyLunesta 3 MG (TABLET - ORAL) One Hs For SleepOzempic 1.34 MG/ML INJECTION, SOLUTION Once WeeklySpironolactone 100 MG TABLET One DailyLipitor 20 MG (TABLET - ORAL) One Hs For CholesterolProtonix 40 MG (TABLET, DELAYED RELEASE - ORAL) Take One Tablet DailyGlucophage 500 MG (TABLET - ORAL) One Twice DailyMag-ox 400 One Bid Adverse Drug Reactions ReviewedZocor Hair LossCrestor Hair Loss Vaccination and Zxwscibaagni4449-21 Ccqchejwx8599-05 Hep T2800-77 Hep B8735-49 Prevnar 13 Zi1038-38 Influenza Surgical Pvmiosz7205-58 Left Adnexal Hxzq4747-99 Left Ulnar Nerver Negpmhq5633-98 Lipo disolve Tx to Abdomen Preventative Nnrnxud5409/12/2023 ALBUMIN 3.8 G/DL09/12/2023 LDCT 4111/13/2022 DEXA SCAN (NORMAL)09/12/2023 HAIC 5.5 %06/23/2023 MAMMOGRAM 406/03/2023 MICRO ALBUMIN 8.6 MG/L N011/29/2012 UPPER ENDOSCOPY Social HistorySmokes one pack daily for 15+ yearsDoes not drinkWorks outside lawn service Family HistoryMother 87 hx of Type II Diabetes and cerebral aneurysm.Father 92 good healthOne brother living and in good health but has DMMenarche 12 Menopause A0 Dorian Tello MD [address] [facility], [facility] [address], [place], [address], [facility] [employer] 02/13/2024 16:51:51 4 text/html Patient Name: Sage Murdock Of Service: Tuesday ( 08.20.2024 ): 1955 Age: 69 There has been approximately a 7 lb weight loss since 02/13/2024. This represents approximately a 4.2% change in weight. Weight change attributable to lifestyle changes. Vital Signs:Blood Pressure: Sitting Rt. Arm 122/70Pulse: Sitting 79 /min and RegularRespiratory Rate: 16Height 65 in or 1.7 mWeight 160 lb or 72.6 kgBMI 26.6Temperature: 97 F or 36.1 CPulse Oximetry: 97 % at rest on no oxygen Chief Complaint: Addressed in HPI Problems or conditions discussed in the HPI were the only ones reviewed during the encounter.Only social and family history addressed in the HPI were reviewed during this encounter. Attendant(s): NoneConstitutional and Systemic Symptoms:none Medication Reconciliation: from medication list. Plobvvouezn75/07/2023: Low-dose CT scan of chest reveals a 6 mm ground-glass nodule in the right upper lobe. No suspicious mediastinal or axillary adenopathy noted heart is slightly enlarged. There is coronary artery calcifications noted. Thoracic aorta is fine. Recommend a repeat low due CT in approximately six months to follow the small nodule in the right upper lobe. 09-12-2023: CT scan shows persistent multiple nodules. Recommendation is to obtain a PET/CT of the chest to further assess. 10-25-2023: PET scan skull to mid thigh pulmonary nodules measuring up to 7 mm in diameter with increased activity probably benign. Noncontrast low-dose CT scan of the chest recommended in six months. No evidence of any type of metastatic disease. History of Present Illness #1. Essential Hypertension: Stage: Stage I Interval Neurological Complaints no headaches, dizziness, weakness, visual changes, ataxia, aphasia and apraxia. No shortness of breath, orthopnea or cardiovascular symptoms. No other symptoms related to end organ damage. Pressure has been under excellent control. Currently normal. No other end organ symptoms or findings. Therapy reviewed regarding management of hypertension and includes salt restriction and Cozaar and Spironolactone. #2. Type II Hypercholesterolaemia: Currently taking medication and tolerating well. No interval complaints of any muscle pain or arthralgia. No significant liver changes with medications. Last lipid panel: fair control. Therapy reviewed regarding treatment of cholesterol management and include diet and Lipitor. #3. Hx of esophageal reflux currently stable. Hx of Complications: none The severity, duration and intensity of symptoms have improved. Frequency: most meals Treatment consists medications taken on no regular basis. Current therapy includes Protonix. There has been no nausea. No change in he frequency or intensity of symptoms. Has had no melena. Has had no . Discussed use of H2 antagonists and the possibility of trying to reduce the frequency of the use of any PPI inhibitors and try H2 antagonists to see if symptoms can be controlled with lease intensive therapy since a number of complications are associated with chronic prolonged use of PPI inhibitors. #4. Type II Diabetes: Has had no polyuria polyphagia or polydipsia. Has had no hypoglycemic like responses. No new history of any numbness, tingling, weakness or visual problems. No nausea, anorexia or other constitutional symptoms. There has been no foot problems or non healing lesions. The last HAIC was DCCT HAIC: 5.7 Calculated MB mg%. CGM: No. Average blood sugars 100-115 mg%. Checking sugars : several times a week. Medication Types Include: Metformin and GLP-1 Secondary complications include none. Macro-vascular complications include none. Therapy reviewed regarding diabetic management and include Ozempic Compliance: good Renal Protection: ARBs Lipid management: statins Urinary microalbumin: A1 . Ophthalmological: has not seen eyed doctor in last year and instructed to make appointment with the carton forming machine helper or cardiothoracic physiotherapist. Control: Below 6.2 Active Medication ListNorco 325 MG-7.5 MG (TABLET - ORAL) One Three Times DailyCozaar 25 MG (TABLET - ORAL) One DailyLunesta 3 MG (TABLET - ORAL) One Hs For SleepOzempic 2.68 MG/ML INJECTION, SOLUTION Once WeeklySpironolactone 100 MG TABLET One DailyLipitor 20 MG (TABLET - ORAL) One Hs For CholesterolProtonix 40 MG (TABLET, DELAYED RELEASE - ORAL) Take One Tablet DailyMag-ox 400 One Bid Adverse Drug Reactions ReviewedZocor Hair LossCrestor Hair Loss Vaccination and Immunization(X) 2019-07 INFLUENZA( ) 2020-07 PREVNAR 13 GC( ) 2020-11 HEP A( ) 2020-11 HEP B( ) 2021-07 PNEUMOVAX Surgical [id number] Left Adnexal [id number] Left Ulnar Nerver [id number] Lipo disolve Tx to Abdomen Preventative Testing( ) 02/29/2024 Albumin 3.9 G/DL( ) 02/29/2024 HAIC 5.7( ) 02/29/2024 Micro Albumin 33.5 MG/L H( ) 09/12/2023 LDCT 09/12/2024( ) 09/12/2023 DEXA Scan (Normal)( ) 06/23/2023 Mammogram 06/23/2025( ) 11/29/2012 Upper Endoscopy Social HistorySmokes one pack daily for 15+ yearsDoes not drinkWorks outside Local Mattersn service Family HistoryMother 87 hx of Type II Diabetes and cerebral aneurysm.Father 92 good healthOne brother living and in good health but has DMMenarche 12 Menopause A0 Dorian Tello MD [address] [facility], [address], [place], [address], [place] - [facility] 08/20/2024 16:39:00 5 text/html Primary care/Referring provider: Dorian Tello MD CC: I have an abnormal chest CT. Patient is here to go over cough evaluation and management. Initial development of cough: 2020 Duration of cough: 4 years Nature of cough: productive of clear sputum Condition of cough: stable Timing of cough: none Frequency: thrice a week Limits activities: yes Aggravating factors: walking briskly, itchy throat, perennial allergies, smoking Alleviating factors: resting Treatment history: None Other symptoms: Drooling: no Dysarthria: no Neck pain: no Odynophagia: no Dysphagia: no Weak mastication: no Facial weakness: no Nasal speech: no Protruding tongue: no Wheezing: no Chest tightness: yes Orthopnea: 2-pillow habit Frequent throat clearing or swallowing: yes Palpitations: no Heartburn: no Edema: no Modified Medical [employer] [place] (mMRC) Dyspnea Scale - Grade 1 Grade 0 I only get breathless with strenuous exercise . Grade 1 I get short of breath when hurrying on the level or walking up a slight hill . Grade 2 I walk slower than people of the same age on the level because of breathlessness or have to stop for breath when walking at my own pace on the level . Grade 3 I stop for breath after walking about 100 yards or after a few minutes on the level . Grade 4 I am too breathless to leave the house or I am breathless when dressing . Environmental exposures: Nicotine smoke: 1 ppd 1976-present (quit 6 years in between) = 42 pack years Forks: no Dye: no Dust mites: yes Mold: no Damp basement: no Wood burning stove: no Animal dander: yes dogs Cockroaches: no Pollen: yes Arsenic: no Asbestos: no Beryllium: no Cadmium: no Chromium: no Hubbard smoke: no Diesel fumes: no Nickel: no Silica: no Soot: no EPWORTH SLEEPINESS SCALE (ESS) CHANCE OF DOZING SCORE 0 = would never doze 1 = slight chance of dozing 2 = moderate chance of dozing 3 = high chance of dozing SITUATION AND CHANCE OF DOZING Sitting and reading - 0 Watching television - 1 Sitting inactive in a public place (e.g. a theater or meeting) - 0 As a passenger in a car for an hour without a break - 0 Lying down to rest in the afternoon when circumstances permit - 1 Sitting and talking to someone - 0 Sitting quietly after lunch without alcohol - 0 In a car, while stopped for a few minutes in the traffic - 0 TOTAL SCORE 2 Subjectively, patient has a slight chance of dozing. Montana Briscoe MD [address] [address], [place], [address], [facility] 11/26/2024 11:26:24 OBGyn Episode No OBEpisode recorded.
== END 2024-12-04 10:24 | disposition home or self-care (01) ==
LOC: ANHIMG 10:24
PROVIDERS: PCP Internal Medicine; Visit Provider Internal Medicine Pulmonary Disease
DX: R91.1 Solitary pulmonary nodule (principal)
CPT/HCPCS: 78815; A9552

== ENCOUNTER 2024-12-12 08:46 | Outpatient (CLI) | payer OTHER, SELFPAY ==
[2024-12-07 15:34] VITALS: BMI 24.5
--- NOTE | 2024-12-07 15:35 | PC.NURSE ---
Pre Radiology instructions Report to the outpatient rj domínguez on date __12/12/24___ at time ___9:00AM____ for procedure Time: __11:00AM__ YOU MAY BE MONITORED AT HOSPITAL FOR UP TO 4 HOURS AFTER YOUR PROCEDURE. A visitor will be allowed to accompany the patient into the hospital. You and your visitor will be asked to self-screen and do not enter if you have any COVID symptoms. A mask is OPTIONAL within the hospital. Patients are to have no food or drink 6 hours prior to procedure time Driving will be restricted after the procedure, you must have a person to drive you home. Labs will be drawn in preop area and once reviewed, you will be taken to radiology area for procedure. When the procedure is completed, you will be taken to outpatient where you will be monitored for several hours. You may have one visitor in this area. Other than holding anti-coagulants, patient may take other medication(s) as scheduled. Prior to your appointment date patients are instructed to hold anti-coagulants after discussing with ordering provider to stop. If unable to discontinue anti-coagulants please notify radiologist. ? No aspirin or warfarin (Coumadin) for 7 days prior to the procedure. ? No clopidogrel (Plavix), ticagrelor (Brilinta), prasugrel (Effient) or dabigatran (Pradaxa) for 5 days prior to the procedure. ? No rivaroxaban (Xarelto), apixaban (Eliquis), dipyridamole (Aggrenox or Persantine) or cilostazol (Pletal) for 2 days prior to the procedure. Medications to discontinue per physician: ____NONE____ Date to take last dose: Please leave all valuables, including medications, at home the day of procedure. The hospital will not accept responsibility for valuables. Wear comfortable, loose fitting clothing.? Follow any additional instructions given to you from ordering provider. Telephone instructions given to ____PATIENT and asked if any additional questions and then verbalized understanding. Patient advised to call scheduling provider office or registration scheduling [phone] if any additional questions.
[2024-12-12] VITALS (11 sets, daily range): BP systolic 111–139; BP diastolic 57–77; PULSE 46–68; RESP 18–20; TEMP 36.6; O2SAT 98–100
--- NOTE | ~2024-12-12 | XR_ITS ---
EXAMINATION: XR chest 1V DATE: 12/12/2024 12:02 INDICATION: Status post left lung biopsy TECHNIQUE: frontal view of the chest was obtained. COMPARISON: PET/CT dated 12/04/2024 FINDINGS: The lungs are clear with no focal airspace opacities, pulmonary edema, pleural effusion or pneumothor ax. The cardiomediastinal silhouette is normal. Visualized bones and soft tissues are unremarkable. IMPRESSION: 1. No pneumothorax or other acute cardiopulmonary disease post percutaneous biopsy of a left lower lo be nodule which is obscured by the left hilum. Reviewed, dictated and finalized at location A. IMPRESSION: 1. No pneumothorax or other acute cardiopulmonary disease post percutaneous bio psy of a left lower lobe nodule which is obscured by the left hilum.
--- NOTE | ~2024-12-12 | XR_ITS ---
CHEST RADIOGRAPH CLINICAL HISTORY: Post Image Guided Lung Biopsy . COMPARISON: Examination is compared with multiple prior studies, performed most recently approximatel y 2 hours earlier and dating back to immediately postprocedure. TECHNIQUE: Single portable view of the chest. FINDINGS The cardiomediastinal silhouette is unremarkable. Trace left-sided pneumothorax, with less than 2 cm of separation. Possibly secondary to positioning f or which repeat examination may be performed. The remainder of the lungs are clear. IMPRESSION: Trace left-sided pneumothorax, with less than 2 cm of separation possibly secondary to positioning fo r which repeat examination may be performed. Reviewed, dictated and finalized at location A. IMPRESSION: Trace left-sided pneumothorax, with less than 2 cm of separation possibly secon vianca to positioning for which repeat examination may be performed.
--- NOTE | ~2024-12-12 | XR_ITS ---
EXAMINATION: XR chest 1V portable DATE: 12/12/2024 13:11 INDICATION: Status post percutaneous left lung biopsy TECHNIQUE: frontal view of the chest was obtained. COMPARISON: Chest radiograph dated 12/12/2024 11:58 AM FINDINGS: The lungs remain clear with no focal airspace opacities, pulmonary edema, pleural effusion or pneumot horax. The cardiomediastinal silhouette is normal. IMPRESSION: 1. No pneumothorax or other acute cardiopulmonary disease post percutaneous biopsy of the left lower lobe nodule which is obscured by the left hilum. Reviewed, dictated and finalized at location A. IMPRESSION: 1. No pneumothorax or other acute cardiopulmonary disease post percutaneous bio psy of the left lower lobe nodule which is obscured by the left hilum.
--- NOTE | ~2024-12-12 | CT_ITS ---
EXAMINATION: CT biopsy lung w/imaging DATE: 12/12/2024 11:56 INDICATION: Solitary left lower lobe pulmonary nodule TECHNIQUE: The procedure including the risks and benefits was discussed with the patient. Risks discu ssed included infection, approximately 1/20 risk of symptomatic hemorrhage beyond mild hemoptysis, ap proximately 1/3 risk of pneumothorax, and approximately 1/10 risk of pneumothorax severe enough to wa rrant chest tube placement. The patient understood the risks and agreed to proceed. The patient was p laced supine. The skin overlying the left mid thoracic paraspinal region was prepped and draped in s terile fashion. Anesthetic was administered with 1% lidocaine subcutaneously. A 19 gauge outer need le was advanced under CT guidance to the lesion of interest. A 20 gauge core biopsy needle was then u sed to obtain 2 core biopsy specimens. The needle was removed and the entry site was cleaned and dres sed. There were no immediate complications. The dose-length product was 123.77 mGy-cm. FINDINGS: CT images demonstrate the outer needle tip adjacent to the 1.3 cm perihilar left lower lobe nodule of concern. IMPRESSION: 1. Successful CT-guided biopsy of a 1.3 cm perihilar left lower lobe nodule of concern.. Reviewed, dictated and finalized at location A.
--- NOTE | ~2024-12-12 | XR_ITS ---
EXAMINATION: XR chest 2V DATE: 12/12/2024 16:00 INDICATION: Possible pneumothorax post percutaneous left lung biopsy TECHNIQUE: Upright PA view of the chest and a right lateral decubitus view of the chest was obtained. COMPARISON: Prior portable chest radiographs dated 12/12/2024 FINDINGS: Subtle oblique linear band of discoid atelectasis/scarring at the left mid to upper lung zone which i s been present since PET/CT dated 10/25/2023. The biopsied nodule can be seen projecting over the infe rior left perihilar vasculature. Lungs remain otherwise clear with no other airspace opacities, pulmo nary edema, pleural effusion or pneumothorax. Review of prior PET/CT which suggests the linear opacit y along the inferior margin of the left third rib. There is a pneumothorax in the prior chest radiogr aph were likely represents a small fin of bone along the inferior margin of the rib. The cardiomedias tinal silhouette is normal. IMPRESSION: 1. No pneumothorax or other acute cardiopulmonary disease post percutaneous biopsy. Left lower lobe n odule suspicious for primary bronchogenic carcinoma. Reviewed, dictated and finalized at location A. IMPRESSION: 1. No pneumothorax or other acute cardiopulmonary disease post percutaneous bio psy. Left lower lobe nodule suspicious for primary bronchogenic carcinoma.
--- OUTSIDE RECORDS SUMMARY | 2024-12-12 09:21 | XMS_ITS | CONTINUITY OF CARE DOCUMENT ---
Author Name josue salas Address Unknown Organization [facility] Address [address] [place] [address] Phone [phone] Care Team Providers Care Hospice Volunteer Name Role Phone josue salas Unavailable Unavailable INSURANCE PROVIDERS Payer name Policy type / Coverage type [place] red democrat [place] [facility] Commercial insurance [facility] [id number]
--- OUTSIDE RECORDS SUMMARY | 2024-12-12 09:21 | XMS_ITS | Clinical Summary ---
Author Organization [facility] [employer] Address [address] [place] [address] Care Team Providers Care Poultry Hatchery Supervisor Name Role Phone Unavailable Primary Care Provider Unavailabl e Source Comments [facility] [employer],non-owned Affiliates and Associated Physician Practices is amultiple site organization consisting of ambulatory clinics and hospital sitesin [place], [place], [place] and [place]. This disclosure is being madepursuant to the Care Everywhere program and may not contain all information available regarding this patient. Last updated 18.[employer] Allergies No known active allergies Medications * [...] complete this topic MENINGOCOCCAL (Group B) VACCINE SHARED DECISION-MAKING Aged Out No longer eligible based on patient's age to complete this topic MENINGOCOCCAL GROUPS A/C/Y/W VACCINE Aged Out No longer eligible based on patient's age to complete this topic Goals Goal Patient Goal Type Associated Problems Recent Progress Patient-Stated? Author Medication Management General On track( 021 1:41 PM CDT) Guadalupe Seay, RN Note: Expected end date: ongoing Interventions: Take all medications as prescribed Procedures Procedure Name Priority Date/Time Associated Diagnosis Comments COMP MET PANEL (EXTERNAL RESULT ENTRY) Routine 01/14/2021 HEPATITIS C RNA QUANTITATIVE Routine 10/27/2020 1:40 PM WHITE SUGAR BOILER Chronic hepatitis C without hepatic coma from Last 3 Months or Most Recently Relevant to Health Maintenance Results * (ABNORMAL) COMP MET PANEL (EXTERNAL RESULT ENTRY) (01/14/2021) Pathologist [facility] Glucose (EXTERNAL) 138(A) 70 - 99 mg/dL [...] HEPATITIS C RNA QUANTITATIVE (10/27/2020 1:40 PM WHITE SUGAR BOILER) [facility] Hepatitis C Virus Quant by PCR, Blood 3,531,631 (H) Not detected IU/mL 10/30/2020 11:09 AM WHITE SUGAR BOILER [facility] Hepatitis C RNA PCR, Interp Detected( A) Not Detected 10/30/2020 11:09 AM WHITE SUGAR BOILER [facility] Blood BLOOD SPECIMEN / Unknown Lab Venipuncture / Unknown 10/27/2020 1:40 PM WHITE SUGAR BOILER 10/27/2020 3:32 PM WHITE SUGAR BOILER Narrative [facility] - 10/30/2020 11:09 AM WHITE SUGAR BOILER The Hepatitis C viral (HCV) RNA analysis utilized a serum sample, real-time reverse cisco network engineer PCR, and is reported as Not Detected, [...] the isolation of HCV RNA with reverse cisco network engineer of genomic HCV RNA followed by real-time PCR in the presence of an unrelated RNA internal control. The internal control ensures that RNA is isolated, and that no general significant inhibitors of the RT-PCR process are present. The analysis was performed using a U.S. FDA approved test methodology ([employer] Real Time HCV). Yoli Olvera FRANCHISE SALES DIRECTOR-FINISHING MACHINE OPERATOR LAB - CHEMIS TRY ORDERABLES [facility] [address] [place] [address], [facility] [phone] from Last 3 Months or Most Recently Relevant to Health Maintenance
--- OUTSIDE RECORDS SUMMARY | 2024-12-12 09:21 | XMS_ITS | Referral Summary ---
Author Organization [facility] Address [address] [place] [address] Care Team Providers Care Food Service Supervisor Name Role Phone Dorian Tello MD Primary Care Provider Allergies Active Allergy Reactions Criticality Noted Date Comments Unclassified Drug Nausea & Vomiting Low 08/06/2022 Unknown antibiotic with UTI, thinks its Cipro or Keflex Medications blood sugar diagnostic (ONETOUCH ULTRA BLUE TEST STRIP [facility]) OneTouch Ultra Blue Test Strip TEST BLOOD [...] (07/19/2022): Added automatically from request for surgery [id number] Social History Tobacco Use Types Packs/Day Years [...] on file Legal Sex Female 1:06 AM HOOK PULLER Gender Identity Not on file Sexual Orientation Not on file Last Filed Vital Signs Vital Sign Reading Time Taken Comments Blood Pressure 143/70 08/24/2022 10:00 AM HOOK PULLER Pulse 81 08/24/2022 10:05 AM HOOK PULLER Temperature 36.2 C (97.2 F) 08/24/2022 10:05 AM HOOK PULLER Respiratory Rate 22 08/24/2022 10:0 5 AM HOOK PULLER Oxygen Saturation 96% 08/24/2022 10: 05 AM HOOK PULLER Inhaled Oxygen Concentration - - Weight 85.1 kg (187 lb 11.2 oz) 08/24/2022 5:54 AM HOOK PULLER Height 170.2 cm (5' 7 ) 08/24/2022 5:54 AM HOOK PULLER Body Mass Index 29.4 08/24/2022 5:54 AM HOOK PULLER Plan of Treatment Not on file Medical Devices Implanted Type Area Hide Examiner Device Identifier Shelf Expiration Date Model / Serial / Lot Titanium Left: Breast Description:Left breast steffen nium implant [employer] Set Implant Arthrex Fibertak Biceps Sterile Latex Free Ar-[id number] - [id number] Implanted:Qty: 1 on 08/24/2022 by Sony Banks MD at [facility] Right: Shoulder [employer] 03/25/2027 AR-3670 / / [id number] [employer] Swivelock C 4.75mm 19.1mm Closed Eyelet Vent Roosevelt Suture Ar-[id number] - [id number] Implanted:Qty: 1 on 08/24/2022 by Sony Banks MD at [facility] Right: Shoulder [employer] 06/25/2026 [id number] / / [id number] Insurance [facility] MEDIC[facility] IDPA Care Teams Food Service Supervisor Relationship Specialty Start Date End Date Dorian Tello MD [address] [facility] [address] [place] [address] PCP - General Internal Medicine 07/13/22
--- OUTSIDE RECORDS SUMMARY | 2024-12-12 09:21 | XMS_ITS | Data Portability ---
Author Organization [place] [facility] [employer], Main Office Address [address] [place] [address] Assessment Encounter Date Assessment Date Assessment LastModified [...] Nicotine cessation counseling provided for 3.5 minutes. [place] for quitting nicotine include getting ready, getting [...] Registering at [email or web address] Making a call to 5-796-INSJ-NOW ( ). A strong, clear, personalized message [...] failure or relapse. Patient can enroll in [facility]'s smoking cessation class through Sally Carlson RN [...] done as follows: Respiratory allergen panel for [facility] Serum IgE Serum total IgG, IgG1, IgG2, IgG3, IgG4 Uoxgu-2-crlsbuerfe n phenotype and level TB stimulated gamma [...] 1 week after PET/CT scan and PFT Not available 11/26/2024 11:21:05 12/05/2024 12/05/2024 Assessment: Nicotine smoke: 1 ppd 1976-present (quit 6 years in between) = 42 pack years LLL cavitary nodule, SUV 5.6 Hypogammaglobuline haroon (IgG2) Plan: The following were reviewed and explained to the patient: PET/CT 10/25/23 emphysema, GGO, AD atelectasis, up to 7 mm DA nodules and GGOs PET/CT 12/04/24 11 mm LLL nodule with maximum SUV of 5.[address] 03/02/23 emphysema, 5.5 mm LLL nodule, 6 mm RUL nodule Chest CT 09/12/23 up to 9 mm left lung nodules and GGOs Chest CT 10/30/24 emphysema, 13 mm LLL cavitary nodule, BUL scars and GGOs Lab data 11/26/24 low IgG2 Patient may need gammaglobulin infusions during times of infection. Nicotine cessation counseling provided. [place] for quitting nicotine include getting ready, getting [...] in Quit For Life program Registering at [email or web address] Making a call to 8-033-XYFN-NOW ( ). A strong, clear, personalized message [...] failure or relapse. Patient can enroll in [facility]'s smoking cessation class through Sally Carlson RN [...] at 3 months, PET/CT, or tissue sampling Referred for CT-guided LLL nodule biopsy. Cough/Dyspnea workup will be done as follows: Complete pulmonary function testing (PFT) 12/13/24 Adherence to therapy is advocated. Nonadherence may [...] for further management. Follow-up: 1 week after LLL nodule biopsy and PFT Not available 12/05/2024 09:29:23 Plan of Treatment Reminders Order Date Submit Date Provider Last Modified By Organization Details Last Modified Time Details Appointments None recorded. Lab alpha-1-ant itrypsin (aat) phenotype, serum 2024 025 [facility], [address] [place], [address], 5 08:23:03 BNP (B-type natriuretic peptide), serum or plasma 2024 025 [facility], [address] [place], [address], 5 14:47:29 ige, total, serum 2024 025 [facility], [address] [place], [address], 5 04:05:11 tb (M tuberculosi s), ifn-gamma yodit, blood 2024 025 [facility], [address] [place], [address], 5 04:05:11 igg subclasses 1+2+3+4, serum 2024 025 [facility], [address] [place], [address], 5 04:05:11 respiratory allergen panel, [facility] A, serum 2024 025 [facility], [address] [place] [address], [address], 5 04:05:11 respiratory allergen panel - [facility] b 2024 025 [facility], [address] [place], [address], 5 04:05:12 eosinophils , quant, blood 2024 025 [facility], [address] [place] [address], [address], 5 04:05:12 lipid panel, serum [id number] [facility], [address] [place] [address], [address], [address], 4 16:06:44 HbA1c (hemoglobin A1c), blood [id number] [facility], [address] [place] [address], [address], [address], 4 16:06:44 microalbumi n, urine [id number] [facility], [facility] [address], [place], [address], 4 16:06:45 magnesium, serum or plasma [id number] [facility], [address] [facility] [address], [place], [address], 4 16:06:44 vitamin B12, serum [id number] [facility], [address] [facility] [address] [facility], [facility], [place], [address], 4 16:06:44 CBC w/ auto diff [id number] [facility], [address] [address], [facility], [address], 4 16:06:44 CMP, serum or plasma [id number] [facility], [address] [address], [facility], [place], [address], 4 16:06:44 lipid panel, serum [id number] [facility], [address] [place] [address], [address], [address], 4 12:15:01 CMP, serum or plasma [id number] [facility], [address] [address], [facility], [place], [address], 4 12:15:01 TSH, serum or plasma [id number] [facility], [address] [place] [address], [address], [address], 4 12:15:02 T4, free, serum [id number] [facility], [address] [place] [address], [facility], [place], [address], 4 12:15:02 vitamin B12, serum [id number] [facility], [address] [facility] [address] [facility], [facility], [place], [address], 4 12:15:02 magnesium, serum or plasma [address] [facility], [address] [facility] [address], [facility], [place], [address], 4 12:15:02 HbA1c (hemoglobin A1c), blood [id number] [facility], [address] [facility] [address], [facility], [place], [address], 4 12:15:02 microalbumi n, urine [id number] [facility], [address] [facility] [address], [facility], [place], [address], 4 12:15:02 CBC w/ auto diff [id number] [facility], [address] [address], [facility], [place], [address], 4 12:15:01 drug screen, urine 2023 024 [id number] [facility], [address], [place], [address], 4 12:15:03 vitamin B12, serum [id number] [facility] [address] [facility], [address] [place], [address], 3 10:07:54 magnesium, serum or plasma [id number] [facility] [address] [facility], [address] [place], [address], 3 10:07:54 HbA1c (hemoglobin A1c), blood 2022 023 [id number] [facility], [address] [place], [address], 3 10:07:54 CBC w/ auto diff 2022 023 [facility], [address] [place], [address], 3 10:07:53 CMP, serum or plasma 2022 023 [id number] [facility], [address] [place], [address], 3 10:07:54 lipid panel, serum 2022 023 [facility], [address] [place], [address], 10:07:54 Referral None recorded. Procedures biopsy, lung, ct guidance (PROC) - 11 mm LLL pulmonary nodule with maximum SUV of 5.6 2024 025 [facility] (Imaging), [address] [place] [address] [place] [address], [address], 5 04:04:45 Surgeries None recorded. Imaging PET-CT, skull base to mid-thigh scan - Updated order for 12/04/2024. 2024 025 [facility], [address] [place] [address], [address], 5 18:08:31 Medication Orders None recorded. Patient TargetsNo targets recorded. Patient Instructions Encounter Date Encounter Id Patient Instructions Last Modified By Organization Details Last Modified Time 08/22/2023 [id number] dementia rating scale-2* [email or web address] Not available 08/22/2023 16:57:44 alcohol misuse* [email or web address] Not available 08/22/2023 16:57:45 depression screening* [email or web address] Not available 08/22/2023 16:57:44 multi-dimensiona l health assessment questionnaire* [email or web address] Not available 08/22/2023 16:57:44 Personalized Hea lt Plan and Screening Recommendations Advance Directives [...] I have no recommendations Depression Screening: Negative [email or web address] Not available 08/22/2023 16:47:53 Medicare wellnes s [...] Next Appt: 4 Months Approximate Date: 12/20/2023 [email or web address] Not available 08/22/2023 16:57:15 02/13/2024 [id number] Hypertension, hyperlipidemia, type 2 diabetes, GERD as [...] recognize, using context, where substitutions have occurred. [email or web address] Not available 02/13/2024 16:51:27 08/20/2024 [id number] Follow-up for essential hypertension, GERD, hyperlipidemia, type [...] Created: Dorian Tello M.D. 08.20.2024 03:38 PM [email or web address] Not available 08/20/2024 16:38:23 11/26/2024 [id number] complete PFT w/ post bronchodilator spirometry* - Please call patient to schedule. NPAN [id number] per payor website. [email or web address] Not available 11/27/2024 08:15:23 12/05/2024 [id number] complete PFT w/ post bronchodilator spirometry* - Please call patient to schedule. NPAN [id number] per payor website. [email or web address] Not available 12/05/2024 10:26:18 Reason for Referral None Reported. Results Created Date Observation Date Name Description Value Unit Range Abnormal Flag Note LastModifiedBy Organization Detail LastModifiedTime 09/12/2009/12/2023 CBC/C OMPLE TE BLD COUNT W/DIF F white blood cells 11.2 x10'3 /uL 4.2-10 .8 high Not Available [facility] (Lab) [address] [place], [address], 09/12/2023 11:47:08 09/12/20 23 09/12/2023 CBC/C OMPLE TE BLD COUNT W/DIF F red blood cells 4.25 x10'6 /uL 3.80-5 .20 Not Available [facility] (Lab) [address] [place], [address], 09/12/2023 11:47:08 09/12/20 23 09/12/2023 CBC/C OMPLE TE BLD COUNT W/DIF F hemoglobin 13.9 g/dL 12.0-1 5.6 Not Available [facility] (Lab) [address] [place], [address], 09/12/2023 11:47:08 09/12/20 23 09/12/2023 CBC/C OMPLE TE BLD COUNT W/DIF F hematocrit 41.9 % 35.7-4 5.7 Not Available [facility] (Lab) [address] [place], [address], 09/12/2023 11:47:08 09/12/20 23 09/12/2023 CBC/C OMPLE TE BLD COUNT W/DIF F mean red cell volume 98.6 fL 82.0-9 9.0 Not Available [facility] (Lab) [address] [place], [address], 09/12/2023 11:47:08 09/12/20 23 09/12/2023 CBC/C OMPLE TE BLD COUNT W/DIF F mean red cell hemoglobin 32.7 pg 27.0-3 3.0 Not Available [facility] (Lab) [address] [place], [address], 09/12/2023 11:47:08 09/12/20 23 09/12/2023 CBC/C OMPLE TE BLD COUNT W/DIF F mean RBC HGB concentratio n 33.2 g/dL 31.0-3 6.0 Not Available [facility] (Lab) [address] [place], [address], 09/12/2023 11:47:08 09/12/20 23 09/12/2023 CBC/C OMPLE TE BLD COUNT W/DIF F red cell distribution width 12.8 % 11.8-1 5.5 Not Available [facility] (Lab) [address] [place], [address], 09/12/2023 11:47:08 09/12/20 23 09/12/2023 CBC/C OMPLE TE BLD COUNT W/DIF F platelets 295 x10'3 /uL 150-40 0 Not Available [facility] (Lab) [address] [place], [address], 09/12/2023 11:47:08 09/12/20 23 09/12/2023 CBC/C OMPLE TE BLD COUNT W/DIF F mean platelet volume 10.7 fL 9.0-12 .4 Not Available [facility] (Lab) [address] [place], [address], 09/12/2023 11:47:08 09/12/20 23 09/12/2023 CBC/C OMPLE TE BLD COUNT W/DIF F neutrophils 61.3 % 39.0-7 2.0 Not Available [facility] (Lab) [address] [place], [address], 09/12/2023 11:47:08 09/12/2009/12/2023 CBC/C OMPLE TE BLD COUNT W/DIF F lymphocytes 27.8 % 16.0-4 7.0 Not Available [facility] (Lab) [address] [place], [address], 09/12/2023 11:47:08 09/12/20 23 09/12/2023 CBC/C OMPLE TE BLD COUNT W/DIF F monocytes 6.3 % 5.0-12 .0 Not Available [facility] (Lab) [address] [place], [address], 09/12/2023 11:47:08 09/12/20 23 09/12/2023 CBC/C OMPLE TE BLD COUNT W/DIF F eosinophils 3.4 % 1.0-7. 0 Not Available [facility] (Lab) [address] [place], [address], 09/12/2023 11:47:08 09/12/20 23 09/12/2023 CBC/C OMPLE TE BLD COUNT W/DIF F basophils 0.6 % 0.0-2. 0 Not Available [facility] (Lab) [address] [place], [address], 09/12/2023 11:47:08 09/12/20 23 09/12/2023 CBC/C OMPLE TE BLD COUNT W/DIF F immature granulocytes 0.6 % 0.00-0 .50 high Not Available [facility] (Lab) [address] [place], [address], 09/12/2023 11:47:08 09/12/20 23 09/12/2023 CBC/C OMPLE TE BLD COUNT W/DIF F neutrophils, absolute count 6.88 x10'3 /uL 1.5-8. 0 Not Available [facility] (Lab) [address] [place], [address], 09/12/2023 11:47:08 09/12/20 23 09/12/2023 CBC/C OMPLE TE BLD COUNT W/DIF F lymphocytes, absolute count 3.13 x10'3 /uL 1.07-3 .43 Not Available [facility] (Lab) [address] [place], [address], 09/12/2023 11:47:08 09/12/20 23 09/12/2023 CBC/C OMPLE TE BLD COUNT W/DIF F monocytes, absolute count 0.71 x10'3 /uL 0.29-0 .99 Not Available [facility] (Lab) [address] [place], [address], 09/12/2023 11:47:08 09/12/20 23 09/12/2023 CBC/C OMPLE TE BLD COUNT W/DIF F eosinophils, absolute count 0.38 x10'3 /uL 0.02-0 .53 Not Available [facility] (Lab) [address] [place], [address], 09/12/2023 11:47:08 09/12/20 23 09/12/2023 CBC/C OMPLE TE BLD COUNT W/DIF F basophils, absolute count 0.07 x10'3 /uL 0.01-0 .08 Not Available [facility] (Lab) [address] [place], [address], 09/12/2023 11:47:08 09/12/20 23 09/12/2023 CBC/C OMPLE TE BLD COUNT W/DIF F immature granulocytes ,absolute 0.07 x10'3 /uL 0.00-0 .05 high Not Available [facility] (Lab) [address] [place], [address], 09/12/2023 11:47:08 09/12/20 23 09/12/2023 CBC/C OMPLE TE BLD COUNT W/DIF F nucleated red blood cells 0.0 % -0 Not Available [facility] (Lab) [address] [place], [address], 09/12/2023 11:47:08 09/12/20 23 09/12/2023 CBC/C OMPLE TE BLD COUNT W/DIF F NRBC# 0.00 x10'3 /uL Not Available [facility] (Lab) [address] [place], [address], 09/12/2023 11:47:08 09/12/20 23 09/12/2023 COMPR EHENS PILI METAB OLIC PANEL sodium 141 mmol/ L 137-14 5 Not Available [facility] (Lab) [address] [place], [address], 09/12/2023 14:30:17 09/12/20 23 09/12/2023 COMPR EHENS PILI METAB OLIC PANEL potassium 3.7 mmol/ L 3.5-5. 1 Not Available [facility] (Lab) [address] [place], [address], 09/12/2023 14:30:17 09/12/20 23 09/12/2023 COMPR EHENS PILI METAB OLIC PANEL chloride 107 mmol/ L 98-107 Not Available [facility] (Lab) [address] [place], [address], 09/12/2023 14:30:17 09/12/20 23 09/12/2023 COMPR EHENS PILI METAB OLIC PANEL carbon dioxide 25 mmol/ L 22-30 Not Available [facility] (Lab) [address] [place], [address], 09/12/2023 14:30:17 09/12/20 23 09/12/2023 COMPR EHENS PILI METAB OLIC PANEL anion gap 12.7 mmol/ L 14-22 low Not Available [facility] (Lab) [address] [place], [address], 09/12/2023 14:30:17 09/12/20 23 09/12/2023 COMPR EHENS PILI METAB OLIC PANEL glucose 93 mg/dL 70-99 Not Available [facility] (Lab) [address] [place], [address], 09/12/2023 14:30:17 09/12/20 23 09/12/2023 COMPR EHENS PILI METAB OLIC PANEL BUN 13 mg/dL 8-19 Not Available [facility] (Lab) [address] [place], [address], 09/12/2023 14:30:17 09/12/20 23 09/12/2023 COMPR EHENS PILI METAB OLIC PANEL creatinine 1.06 mg/dL 0.66-1 .25 Not Available [facility] (Lab) [address] [place], [address], 09/12/2023 14:30:17 09/12/20 23 09/12/2023 COMPR EHENS PILI METAB OLIC PANEL GFR 52 Refer ence Range : [place] ge GFR Healt hy Adult : >60 [...] or ethni c subgr oups, such as Hischarito nics. Outsi de the valid ated alexandra [...] calcu lator is avail able on the [facility] websi te: https :[email or web address] machado.veronica pinon.o rg/pr ofess ional s/kdo qi/gf r_cal culat or Not Available [facility] (Lab) [address] [place], [address], 09/12/2023 14:30:17 09/12/20 23 09/12/2023 COMPR EHENS PILI METAB OLIC PANEL alkaline phosphatase 51 U/L 38-126 Not Available [facility] (Lab) [address] [place], [address], 09/12/2023 14:30:17 09/12/20 23 09/12/2023 COMPR EHENS PILI METAB OLIC PANEL alanine aminotransfe rase 14 U/L 0-35 Not Available [facility] (Lab) [address] [place], [address], 09/12/2023 14:30:17 09/12/20 23 09/12/2023 COMPR EHENS PILI METAB OLIC PANEL aspartate aminotransfe rase 20 U/L 15-37 Not Available [facility] (Lab) [address] [place], [address], 09/12/2023 14:30:17 09/12/20 23 09/12/2023 COMPR EHENS PILI METAB OLIC PANEL bilirubin, total 0.40 mg/dL 0.20-1 .30 Not Available [facility] (Lab) [address] [place], [address], 09/12/2023 14:30:17 09/12/20 23 09/12/2023 COMPR EHENS PILI METAB OLIC PANEL calcium 9.4 mg/dL 8.4-10 .2 Not Available [facility] (Lab) [address] [place], [address], 09/12/2023 14:30:17 09/12/20 23 09/12/2023 COMPR EHENS PILI METAB OLIC PANEL total protein 6.5 g/dL 6.3-8. 2 Not Available [facility] (Lab) [address] [place], [address], 09/12/2023 14:30:17 09/12/20 23 09/12/2023 COMPR EHENS PILI METAB OLIC PANEL albumin 3.8 g/dL 3.0-4. 4 Not Available [facility] (Lab) [address] [place], [address], 09/12/2023 14:30:17 09/12/20 23 09/12/2023 COMPR EHENS PILI METAB OLIC PANEL globulin 2.7 g/dL 2.6-4. 2 Not Available [facility] (Lab) [address] [place], [address], 09/12/2023 14:30:17 09/12/20 23 09/12/2023 COMPR EHENS PILI METAB OLIC PANEL A/G ratio 1.4 ratio 1.0-2. 0 Not Available [facility] (Lab) [address] [place], [address], 09/12/2023 14:30:17 09/12/20 23 09/12/2023 LIPID PANEL cholesterol 105 mg/dL 140-19 9 low NIH MAYDA NSUS RECOM MENDA TION FOR JOSE STERO L: ADULT CHILD LOW RISK: <200 <170 BORDE RLINE : <200- 239 ----- HIGH RISK: >240 >200 Not Available [facility] (Lab) [address] [place], [address], 09/12/2023 14:30:19 09/12/20 23 09/12/2023 LIPID PANEL triglyceride s 91 mg/dL 0-150 NIH MAYDA NSUS REPOR T RECOM MENDA TION FOR TRIGL YCERI DAJA: ADULT CHILD LOW RISK: <150 ----- BODER LINE: 150-1 99 ----- HIGH RISK: >200 ----- Not Available [facility] (Lab) [address] [place], [address], 09/12/2023 14:30:19 09/12/20 23 09/12/2023 LIPID PANEL HDL cholesterol 33 mg/dL 40- low Not Available [facility] (Lab) [address] [place], [address], 09/12/2023 14:30:19 09/12/20 23 09/12/2023 LIPID PANEL [...] LDL RESUL T WILL NOT BE REPOR SHAHZAD. Not Available [facility] (Lab) [address] [place], [address], 09/12/2023 14:30:19 09/12/20 23 09/12/2023 MAGNE SIUM magnesium 1.2 mg/dL 1.6-2. 3 low Not Available [facility] (Lab) [address] [place], [address], 09/12/2023 14:30:21 09/12/20 23 09/12/2023 VITAM IN B12 (JO MP ) vb12 665 pg/mL 239-93 1 Not Available [facility] (Lab) [address] [place], [address], 09/12/2023 15:26:12 09/12/20 23 09/12/2023 HEMOG LOBIN A1C HA1C 5.5 % 4.0-6. 0 Diabe alex Scree martin Crite [place]: <5.7% Consi stent with absen ce of diabe alex 5.7-6 .4% Consi stent with incre ased risk for diabe alex (pred iabet es) >OR=6 .5% Consi stent with diabe alex REFER ENCE: Diabe alex Care 2016, 39(Kelley ppl.1 ):s13 -s22 Not Available [facility] (Lab) [address] [place], [address], 09/12/2023 20:37:26 11/09/19 24 11/09/2023 MAGNE SIUM magnesium 2.0 mg/dL 1.6-2. 3 Not Available [facility] (Lab) [address] [place], [address], 11/09/2023 15:56:13 02/29/20 24 02/29/2024 CBC/C OMPLE TE BLD COUNT W/DIF F white blood cells 9.9 x10'3 /uL 4.2-10 .8 Not Available [facility] (Lab) [address] [place], [address], 02/29/2024 12:24:17 02/29/20 24 02/29/2024 CBC/C OMPLE TE BLD COUNT W/DIF F red blood cells 4.12 x10'6 /uL 3.80-5 .20 Not Available [facility] (Lab) [address] [place], [address], 02/29/2024 12:24:17 02/29/20 24 02/29/2024 CBC/C OMPLE TE BLD COUNT W/DIF F hemoglobin 13.1 g/dL 12.0-1 5.6 Not Available [facility] (Lab) [address] [place], [address], 02/29/2024 12:24:17 02/29/20 24 02/29/2024 CBC/C OMPLE TE BLD COUNT W/DIF F hematocrit 39.7 % 35.7-4 5.7 Not Available [facility] (Lab) [address] [place], [address], 02/29/2024 12:24:17 02/29/20 24 02/29/2024 CBC/C OMPLE TE BLD COUNT W/DIF F mean red cell volume 96.4 fL 82.0-9 9.0 Not Available [facility] (Lab) [address] [place], [address], 02/29/2024 12:24:17 02/29/20 24 02/29/2024 CBC/C OMPLE TE BLD COUNT W/DIF F mean red cell hemoglobin 31.8 pg 27.0-3 3.0 Not Available [facility] (Lab) [address] [place], [address], 02/29/2024 12:24:17 02/29/20 24 02/29/2024 CBC/C OMPLE TE BLD COUNT W/DIF F mean RBC HGB concentratio n 33.0 g/dL 31.0-3 6.0 Not Available [facility] (Lab) [address] [place], [address], 02/29/2024 12:24:17 02/29/20 24 02/29/2024 CBC/C OMPLE TE BLD COUNT W/DIF F red cell distribution width 12.8 % 11.8-1 5.5 Not Available [facility] (Lab) [address] [place], [address], 02/29/2024 12:24:17 02/29/20 24 02/29/2024 CBC/C OMPLE TE BLD COUNT W/DIF F platelets 315 x10'3 /uL 150-40 0 Not Available [facility] (Lab) [address] [place], [address], 02/29/2024 12:24:17 02/29/20 24 02/29/2024 CBC/C OMPLE TE BLD COUNT W/DIF F mean platelet volume 11.1 fL 9.0-12 .4 Not Available [facility] (Lab) [address] [place], [address], 02/29/2024 12:24:17 02/29/20 24 02/29/2024 CBC/C OMPLE TE BLD COUNT W/DIF F neutrophils 56.3 % 39.0-7 2.0 Not Available [facility] (Lab) [address] [place], [address], 02/29/2024 12:24:17 02/29/20 24 02/29/2024 CBC/C OMPLE TE BLD COUNT W/DIF F lymphocytes 31.1 % 16.0-4 7.0 Not Available [facility] (Lab) [address] [place], [address], 02/29/2024 12:24:17 02/29/20 24 02/29/2024 CBC/C OMPLE TE BLD COUNT W/DIF F monocytes 7.4 % 5.0-12 .0 Not Available [facility] (Lab) [address] [place], [address], 02/29/2024 12:24:17 02/29/20 24 02/29/2024 CBC/C OMPLE TE BLD COUNT W/DIF F eosinophils 4.0 % 1.0-7. 0 Not Available [facility] (Lab) [address] [place], [address], 02/29/2024 12:24:17 02/29/20 24 02/29/2024 CBC/C OMPLE TE BLD COUNT W/DIF F basophils 0.7 % 0.0-2. 0 Not Available [facility] (Lab) [address] [place], [address], 02/29/2024 12:24:17 02/29/20 24 02/29/2024 CBC/C OMPLE TE BLD COUNT W/DIF F immature granulocytes 0.5 % 0.00-0 .50 Not Available [facility] (Lab) [address] [place], [address], 02/29/2024 12:24:17 02/29/20 24 02/29/2024 CBC/C OMPLE TE BLD COUNT W/DIF F neutrophils, absolute count 5.59 x10'3 /uL 1.5-8. 0 Not Available [facility] [facility] (Lab) [address] [place], [address], 02/29/2024 12:24:17 02/29/20 24 02/29/2024 CBC/C OMPLE TE BLD COUNT W/DIF F lymphocytes, absolute count 3.09 x10'3 /uL 1.07-3 .43 Not Available [facility] (Lab) [address] [place], [address], 02/29/2024 12:24:17 02/29/20 24 02/29/2024 CBC/C OMPLE TE BLD COUNT W/DIF F monocytes, absolute count 0.73 x10'3 /uL 0.29-0 .99 Not Available [facility] (Lab) [address] [place], [address], 02/29/2024 12:24:17 02/29/20 24 02/29/2024 CBC/C OMPLE TE BLD COUNT W/DIF F eosinophils, absolute count 0.40 x10'3 /uL 0.02-0 .53 Not Available [facility] (Lab) [address] [place], [address], 02/29/2024 12:24:17 02/29/20 24 02/29/2024 CBC/C OMPLE TE BLD COUNT W/DIF F basophils, absolute count 0.07 x10'3 /uL 0.01-0 .08 Not Available [facility] (Lab) [address] [place], [address], 02/29/2024 12:24:17 02/29/20 24 02/29/2024 CBC/C OMPLE TE BLD COUNT W/DIF F immature granulocytes ,absolute 0.05 x10'3 /uL 0.00-0 .05 Not Available [facility] (Lab) [address] [place], [address], 02/29/2024 12:24:17 02/29/20 24 02/29/2024 CBC/C OMPLE TE BLD COUNT W/DIF F nucleated red blood cells 0.0 % -0 Not Available [facility] (Lab) [address] [place], [address], 02/29/2024 12:24:17 02/29/20 24 02/29/2024 CBC/C OMPLE TE BLD COUNT W/DIF F NRBC# 0.00 x10'3 /uL Not Available [facility] (Lab) [address] [place], [address], 02/29/2024 12:24:17 02/29/20 24 02/29/2024 URINE DRUG SCREE N amphetamines NEGATI VE Amphe tamin e cut off 500 ng/mL Not Available [facility] (Lab) [address] [place], [address], 02/29/2024 12:40:38 02/29/20 24 02/29/2024 URINE DRUG SCREE N barbiturates NEGATI VE Beulah turat e cut off 200 ng/mL Not Available [facility] (Lab) [address] [place], [address], 02/29/2024 12:40:38 02/29/20 24 02/29/2024 URINE DRUG SCREE N benzodiazepi nia NEGATI VE Benzo diaze pine cut off 200 ng/mL Not Available [facility] (Lab) [address] [place], [address], 02/29/2024 12:40:38 02/29/20 24 02/29/2024 URINE DRUG SCREE N cocaine NEGATI VE Cocai ne metab olite cut off 150 ng/mL Not Available [facility] (Lab) [address] [place], [address], 02/29/2024 12:40:38 02/29/20 24 02/29/2024 URINE DRUG SCREE N fentanyl NEGATI VE Fenta nyl cut off 1.0 ng/mL Not Available [facility] (Lab) [address] [place], [address], 02/29/2024 12:40:38 02/29/20 24 02/29/2024 URINE DRUG SCREE N methadone NEGATI VE Metha done cutof f 300 ng/mL . Not Available [facility] (Lab) [address] [place], [address], 02/29/2024 12:40:38 02/29/20 24 02/29/2024 URINE DRUG SCREE N opiates POSITI VE abnormal Opiat e cut off 300 ng/mL Not Available [facility] (Lab) [address] [place], [address], 02/29/2024 12:40:38 02/29/20 24 02/29/2024 URINE DRUG SCREE N oxycodone NEGATI VE Oxyco done cut off 100 ng/mL Not Available [facility] (Lab) [address] [place], [address], 02/29/2024 12:40:38 02/29/20 24 02/29/2024 URINE DRUG SCREE N phencyclidin e NEGATI VE PCP cut off 25 ng/mL Not Available [facility] (Lab) [address] [place], [address], 02/29/2024 12:40:38 02/29/20 24 02/29/2024 URINE DRUG SCREE N marijuana POSITI VE abnormal Marij uana cut off 50 ng/mL ANY POSIT PILI RESUL TS REPOR SHAHZAD ARE UNCON FIRME D, AND SUCH, SHOUL D BE USED FOR MEDIC AL TREAT MENT PURPO SES ONLY. Not Available [facility] (Lab) [address] [place], [address], 02/29/2024 12:40:38 02/29/20 24 02/29/2024 MICRO ALBUM IN RANDO M URINE microalbumin , urine 33.5 mg/L 0.0-16 .6 high Not Available [facility] (Lab) [address] [place], [address], 02/29/2024 12:41:03 02/29/20 24 02/29/2024 LIPID PANEL cholesterol 105 mg/dL 140-19 9 low NIH MAYDA NSUS RECOM MENDA TION FOR JOSE STERO L: ADULT CHILD LOW RISK: <200 <170 BORDE RLINE : <200- 239 ----- HIGH RISK: >240 >200 Not Available [facility] (Lab) [address] [place], [address], 02/29/2024 13:07:46 02/29/2002/29/2024 LIPID PANEL triglyceride s 130 mg/dL 0-150 NIH MAYDA NSUS REPOR T RECOM MENDA TION FOR TRIGL YCERI DAJA: ADULT CHILD LOW RISK: <150 ----- BODER LINE: 150-1 99 ----- HIGH RISK: >200 ----- Not Available [facility] (Lab) [address] [place], [address], 02/29/2024 13:07:46 02/29/20 24 02/29/2024 LIPID PANEL HDL cholesterol 40 mg/dL 40- Not Available [facility] (Lab) [address] [place], [address], 02/29/2024 13:07:46 02/29/20 24 02/29/2024 LIPID PANEL [...] LDL RESUL T WILL NOT BE REPOR SHAHZAD. Not Available [facility] (Lab) [address] [place], [address], 02/29/2024 13:07:46 02/29/20 24 02/29/2024 COMPR EHENS PILI METAB OLIC PANEL sodium 137 mmol/ L 137-14 5 Not Available [facility] (Lab) [address] [place], [address], 02/29/2024 13:08:03 02/29/20 24 02/29/2024 COMPR EHENS PILI METAB OLIC PANEL potassium 4.3 mmol/ L 3.5-5. 1 Not Available [facility] (Lab) [address] [place], [address], 02/29/2024 13:08:03 02/29/20 24 02/29/2024 COMPR EHENS PILI METAB OLIC PANEL chloride 108 mmol/ L 98-107 high Not Available [facility] (Lab) [address] [place], [address], 02/29/2024 13:08:03 02/29/20 24 02/29/2024 COMPR EHENS PILI METAB OLIC PANEL carbon dioxide 24 mmol/ L 22-30 Not Available [facility] (Lab) [address] [place], [address], 02/29/2024 13:08:03 02/29/20 24 02/29/2024 COMPR EHENS PILI METAB OLIC PANEL anion gap 9.3 mmol/ L 14-22 low Not Available [facility] (Lab) [address] [place], [address], 02/29/2024 13:08:03 02/29/20 24 02/29/2024 COMPR EHENS PILI METAB OLIC PANEL glucose 107 mg/dL 70-99 high Not Available [facility] (Lab) [address] [place], [address], 02/29/2024 13:08:03 02/29/20 24 02/29/2024 COMPR EHENS PILI METAB OLIC PANEL BUN 20 mg/dL 8-19 high Not Available [facility] (Lab) [address] [place], [address], 02/29/2024 13:08:03 02/29/20 24 02/29/2024 COMPR EHENS PILI METAB OLIC PANEL creatinine 1.32 mg/dL 0.66-1 .25 high Not Available [facility] (Lab) [address] [place], [address], 02/29/2024 13:08:03 02/29/20 24 02/29/2024 COMPR EHENS PILI METAB OLIC PANEL GFR 40 Refer ence Range : [place] ge GFR Healt hy Adult : >60 [...] calcu lator is avail able on the [facility] websi te: [email or web address] :[email or web address] [email or web address] rg/pr ofess ional s/kdo qi/gf r_cal culat or Not Available [facility] (Lab) [address] [place], [address], 02/29/2024 13:08:03 02/29/20 24 02/29/2024 COMPR EHENS PILI METAB OLIC PANEL alkaline phosphatase 58 U/L 38-126 Not Available [facility] (Lab) [address] [place], [address], 02/29/2024 13:08:03 02/29/20 24 02/29/2024 COMPR EHENS PILI METAB OLIC PANEL alanine aminotransfe rase 17 U/L 0-35 Not Available [facility] (Lab) [address] [place], [address], 02/29/2024 13:08:03 02/29/20 24 02/29/2024 COMPR EHENS PILI METAB OLIC PANEL aspartate aminotransfe rase 24 U/L 15-37 Not Available [facility] (Lab) [address] [place], [address], 02/29/2024 13:08:03 02/29/20 24 02/29/2024 COMPR EHENS PILI METAB OLIC PANEL bilirubin, total 0.50 mg/dL 0.20-1 .30 Not Available [facility] (Lab) [address] [place], [address], 02/29/2024 13:08:03 02/29/20 24 02/29/2024 COMPR EHENS PILI METAB OLIC PANEL calcium 9.6 mg/dL 8.4-10 .2 Not Available [facility] (Lab) [address] [place], [address], 02/29/2024 13:08:03 02/29/20 24 02/29/2024 COMPR EHENS PILI METAB OLIC PANEL total protein 6.2 g/dL 6.3-8. 2 low Not Available [facility] (Lab) [address] [place], [address], 02/29/2024 13:08:03 02/29/20 24 02/29/2024 COMPR EHENS PILI METAB OLIC PANEL albumin 3.9 g/dL 3.0-4. 4 Not Available [facility] (Lab) [address] [place], [address], 02/29/2024 13:08:03 02/29/20 24 02/29/2024 COMPR EHENS PILI METAB OLIC PANEL globulin 2.3 g/dL 2.6-4. 2 low Not Available [facility] (Lab) [address] [place], [address], 02/29/2024 13:08:03 02/29/20 24 02/29/2024 COMPR EHENS PILI METAB OLIC PANEL A/G ratio 1.7 ratio 1.0-2. 0 Not Available [facility] (Lab) [address] [place], [address], 02/29/2024 13:08:03 02/29/20 24 02/29/2024 MAGNE SIUM magnesium 1.5 mg/dL 1.6-2. 3 low Not Available [facility] (Lab) [address] [place], [address], 02/29/2024 13:08:07 02/29/20 24 02/29/2024 T4 FREE free T4 1.18 NG/dL 0.78-2 .19 Not Available [facility] (Lab) [address] [place], [address], 02/29/2024 13:38:37 02/29/20 24 02/29/2024 TSH thyroid-stim ulating hormone 1.590 uIU/m L 0.465- 4.680 Not Available [facility] (Lab) [address] [place], [address], 02/29/2024 13:39:12 02/29/20 24 02/29/2024 VITAM IN B12 (JO MP ) vb12 352 pg/mL 239-93 1 Not Available [facility] (Lab) [address] [place], [address], 02/29/2024 14:38:15 02/29/20 24 02/29/2024 HEMOG LOBIN A1C HA1C 5.7 % 4.0-6. 0 Diabe alex Scree martin Crite madina: <5.7% Consi stent with absen ce of diabe alex 5.7-6 .4% Consi stent with incre ased risk for diabe alex (pred iabet es) >OR=6 .5% Consi stent with diabe alex REFER ENCE: Diabe alex Care 2016, 39(Kelley ppl.1 ):s13 -s22 Not Available [facility] (Lab) [address] [place], [address], 02/29/2024 16:15:03 09/12/20 23 09/12/2023 CT, chest , w/o contr ast [facility] [address] [place], [place] [address] Patien t Name: JAQUELINE MACIAS ion #: [id number] Sex: F : 1954 3 Dictat ed By: Abigail Jones Attend ing Physic abiel: KALLIE TELLO CE Orderi ng Physic abiel: KALLIE TELLO CE Exam Date: 2022 09:48 AM Exam Name: CT CHEST WO Admitt ing Diagno sis(es ): Proced ure: CT CHEST WO Reason for study/ Clinic al Histor y: Evalua te pulmon fadumo nodule s. 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 Page 1 [facility] [address] [address] [phone] Patien t Name: JAQUELINE MACIAS Access ion #: [id number] Sex: F : 1954 3 Dictat [...] these dose optimi zation techni ques: automa shahzad exposu re contro l? mA and/or kV adjust ment per patien t size (inclu daja target ed exams where dose is matche d to clinic al indica tion)? or iterat pili recons tructi on. Electr onical ly Signed by: Abigail Jones at 2022 11:16: 17 AM Page 2 [facility] (Imaging) [address] [place], [address], 09/12/2023 13:33:07 09/12/20 23 09/12/2023 DEXA, axial skele ton [facility] [address] [place] [address] Patien t Name: JAQUELINE MACIAS Access ion #: [id number] Sex: F : 1954 3 Dictat ed By: Abigail Jones Attend ing Physic abiel: KALLIE TELLO CE Orderi Physic abiel: KALLIE TELLO CE Exam [...] probab ility calcul ated for an untrea shahzad patien t. Fractu re probab ility may be lower if the patien t has receiv ed treatm ent. T-scor e: compar vicenta by standdawood bustillo deviat ion (SD) to a young adult [...] e WHO criter ia 4) Page 1 [facility] [address] [facility] [place] [address] [phone] Patien t Name: JAQUELINE MACIAS Access ion #: [id number] Sex: F : 1954 3 Dictat [...] at 2022 11:18: 21 AM Page [address] (Imaging) [address] [place], [address], 09/12/2023 13:33:27 10/26/19 24 10/25/2023 PET-C T, skull base to mid-t high scan No observ ation record ed. [address] [facility] [address], [address], 10/26/2023 16:20:44 10/10/19 25 10/09/2024 scree martin breas t nichol, bilat [facility] [address] [place] [address] Patijessica t Name: JAQUELINE MACIAS Access ion #: [id number] Sex: F : 1954 8 Locati on: RAD Attend ing Physic abiel: KALLIE TELLO Orderi ng Physic abiel: KALLIE TELLO Exam Date: 025 8:13 AM Exam Name: MG SCRN BREAST NICHOL BILAT Admitt ing Diagno sis(es ): MAMMOG MIGUEL REPORT - FINAL EXAM: MG SCRN BREAST NICHOL BILAT HISTOR Y: screen ing mammog seth 69-yea r-old female with no curren t breast compla ints. The patien t has a histor y of left breast benign biopsy in 1979. The patien t has a histor y of left breast benign cyst aspira tion in 2014. COMPAR VICENTA: 2022, 2020 TECHNI QUE: Bilate ral CC and MLO views of the breast s were perfor med. Digita l Mammog miguel images were obtain ed. CAD (compu ter assist ed detect ion) was utiliz ed. 3D Digita l breast tomosy nthesi s was perfor med and used in the interp retati on of images . FINDIN GS: There are scatte red areas of fibrog landul ar densit y. Page 1 of 2 [facility] Teodoro zaidi Name: JAQUELINE MACIAS Access ion #: [id number] Sex: F : 1954 8 Exam Date: 025 8:13 AM Exam Name: [...] gs. Recomm end annual screen ing mammog miguel. Accord ing to the [employer], yearly mammog guillermo are recomm ended starti ng at age 40 and contin uing as long as the woman is in good health . Clinic al Breast Exam should be part of the period ic health exam-a bout every 3 years for women in their 20s and 30s and every year for women 40 and over. Breast self-e xam is an option for women in their 20s. Any breast change noted on the breast self-e xam she would be report ed prompt ly to the teodoro zaidi's health care provid er. A negati ve mammog miguel report should not discou rage follow -up or biopsy of a clinic ally signif icant findin g and/or abnorm ality. Dense breast tissue may obscur e small neopla sms. This teodoro zaidi has been entere d into a mammog miguel remind er system with a target date for her next mammog seth. Create d and electr onical ly signed by: Chema graff MD Signed Date: 025 12:47 PM (CT) Dictat ed by: Chema graff MD DD: 025 12:47 PM (CT) DT: 025 12:47 PM (CT) Page 2 of [address] (Imaging) [address] [place], [address], 10/10/2024 14:02:54 10/30/19 25 10/30/2024 LDCT, chest , [facility] [address] [place] [address] Patien t Name: JAQUELINE MACIAS ion #: [id number] Sex: F : 1954 3 Dictat ed By: Chema graff Attend ing Physic abiel: KALLIE TELLO CE Orderi Physic abiel: KALLIE TELLO CE Exam Date: 2024 09:37 AM Exam Name: CT LOW DOSE CNCR SCREEN ING Admitt ing Diagno sis(es ): EXAM: CT LOW DOSE CNCR SCREEN ING HISTOR Y: nicoti ne depend ence COMPAR VICENTA: CT CHEST WO on DOS: , CT [...] ing dose reduct ion techni ques: Automa shahzad exposu re contro l, adjust ment of [...] recomm end follow -up PET-CT Page 1 [facility] [address] [place] [address] Patien t Name: JAQUELINE MACIAS Access ion #: [id number] Sex: F : 1954 3 Dictat ed By: Chema rgaff Attend ing Physic abiel: KHADRA HILLMAN Orderi [...] at 2024 16:09: 10 PM Page 2 [facility] (Imaging) [address] [place], [address], 10/30/2024 17:19:58 12/05/19 25 12/04/2024 PET-C T, skull base to mid-t high scan No observ ation record ed. [address], [place], [address], 12/05/2024 06:45:29 12/06/19 25 12/04/2024 PET-C T, skull base to mid-t high scan No observ ation record ed. [facility] [address], [place], [address], 12/05/2024 18:08:31 Result Notes None recorded. Problems Name Problem SNOMED Code Status Onset Date Resolution Date Notes Provider Name and Address Organization Details Recorded Time Chronic hepatitis C 789038745 Active 2020 Not Available [employer] 3 12:52:34 Gastroesop hageal reflux disease 441251398 Active Not Available [employer] 3 12:52:34 Pure hyperchole sterolemia 645632084 Active Not Available [employer] 3 12:52:34 Enthesopat hy of hip region 08234476 Active Not Available [employer] 3 12:52:35 Type 2 diabetes mellitus without complicati on 190948999 Active 2017 Not Available [employer] 3 12:52:35 Restless legs 93595248 Active Not Available [employer] 3 12:52:35 Vitamin D deficiency 65931353 Active 2016 Not Available [employer] 3 12:52:35 Nicotine dependence 66165863 Active 2021 Not Available [employer] 3 12:52:35 Essential hypertensi on 43845059 Active 2018 Not Available [employer] 3 12:52:35 Diabetes mellitus 09830171 Completed Not Available [employer] 3 12:52:35 Iron deficiency anemia 06296633 Active Not Available [employer] 3 12:52:35 Urgent desire to urinate 76343611 Active 2022 Cheri Do CMA null, [facility] 3 14:47:47 Solitary nodule of lung 438728597 Active 2022 Mary Jack null, [facility] 3 15:02:56 Hypomagnes emia 660973645 Active 2023 Dorian Tello MD [address] [facility], [facility] [address], [place], [address] , [facility] 4 17:00:01 Nodule of lung 597649447 Active 2023 Mary Jack null, [facility] 4 14:46:57 Smoker 88631383 Active 2024 Montana Brisceo MD [address] [facility], [facility] [address], [place], [address] , [facility] [employer] [facility] 5 11:10:31 Notes:Medical History: Postn hany drip Eosinophils 440/uL IgE 16 IU/mL Hypogammaglobulinemia (IgG2) Marijuana use Nicotine use AAT PiMM 148 mg% 13 mm LLL pulm nodule Hypertension Hyperlipidemia T2DM with microalbuminuria Esophagogastritis Hiatal hernia with VJ Chronic Hepatitis C Diverticulosis CKD Hypomagnesemia RLS Vit D deficiency Thoracic DDD Procedure History: Left breast benign biopsies 1981, 2019 Problem Notes None recorded. Procedures Surgical History Date Name Laterality Status Provider Name and Address Organization Details Recorded Time 08/22/20 Medicare Wellness CPT Code, subsequent completed Linda Jimenez RN [facility] [employer] [facility] 08/22/2023 16:42:03 procedure on hand completed Not Available [facility] 11/24/2022 12:49:59 Hysterectomy completed Not Available [facility] 11/24/2022 12:49:59 Imaging Results Imaging Date Name Status LastModified by Organiz ation Details LastModified Time 09/12/2023 CT, chest, w/o contrast completed [address] (Imaging) [address] [place], [address], 09/12/2023 13:33:07 09/12/2023 DEXA, axial skeleton completed [address] (Imaging) [address] [place], [address], 09/12/2023 13:33:27 10/25/2023 PET-CT, skull base to mid-thigh scan completed [place] [address] [facility] [address] [place] [address], [address], 10/26/2023 16:20:44 10/09/2024 screening breast nichol, bilat completed [address] (Imaging) [address] [place], [address], 10/10/2024 14:02:54 10/30/2024 LDCT, chest, for lung cancer screening completed [address] (Imaging) [address] [place], [address], 10/30/2024 17:19:58 12/04/2024 PET-CT, skull base to mid-thigh scan completed [address] [place] [address], [address], 12/05/2024 06:45:29 12/04/2024 PET-CT, skull base to mid-thigh scan completed [place] [address], [address], 12/05/2024 18:08:31 Procedure Notes None recorded. Medical Equipment None Reported. Allergies Allergen ID Allergen Name Allergen Category Reaction Reaction Severity Criticality Documentation Date Start Date Code Code System Note Provider Name and Address Organization Details Recorded Time 90017 Zocor medicatio n other Not available Not available 11/24/202219640 3 RxNorm hair loss Not Available [employer] 12:56:49 Medications Name Sig Start Date Stop [...] administ ered by the provider 04/01 completed NDC: 0003-049 4-20 Not Available Not Available Not Available hydrocodo [...] administ ered by the provider 04/01 completed [facility]: 0409-427 6-17 Not Available Not Available Not Available metformin [...] MG UNDER THE SKIN ONCE A WEEK 2024 active Not Available Not Available Not Avai lable Ozempic 0.25 mg or 0.5 mg (2 [...] Updated DateTime 3 165.1 cm 27.7 kg/m2 94258.1 3 g 96 /min 97 [degF] 97 % 97 % 110 mm[Hg] 72 mm[Hg] Mary Jack [facility] 3 16:34:23 Date Recorded Pain severity - 0-10 verbal numeric rating [Score] - Reported Provider Name and Address Organization Details Last Updated DateTime 08/22/2023 0 Linda Jimenez RN [facility] [employer] 08/22/2023 16:42:16 Date Recorded Body height Body weight Heart rate Body temperature Oxygen saturation Oxygen saturation in Arterial blood by Pulse oximetry Systolic blood pressure Diastolic blood pressure Provider Name and Address Organization Details Last Updated DateTime 4 165.1 cm 45562.9 3 g 89 /min 97.2 [degF] 96 % 96 % 116 mm[Hg] 60 mm[Hg] ISA Matthews [employer] 4 16:19:26 Date Recorded Body height Body mass index (BMI) Body weight Heart rate Body temperature Oxygen saturation Oxygen saturation in Arterial blood by Pulse oximetry Systolic blood pressure Diastolic blood pressure Provider Name and Address Organization Details Last Updated DateTime 4 165.1 cm 26.6 kg/m2 33984.7 8 g 79 /min 97 [degF] 97 % 97 % 122 mm[Hg] 70 mm[Hg] ISA Matthews [facility] [employer] 4 16:27:33 Date Recorded Body height Body mass index (BMI) Body weight Body temperature Heart rate Oxygen saturation Oxygen saturation in Arterial blood by Pulse oximetry Systolic blood pressure Diastolic blood pressure Provider Name and Address Organization Details Last Updated DateTime 5 165.1 cm 27 kg/m2 76236.9 6 g 98.1 [degF] 85 /min 96 % 96 % 120 mm[Hg] 72 mm[Hg] Katrin Reid MA [facility] [employer] 5 10:36:34 Date Recorded Heart rate Respiratory rate Provider N orly and Address Organization Details Last Updated DateTime 11/26/2024 85 /min 15 /min Montana Briscoe MD [address] [place], [address], MD [place] [facility] [employer] 11/26/2024 11:26:15 Date Recorded Body height Body mass index (BMI) Body weight Body temperature Heart rate Oxygen saturation Oxygen saturation in Arterial blood by Pulse oximetry Systolic blood pressure Diastolic blood pressure Provider Name and Address Organization Details Last Updated DateTime 5 165.1 cm 27.5 kg/m2 54119.7 4 g 98.2 [degF] 80 /min 97 % 97 % 118 mm[Hg] 70 mm[Hg] Katrin Reid MA MD [place] [facility] [employer] 5 09:04:29 Date Recorded Heart rate Respiratory rate Provider N orly and Address Organization Details Last Updated DateTime 12/05/2024 80 /min 14 /min Montana Briscoe MD [address] [place], [address] [employer] 12/05/2024 09:12:48 Social History Question Answer Notes LastModified by Organization Details LastModified Time Tobacco Smoking Status Current Every Day Smoker Not Available [employer] 11/24/2022 12:49:52 Do You Have An Advance Directive? No [id number] Information not available 11/24/2022 What Is Your Level Of Alcohol Consumption? Occasional [email or web address] Information not available 08/22/2023 Are You Blind Or Do You Have Difficulty Seeing? No MIGRATION.300 [id number] Information not available 11/24/2022 In The 14 [...] You Have Serious Difficulty Hearing? No MIGRATION.0301 085864 Information not available 11/24/2022 What Type Of Diet Are You Following? REGULAR MIGRATION.0301 [id number] Information not available 11/24/2022 Do You Have An Electrostatic Air Filter? No Information not available 11/26/2024 Have There Been Any Changes To Your Family Or Social Situation? No MIGRATION.0301 960413 Information not available 11/24/2022 What Is The Fluoride Status Of Your Home? Unknown MIGRATION.0301 627161 Information not available 11/24/2022 Do You Have A Humidifier? No Information not available 11/26/2024 Do You Use Insect Repellent Routinely? No MIGRATION.0301 667483 Information not available 11/24/2022 Where Do You Live? [place]House MIGRATION.0301 154762 Information not available 11/24/2022 Are You Able To Care For Yourself? Yes [email or web address] Information not available 08/22/2023 Are You Blind Or Do Yo Have Difficulty Seeing? No [email or web address] Information not available 08/22/2023 Are You Deaf Or Do You Have Serious Difficulty Hearing? No [email or web address] Information not available 08/22/2023 General Stress Level? Moderate [email or web address] Information not available 08/22/2023 Live Alone Of With Others? With Others [email or web address] Information not available 08/22/2023 Do You Have A Medical Power Of Particleboard Factory Worker? No MIGRATION.0301 680501 Information not available 11/24/2022 Do You Have Moisture Problems In Your Home? No Information not available 11/26/2024 What Was The Date Of Your Most Recent Tobacco Screening? 12/05/2024 Information not available 12/05/2024 What Is Your Current Pack Years? 30ormorepackyears MIGRATION.0301 762731 Information not available 11/24/2022 Do You Have Any Pets? Yes MIGRATION.0301 775962 Information not available 11/24/2022 What Is Your Relationship Status? MIGRATION.0301 370914 Information not available 11/24/2022 Do You Use Your Seat Belt Or Car Seat Routinely? Yes MIGRATION.0301 637260 Information not available 11/24/2022 Do You Have Smoke And Carbon Monoxide Detectors In Your Home? Yes MIGRATION.0301 822698 Information not available 11/24/2022 Are You Passively Exposed To Smoke? Yes MIGRATION.0301 062461 Information not available 11/24/2022 Are There Any Smokers In Your House? Yes MIGRATION.0301 649903 Information not available 11/24/2022 How Much Tobacco Do You Smoke? 1 PPD MIGRATION.0301 959602 Information not available 11/24/2022 Do You Use Any Illicit Or Recreational Drugs? No Information not available 12/05/2024 Do You Use Sunscreen Routinely? Yes MIGRATION.0301 547391 Information not available 11/24/2022 Have You Recently Traveled Abroad? No MIGRATION.0301 501066 Information not available 11/24/2022 Do You Have Any Dietary Restrictions? Yes Diabetic MIGRATION.0301 050159 Information not available 11/24/2022 Sex: Unknown Functional Status Question Answer Note LastModified by Organizat ion Details LastModified Time Do you have difficulty walking or climbing stairs? No MIGRATION.9231090 026 Information not available 11/24/2022 Do you have transportation difficulties? No MIGRATION.4927142 026 Information not available 11/24/2022 Are you able to walk? YESWOREST MIGRATION.1079974 026 Information not available 11/24/2022 Do you have difficulty doing errands alone? No MIGRATION.6800902 026 Information not available 11/24/2022 Are you able to care for yourself? Yes MIGRATION.7043860 026 Information not available 11/24/2022 Do you have difficulty dressing or bathing? No MIGRATION.6861636 026 Information not available 11/24/2022 What is your exercise level? Occasional MIGRATION.5242624 026 Information not available 11/24/2022 Mental Status Question Answer Note LastModified by Organizat ion Details LastModified Time Do you have difficulty concentrating, remembering or making decisions? No MIGRATION.[id number] 6 Information not available 11/24/2022 Family History Relationship Description Onset Age of this Age Resolved Age Notes LastModified by Organization Details LastModified Time Mother Heart disease MIGRATION.399 [id number] Not available 11/24/2022 12:50:01 Mother Hypertensive disorder MIGRATION.311 [id number] Not available 11/24/2022 12:50:01 Mother Diabetes mellitus MIGRATION.545 7391119 Not available 11/24/2022 12:50:01 Father Hypertensive disorder MIGRATION.711 9977199 Not available 11/24/2022 12:50:01 Father Malignant tumor [...] BLOOD DISEASES N SCHIZOPHRENIA N SHINGLES N SHOULDER PAIN N BOWEL PROBLEMS N DEPRESSION (INCLUDING POST ) N STROKE/TIA N ULCERS N KNEE PAIN N BENIGN PROSTATIC HYPERPLASIA N OBESITY N GERD/NAUSEA N ANEURYSM N URINARY/BLADDER/KIDNEY PROBLEMS N CORONARY ARTERY DISEASE (CAD) N ADDICTION CONCERNS N USE OF BLOOD THINNERS N SKIN PROBLEMS N EMPHYSEMA N MUSCLE,JOINT OR BONE PROBLEMS N DVT N STOMACH ULCERS N BLOOD CLOTS N USE OF NSAIDS N CONCUSSION OR SPINAL TRAUMA N NEUROPATHY N AIDS/HIV N FRACTURES N HYPERTENSION Y ELBOW PAIN N TOURETTE'S N Metal allergy N ANXIETY DISORDER N BLOOD TRANSFUSION N ANEMIA/BLOOD DISORDER N BIPOLAR DISORDER N BRONCHITIS N OSTEOARTHRITIS N TUBERCULOSIS N FOOT PROBLEM N HEART VALVE DISORDERS N ALLERGIES/HAYFEVER N SOFT TISSUE INJURY N INFECTIOUS DISEASE N HEART ARRHYTHMIA N INSOMNIA N HIGH CHOLESTEROL / HYPERLIPIDEMIA N RHEUMATOID ARTHRITIS N EDEMA N CHRONIC PAIN SYNDROME N CAROTID BLOCKAGE N BACK / NECK PROBLEMS N HAVE YOU BEEN HOSPITALIZED OR SEEN IN [facility] ER IN THE PAST YEAR ? N BURSITIS N HERNIATED DISC N DIALYSIS N FIBROMYALGIA N OSTEOPOROSIS N ARTHRITIS N NO SIGNIFICANT PAST MEDICAL HISTORY N PERIPHERAL NEUROPATHY N DIABETES, TYPE Y HEARTBURN / REFLUX N HEPATITIS / LIVER DISEASE Y GOUT N ALZHEIMER'S DISEASE N SLEEP DISORDER N HERPES N HEADACHES/MIGRAINES N SEIZURES/EPILEPSY N VASCULAR DISEASE N Blood Disorder N HIP PAIN N DIZZINESS N HEAD TRAUMA OR INJURY N HEART DISEASE/HEART PROBLEMS N MULTIPLE SCLEROSIS N CANCER: SPECIFY N CARDIAC ARRHYTHMIA N ANESTHESIA COMPLICATIONS N ATRIAL FIBRILLATION N [...] virus, trivalent, preservative 3 completed Not Available [facility] 11/24/2022 12:56:41 pneumococcal polysaccharide PPV23 1 completed Not Available [facility] 11/24/2022 12:56:41 Hep B, adult 1 completed Not Available [facility] 11/24/2022 12:56:42 Hep A, adult 1 completed Not Available [facility] 11/24/2022 12:56:42 Hep B, adult 1 completed Not Available [facility] 11/24/2022 12:56:42 Influenza, split virus, quadrivalent, preservative 9 completed Not Available [facility] 11/24/2022 12:56:42 Hep B, adult 1 completed Not Available [facility] 11/24/2022 12:56:42 Pneumococcal conjugate PCV 13 0 completed Not Available [facility] 11/24/2022 12:56:42 Influenza, split virus, quadrivalent, preservative 5 completed Not Available [facility] 11/24/2022 12:56:42 Past Encounters Encounter ID Performer Location Encounter Start Date Encounter Closed Date Diagnosis/Indication Diagnosis SNOMED-CT Code Diagnosis ICD10 Code Diagnosis Note [id number] [facility] [address] [address] 02/02/2021 00:00:00 02/02/2021 17:01:03 [id number] [facility] [address] [address] 05/07/2021 00:00:00 05/07/2021 10:23:12 [id number] [facility] [address] [address] 08/10/2021 00:00:00 08/10/2021 16:21:47 [id number] [facility] [address] [address] 08/13/2021 00:00:00 08/13/2021 09:59:04 [id number] [facility] [address] [address] 12/17/2021 00:00:00 12/17/2021 09:39:26 [id number] [facility] [address] [address] 02/08/2022 00:00:00 02/08/2022 15:40:38 [id number] [facility] [address] [address] 04/01/2022 00:00:00 04/01/2022 09:34:25 [id number] [facility] [address] [address] 04/22/2022 00:00:00 05/25/2022 19:24:57 [id number] [facility] [address] [place] [address] 07/01/2022 00:00:00 07/01/2022 12:05:02 [id number] [facility] [address] [address] 08/16/2022 00:00:00 08/16/2022 16:31:28 [id number] Dorian Tello MD [facility] Internal Med [facility] [address] [address] 02/14/2023 15:54:10 02/14/2023 17:29:58 Essential hypertension 49492852 I10 Gastroesop hageal reflux disease 087726796 K21.9 Pure hypercholesterolemia 477402812 E78.00 Type 2 cee betes mellitus without complication 311401489 E11.9 Chronic pain syndrome 37 9743417 G89.4 Obese class I 0438905142 81973 E66.9 Long-term current use of opiate analgesic drug 0476264049 88876 Z79.971 [id number] Dorian Tello MD [facility] Med [facility] [address] [address] 08/22/2023 16:18:13 08/22/2023 17:08:26 Adult health examination 690808070 Z00.00 Screening for disorder 422430182 Z13.9 Essential hypertension 78464484 I10 Pure hypercholesterolemia 151145966 E78.00 Type 2 cee betes mellitus without complication 739176046 E11.9 Gastroesop hageal reflux disease 368939129 K21.9 [id number] Dorian Tello MD [facility] Internal Med [facility] [address] [address] 02/13/2024 16:12:30 02/13/2024 16:56:13 Essential hypertension 24800314 I10 Gastroesop hageal reflux disease 574019116 K21.9 Pure hypercholesterolemia 498579076 E78.00 Type 2 cee betes mellitus without complication 727584850 E11.9 Chronic pain syndrome 37 8089405 G89.4 Long-term current use of opiate analgesic drug 0302601597 12347 Z79.201 [id number] Dorian Tello MD [facility] Internal Med [facility] [address] [place] [address] 08/20/2024 16:22:39 08/20/2024 16:47:32 Essential hypertension 90502078 I10 Gastroesop hageal reflux disease 139890244 K21.9 Pure hypercholesterolemia 778835563 E78.00 Type 2 cee betes mellitus without complication 524436825 E11.9 [id number] Montana Briscoe MD [facility] [address] [address] 11/26/2024 09:51:09 11/26/2024 15:40:09 Solitary nodule of lung 653650022 R91.1 Smoker 22813402 F17.218 F17.219 Z87.891 Chronic cough 67516872 R 05.3 R06.00 T78.40XA D89.9 [id number] Montana Briscoe MD [facility] [address] [place] [address] 12/05/2024 08:39:12 12/10/2024 15:58:50 Solitary nodule of lung 430261371 R91.1 Smoker 70930597 F17.218 F17.219 Z87.891 Chronic cough 85005386 R 05.3 R06.00 D89.9 Health Concerns Section Related Observation LastModified by Organization Detai ls LastModified Time None Recorded Concern Status LastModified by Organization Details LastModified Time None Recorded Advance Directives Directive N: Payers Encounter Date Sequence Insurance Name Policy Number Policy Escobar Covered Member ID Escobar Member ID Guarantor Name 08/22/2023 1 [employer] [facility] [facility] [place] [facility] [employer] (MEDICARE - MEDICAID REPLACEMENT HMO) [id number] Jaqueline F Ray [id number] Jaqueline F Ray 02/13/2024 1 [employer] [facility] [place] [employer] (MEDICARE - MEDICAID REPLACEMENT HMO) [id number] Jaqueline F Ray [id number] Jaqueline F Ray 08/20/2024 1 [employer] [facility] [facility] [place] [employer] (MEDICARE - MEDICAID REPLACEMENT HMO) [id number] Jaqueline F Ray [id number] Jaqueline Uriostegui Ray 11/26/2024 1 [facility] (MEDICARE - MEDICAID REPLACEMENT HMO) [id number] Jaqueline Uriostegui Ray [id number] Jaqueline Uriostegui Ray 12/05/2024 1 [facility] DUAL OPTIONS (MEDICARE - MEDICAID REPLACEMENT HMO) [id number] Jaqueline Uriostegui Ray [id number] Jaqueline Uriostegui Ray Notes Date Note Type Note Provider Name and Address Organization Details Recorded Time 3 text/html Patient Name: Jaqueline MaciasDate Of Service: Tuesday ( 08.22.2023 ): [...] Systemic Symptoms:none Medication Reconciliation: from medication list. Zadzrlnjuud66/07/2023: Low-dose CT scan of chest reveals a [...] lesions. The last HAIC was DCCT HAIC: 6.2 Calculated MB mg%. Average blood [...] Reviewed 08/22/2023Zocor Hair LossCrestor Hair LossVaccination and Xtiovzwfnmvf6942-86 Jrehaavuo2285-16 Hep T0893-92 Hep U2576-52 Prevnar 13 Cy6635-13 InfluenzaSurgical HistoryLeft Adnexal Mass, Left Ulnar Nerver Surgery, Lipo disolve Tx to AbdomenPreventative Testing Confirmed by Our Yllgsjk9106/23/2023 MAMMOGRAM ALBUMIN 4.4 G/DL N003/02/2023 LDCT /03/2023 MICRO ALBUMIN 8.6 MG/L N003/02/2023 HAIC 6.2 % 09/03/2021 DEXA SCAN11/29/2012 UPPER ENDOSCOPYSocial HistorySmokes one pack daily for 15+ yearsDoes not drinkWorks outside lawn serviceFamily HistoryMother 87 hx of Type II Diabetes and cerebral aneurysm.Father 92 good healthOne brother living and in good health but has DMMenarche 12 Menopause A0 Dorian Tello MD [address] [facility], [facility] [address], [place], [address], [facility] [email or web address] 08/22/2023 16:57:49 4 text/html Patient Name: Jaqueline Uriostegui RayDate Of Service: Tuesday ( 02.13.2024 ): 1955 [...] lesions. The last HAIC was DCCT HAIC: 5.5 Calculated MB mg%. Average blood [...] or has seen in the past a Brand Ambassador Promotional Model: No .Pain - Enjoyment of Life - General Activity ScalePain on Average: 5Enjoyment of Live: 5General Activity: 4Enjoyment of Life - General Activity Scale: 5Currently regimen consists of [place] as prescribed with no evidence of abuse [...] ReviewedZocor Hair LossCrestor Hair Loss Vaccination and Shuxzytpvydd6548-61 Awgqdpwiq9852-09 Hep C2778-79 Hep O2336-67 Prevnar 13 Cm8859-54 Influenza Surgical Jemscls0021-82 Left Adnexal Rzgp5905-06 Left Ulnar Nerver Ocisupj7826-60 Lipo disolve Tx to Abdomen Preventative Kadpbkn1409/12/2023 ALBUMIN 3.8 G/DL09/12/2023 LDCT 4111/13/2022 DEXA SCAN (NORMAL)09/12/2023 HAIC 5.5 %06/23/2023 MAMMOGRAM /03/2023 MICRO ALBUMIN 8.6 MG/L N011/29/2012 UPPER ENDOSCOPY Social HistorySmokes one pack daily for 15+ yearsDoes not drinkWorks outside lawn service Family HistoryMother 87 hx of Type II Diabetes and cerebral aneurysm.Father 92 good healthOne brother living and in good health but has DMMenarche 12 Menopause A0 Dorian Tello MD [address] [facility], [facility] [address], [place], [address], [facility] [employer] 02/13/2024 16:51:51 4 text/html Patient Name: Jaqueline MaciasDate Of Service: Tuesday ( 08.20.2024 ): 1955 [...] Systemic Symptoms:none Medication Reconciliation: from medication list. Acdyadcinja11/07/2023: Low-dose CT scan of chest reveals a [...] and instructed to make appointment with the date night caregiver or printing machine operator tape rules. Control: Below 6.2 Active Medication ListNorco 325 [...] 2020-11 HEP B( ) 2021-07 PNEUMOVAX Surgical Jnbvqck8150-35 Left Adnexal Owwf9711-13 Left Ulnar Nerver Johlzmz4373-19 Lipo disolve Tx to Abdomen Preventative Testing( [...] 12 Menopause A0 Dorian Tello MD [address] [facility], [facility] [address], [place], [address], [facility] [employer] 08/20/2024 16:39:00 5 text/html Primary care/Referring provider: [...] Heartburn: no Edema: no Modified [employer] [place] (mMRC) Dyspnea Scale - Grade 1 Grade [...] years in between) = 42 pack years [place]: no Dye: no Dust mites: yes Mold: no Damp basement: no Wood burning stove: no Animal dander: yes dogs Cockroaches: no Pollen: yes Arsenic: no Asbestos: no Beryllium: no Cadmium: no Chromium: no [place] smoke: no Diesel fumes: no Nickel: no [...] slight chance of dozing. Montana Briscoe MD [address] [place] [address], [facility] [address], [place], [address], [place] [facility] [employer] 11/26/2024 11:26:24 5 text/html Primary care/Referring provider: Dorian Tello MD CC: I have an abnormal PET CT. Patient is here to go over cough evaluation and management. Initial development of cough: uration of cough: 4 yearsNature of cough: productive of clear sputumCondition of cough: stableTiming of cough: noneFrequency: twice a weekLimits activities: yesAggravating factors: walking briskly, itchy throat, perennial allergies, smokingAlleviating factors: resting Treatment history: None Other symptoms:Drooling: noDysarthria: noNeck pain: noOdynophagia: noDysphagia: noWeak mastication: noFacial weakness: noNasal speech: noProtruding tongue: noWheezing: noChest tightness: yesOrthopnea: 2-pillow habitFrequent throat clearing or swallowing: yesPalpitations: noHeartburn: noEdema: no Modified [employer] [place] (mMRC) Dyspnea Scale - Grade 1Grade 0 I only get breathless with strenuous exercise .Grade 1 I get short of breath when hurrying on the level or walking up a slight hill .Grade 2 I walk slower than people of the same age on the level because of breathlessness or have to stop for breath when walking at my own pace on the level .Grade 3 I stop for breath after walking about 100 yards or after a few minutes on the level .Grade 4 I am too breathless to leave the house or I am breathless when dressing . Environmental exposures:Nicotine smoke: 1 ppd 1976-present (quit 6 years in between) = 42 pack yearsPaint: noDye: noDust mites: yesMold: noDamp basement: noWood burning stove: noAnimal dander: yes dogsCockroaches: noPollen: yesArsenic: noAsbestos: noBeryllium: noCadmium: noChromium: noCoal smoke: noDiesel fumes: noNickel: noSilica: noSoot: no EPWORTH SLEEPINESS SCALE (ESS) CHANCE OF DOZING SCORE0 = would never doze1 = slight chance of dozing2 = moderate chance of dozing3 = high chance of dozing SITUATION AND CHANCE OF DOZINGSitting and reading - 1Watching television - 0Sitting inactive in a public place (e.g. a theater or meeting) - 0As a passenger in a car for an hour without a break - 0Lying down to rest in the afternoon when circumstances permit - 0Sitting and talking to someone - 0Sitting quietly after lunch without alcohol - 0In a car, while stopped for a few minutes in the traffic - 0TOTAL SCORE 1Subjectively, patient has a slight chance of dozing. Montana Briscoe MD [address] [place] [address], [place], [address], [place] [facility] 12/05/2024 09:29:33 OBGyn Episode No OBEpisode recorded.
--- OUTSIDE RECORDS SUMMARY | 2024-12-12 09:21 | XMS_ITS | Clinical Summary ---
Author Organization [facility] Address [address] [place] [address] Care Team Providers Care Medical Billing Associate Name Role Phone Dorian Tello MD Primary Care Provider Allergies Active Allergy Reactions Criticality Noted Date Comments Unclassified Drug Nausea & Vomiting Low 08/06/2022 Unknown antibiotic with UTI, thinks its Cipro or Keflex Medications blood sugar diagnostic (ONETOUCH ULTRA BLUE TEST STRIP [facility]) OneTouch Ultra Blue Test Strip TEST BLOOD [...] (07/19/2022): Added automatically from request for surgery [id number] Surgical History Surgery Date Site/Laterality Comments PARTIAL [...] on file Legal Sex Female 1:06 AM CANDLE POURER Gender Identity Not on file Sexual Orientation Not on file Obstetrics History Last Filed Vital Signs Vital Sign Reading Time Taken Comments Blood Pressure 143/70 08/24/2022 10:00 AM CANDLE POURER Pulse 81 08/24/2022 10:05 AM CANDLE POURER Temperature 36.2 C (97.2 F) 08/24/2022 10:05 AM CANDLE POURER Respiratory Rate 22 08/24/2022 10:0 5 AM CANDLE POURER Oxygen Saturation 96% 08/24/2022 10: 05 AM CANDLE POURER Inhaled Oxygen Concentration - - Weight 85.1 kg (187 lb 11.2 oz) 08/24/2022 5:54 AM CANDLE POURER Height 170.2 cm (5' 7 ) 08/24/2022 5:54 AM CANDLE POURER Body Mass Index 29.4 08/24/2022 5:54 AM CANDLE POURER Plan of Treatment Health Maintenance Due Date [...] Completed 12/03/2020 Medical Devices Implanted Type Area Baggage Security Checker Device Identifier Shelf Expiration Date Model / Serial / Lot Titanium Left: Breast Description:Left breast steffen nium implant [employer] Set Implant Ar[employer]rex Fibertak Biceps Sterile Latex Free Ar-3670 - [id number] Implanted:Qty: 1 on 08/24/2022 by Sony Banks MD at [facility] Right: Shoulder [employer] 03/25/2027 AR-3670 / / [id number] [employer] Swivelock C 4.75mm 19.1mm Closed Eyelet Vent Universal Suture Ar-2324bcc - [id number] Implanted:Qty: 1 on 08/24/2022 by Sony Banks MD at [facility] [place] Right: Shoulder [employer] 06/25/2026 [id number] / / [id number] Insurance [place] Care Teams Medical Billing Associate Relationship Specialty Start Date End Date Dorian Tello MD [address] [facility] [address] [place] [address] PCP - General Internal Medicine 07/13/22
[2024-12-12 09:27] LABS: Mean Platelet Volume 9.8 fl (7.4-10.4); Platelet Count Result 337 k/mm3 (150-375)
[2024-12-12 09:46] LABS: INR 0.9; Prothrombin Time 12.6 Seconds (11.1-14.7)
--- NOTE | 2024-12-12 16:20 | SUR.PHASEII ---
1605 - dr. fleming in room talking with pt. received order to be discharged
== END 2024-12-12 16:10 | disposition home or self-care (01) ==
PROVIDERS: PCP Internal Medicine; Referring Provider Internal Medicine Pulmonary Disease; Visit Provider Radiology Diagnostic Radiology
PROC: BB24ZZZ Computerized Tomography (CT Scan) of Bilateral Lungs (ICD-10-PCS; CPT 32408; principal; 2024-12-12 11:00)
DX: C34.32 Malignant neoplasm of lower lobe, left bronchus or lung (principal)
CPT/HCPCS: 32408; 36415; 71045; 71046; 85049; 85610; 88305; 88342

== ENCOUNTER 2025-05-15 11:15 | Outpatient (CLI) | payer OTHER, SELFPAY ==
[2025-05-15 11:29] LABS: Hematocrit 40.1 % (37.0-47.0); Hemoglobin 13.3 g/dL (12.0-15.0); Immature Granulocyte Percent A 0.4 % (0-0.5); Lymphocytes Absolute Auto 3.14 K/mm3 (0.9-3.2); Mean Corpuscular HGB Conc 33.2 g/dl (32-36); Mean Corpuscular Hemoglobin 30.9 pg (26-34); Mean Corpuscular Volume 93.0 fl (80-100); Nucleated Red Blood Cells Absolute Auto 0.000 K/mm3 (0.0-0.012); Nucleated Red Blood Cells Perc 0.0 % (0.0-0.2); Platelet Count Result 310 k/mm3 (150-375); Red Blood Count 4.31 M/mm3 (4.2-5.4); White Blood Count 8.4 K/mm3 (4.5-10.0)
[2025-05-15 11:33] LABS: Blood Urea Nitrogen 13 mg/dL (8-26); Carbon Dioxide 23 mmol/L (22-30); Chloride 105 mmol/L (98-109); Estimated Glomerular Filt Rate 40; Glucose 100 mg/dL (70-105); Ionized Calcium (POC) 1.26 mmol/L (1.11-1.31); Potassium 4.2 mmol/L (3.5-4.9); Sodium 140 mmol/L (138-146)
--- OUTSIDE RECORDS SUMMARY | 2025-05-15 11:45 | XMS_ITS | Encounter Summary ---
Author Organization [facility] [employer]NA[employer] [facility] Address [address] [place] [address] Care Team Providers Care Carbon Paper Interleafer Name Role Phone Unavailable Primary Care Provider Unavailabl e Reason for Visit * Reason Comments Follow Up Encounter Details Date Type Department Care Team (Late st Contact Info) Description 05/15/2025 11:45 AM CDT Office Visit [facility] [place] Oncology and Hematology - Greg [address] [facility] [address] [place] [address] Reuben Lance MD [address] [facility] [address] [place] [address] Arrived Social History Tobacco Use Types Packs/Day Years Used Date Smoking Tobacco: Former Cigarettes 1 52.3 0 09/26/1972 - 12/31/2024 Smokeless Tobacco: Never Alcohol Use Standard Drinks/Week Comments Never 0 (1 standard drink = 0.6 oz pur e alcohol) Comments Unknown Sex and Gender Information Value Date Recorded Sex Assigned at Not on file Legal Sex Female 3:32 PM CDT Gender Identity Not on file Sexual Orientation Not on file documented as of this encounter Last Filed Vital Signs Vital Sign Reading Time Taken Comments Blood Pressure 110/62 05/15/2025 11:31 AM CDT Pulse 62 05/15/2025 11:31 AM CDT Temperature 36.1 C (96.9 F) 05/15/2025 11:31 AM CDT Respiratory Rate - - Oxygen Saturation 96% 05/15/2025 11:31 AM CDT Inhaled Oxygen Concentration - - Weight 79.4 kg (175 lb) 05/15/2025 11:31 AM CDT Height 167.6 cm (5' 6) 05/15/2025 11:31 AM CDT Body Mass Index 28.25 05/15/2025 11:31 AM CDT documented in this encounter Plan of Treatment Not on file documented as of this encounter Visit Diagnoses Not on filedocumented in this encounter
--- OUTSIDE RECORDS SUMMARY | 2025-05-15 11:49 | XMS_ITS | Clinical Summary ---
Author Organization [facility] Address [address] [place] [address] Care Team Providers Care Title I Director Name Role Phone Dorian Tello MD Primary Care Provider Dorian Tello MD Unavailable [phone] Reuben Lance MD Unavailable [phone] Reuben Lance MD Unavailable [phone] Allergies Active Allergy Reactions Criticality Noted Date Comments Simvastatin Other (See comments) 01/14/2025 Zocor Unclassified Drug Nausea & Vomiting Low 08/06/2022 Unknown antibiotic with UTI, thinks its Cipro or Keflex Medications blood sugar diagnostic (ONETOUCH ULTRA BLUE TEST STRIP [facility]) OneTouch Ultra Blue Test Strip TEST BLOOD [...] tabletIndicatio ns:Treatment of Non-Bleeding Gastric Disorder Take 1 tablet (40 mg total) by mouth nightly Active losartan (COZAAR) 25 mg tabletIndicatio ns:hypertension Take 1 tablet (25 mg total) by mouth nightly Active atorvastatin (LIPITOR) 20 mg tabletIndicatio ns:hyperlipidem ia Take 1 tablet (20 mg total) by mouth nightly Active eszopiclone (LUNESTA) 3 mg tabletIndicatio ns:Insomnia Take 1 tablet (3 mg total) by mouth nightly Active naproxen sodium 220 mg capsuleIndicati ons:Pain Take 220 mg by mouth 2 (two) times a day Active metFORMIN (GLUCOPHAGE) 500 mg tabletIndicatio ns:type 2 diabetes mellitus Take 500 mg by mouth nightly Active albuterol HFA (PROVENTIL HFA,VENTOLIN HFA,PROAIR HFA) 90 mcg/actuation inhaler Inhale 2 puffs every 8 (eight) hours as needed 5 Active Ozempic 2 mg/dose (8 mg/3 mL) pen injector injectionIndica tions:type 2 diabetes mellitus Inject 2 mg under the skin once a week tuesdays 5 Active spironolactone (ALDACTONE) 100 mg tabletIndicatio ns:hair loss Take 1 tablet (100 mg total) by mouth daily 3 Active nicotine (NICODERM CQ) 14 mgIndications:S moking addiction Place 1 patch on the skin daily for 24 hours 30 patch 5 Active Additional Information Patient not taking.Informant: Self, Reported on 05/06/2025 oxyCODONE (ROXICODONE) 5 mg immediate release tabletIndicatio ns:Pain Take 1 tablet (5 mg total) by mouth every 4 (four) hours as needed for pain for up to 20 doses 20 tablet 5 Active Additional Information Patient not taking.Reported on 05/06/2025 acetaminophen 500 mg capsuleIndicati ons:Pain Take 2 capsules (1,000 mg total) by mouth every 6 (six) hours 5 Active gabapentin (NEURONTIN) 100 mg capsuleIndicati ons:Pain Take 1 capsule (100 mg total) by mouth 3 (three) times a day for 5 days, THEN 1 capsule (100 mg total) 2 (two) times a day for 5 days, THEN 1 capsule (100 mg total) nightly for 5 days. 30 capsule 5 Active polyethylene glycol (MIRALAX) 17 gram/dose bulk powderIndicatio ns:constipation Take 17 g by mouth daily 5 Active HYDROcodone-charlotte taminophen (NORCO) 7.5-325 mg per tablet Take 1 tablet by mouth 3 (three) times a day Active Active Problems Problem Noted Date Diagnosed Date Diastolic dysfunction 01/25/2025 Assessment & Plan (01/25/2025 8:29 AM CDT): Per echo: Grade II diastolic dysfunction. EF 75% - cards has signed off and will follow up as outpatient - monitor on tele Bradycardia 01/24/2025 Assessment & Plan (01/25/2025 8:30 AM CDT): William immediatly post op, has now resolved - cards was consulted and signed off - TTE done - 14 day holter monitor at [place] - monitor on tele Adenocarcinoma of lower lobe of left lung 2024 Assessment & Plan (01/28/2025 7:49 AM CDT): S/p robotically assisted left lower lobectomy and lymph node dissection on 01/22 - chest tube management- to WS, + air leak, thin SS drainage - Will switch to mini-500 - PT to eval and treat - DVT PPX: TID heparin, SCDs - pain control: PO multimodal pain meds, dPCA Tear of right rotator cuff 07/19/2022 Overview (07/19/2022): Added automatically from request for surgery [id number] Diabetes mellitus Overview (01/23/2025): reports A1C 6.1 in 06/2022 Assessment & Plan (01/23/2025 11:26 AM CDT): Pt reported HgA1c: 5.5 07/2024 - holding of on home PO agents - SSI - monitor BS Encounters Date Type Department Care Team Description 05/06/2025 9:00 AM CDT Office Visit [facility] Medicine Surgery [address] [facility] [address] [place] [address] Andres Bland MD History of lung cancer (Primary Dx) 05/06/2025 7:07 AM CDT - 05/06/2025 11:59 PM CDT Hospital Encounter [facility] [place] [address] [facility] [address] [place] [address] Adenocarcinoma of lower lobe of left lung (HCC) Discharge Disposition: Discharge to home or self care from Last 3 Months Immunizations Immunization Administration Dates Next Due Hep A, Adult 12/03/2020 Hep B Vaccine 04/09/2021,01/01/2021,12/03/2020 Influenza, Quadrivalent, Spl it, Intramuscular 08/06/2019,06/30/2015 Influenza, Trivalent, IM (MDV) 07/09/2013 Pneumococcal Conjugate PCV 13 08/04/2020 Pneumococcal Polysaccharide PPV23 08/10/2021 Surgical History Surgery Date Site/Laterality Comments PARTIAL [...] GERD (gastroesophageal reflux disease) well controlled Insomnia Motion sickness Family History Medical History Relation Name Comments Cancer Father Hypertension Father Stroke Father Diabetes Mother Heart disease Mother Relation Name Status Comments Father Mother Social History Tobacco Use Types Packs/Day Years Used Date Smoking Tobacco: Former Cigarettes 1 49.6 1 972 - 2006 Passive Smoke Exposure: Past Tobacco Cessation:Counseling Given: No AUDIT-C Answer Date Recorded Q1: How often do you have a drink containing alc ohol? Monthly or less 01/14/2025 Q2: How many drinks containi ng alcohol do you have on a typical day when you are drinking? 1 or 2 01/14/2025 Q3: How often do you have si x or more drinks on one occasion? Never 01/14/2025 Personal Safety Answer Date Recorded Have you ever been in or are you currently in a harmful physical or emotional relationship or is someone making you feel afraid or unsafe? 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 Gender Identity Not on file Sexual Orientation Not on file Obstetrics History Last Filed Vital Signs Vital Sign Reading Time Taken Comments Blood Pressure 114/74 05/06/2025 7:56 AM CDT Pulse 74 05/06/2025 7:56 AM CDT Temperature 36.1 C (97 F) 05/06/2025 7:56 AM CDT Respiratory Rate 18 05/06/2025 7:56 AM CDT Oxygen Saturation 99% 05/06/2025 7:56 AM CDT Inhaled Oxygen Concentration - - Weight 77.2 kg (170 lb 3.2 oz) 05/06/2025 7:56 A M CDT Height 167.6 cm (5' 6) 05/06/2025 7:56 AM CDT Body Mass Index 27.47 05/06/2025 7:56 AM CDT Plan of Treatment Health Maintenance Due Date Last Done Comments Albumin Creatinine Ratio, Urine 1955 Breast Cancer Screening-Mammogram 1955 Colon Cancer Screening-Colonoscopy 1955 Depression Screening 1955 Hepatitis C Screening 1955 Osteoporosis Screening-Bone Density Scan 1955 Dilated Eye Exam 1955 Foot Exam 1955 Lipid Panel 1955 DTaP/Tdap/Td Vaccine (1 - Tdap) 1966 Zoster Vaccine (1 of 2) 2005 Well Visit 65+ 02/08/2020 Hemoglobin A1C 01/26/2023 07/29/2022 Influenza Vaccine (#1) 2025 9, 06/30/2015, 07/09/2013 eGFR 01/24/2026 01/24/2025, 12/27, 01/22/2025, Additional history exists Fall Risk Assessment 01/28/2026 01/28/2025 Hepatitis B Screening Completed 04/09/2021 , 01/01/2021, 12/03/2020 Pneumococcal vaccine 65+ Completed 08/10/2021, 05/2020 Medical Devices Implanted 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 Device 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 Shelf Expiration Date Model / Serial / Lot Titanium Left: Breast Description:Left breast steffen nium implant [employer] Set Implant Arthrex Fibertak Biceps Sterile Latex Free Ar-3670 - [id number] Implanted:Qty: 1 on 08/24/2022 by Sony Banks MD at [facility] Right: Shoulder [employer] 03/25/2027 AR-3670 / / [id number] [employer] Swivelock C 4.75mm 19.1mm Closed Eyelet Vent [place] Suture Ar-2324bcc - [id number] Implanted:Qty: 1 on 08/24/2022 by Sony Banks MD at [facility] Right: Shoulder [employer] 06/25/2026 AR-[id number] / / [id number] Procedures Procedure Name Priority Date/Time Associated Diagnosis Comments CT CHEST WO CONTRAST Schedule Routine, Read Routine (OP Routine) 05/06/2025 7:27 AM CDT Adenocarcinoma of lower lobe of left lung (HCC) EGFR Routine 01/24/2025 10:20 PM CDT HEMOGLOBIN A1C Routine 07/29/2022 11:41 AM CDT Type 2 diabetes mellitus with other specified complication, unspecified 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 Interval left lower lobectomy without complication. 2. Unchanged multifocal pulmonary nodules of varying attenuation, highly suspicious for adenocarcinoma spectrum lesions. Electronically signed by: Giovanni Ashley M.D. Narrative 05/06/2025 7:56 AM CDT EXAMINATION: Computed tomography of the chest without intravenous contrast HISTORY: Lung cancer restaging TECHNIQUE: Transaxial computed tomographic images of the chest were obtained without intravenous contrast according to the standard protocol. COMPARISON: 10/30/2024 FINDINGS: Multifocal pulmonary nodules are again seen throughout both lungs, some of which are incompletely groundglass in attenuation while others contain a mixture of cystic, solid, and groundglass components. These remain concerning for adenocarcinoma spectrum lesions. Example in the right upper lobe on series 3 image 55 measures 2.1 cm in size, stable. Left upper lobe nodule on series 3 image 26 with groundglass and solid attenuation measures 2 cm in long axis, also stable. Additional pulmonary nodules are unchanged in size. There are changes from interval left lower lobectomy. No pleural effusion or pneumothorax. Normal heart size with trace pericardial effusion. No thoracic lymphadenopathy. Nonaneurysmal thoracic aorta. The upper abdominal organs appear normal on this noncontrast study. No suspicious bone lesion or fracture. Procedure Note Giovanni Ashley MD - 05/06/2025 EXAMINATION: Computed tomography of the chest without intravenous contrast HISTORY: Lung cancer restaging TECHNIQUE: Transaxial computed tomographic images of the chest were obtained without intravenous contrast according to the standard protocol. COMPARISON: 10/30/2024 FINDINGS: Multifocal pulmonary nodules are again seen throughout both lungs, some of which are incompletely groundglass in attenuation while others contain a mixture of cystic, solid, and groundglass components. These remain concerning for adenocarcinoma spectrum lesions. Example in the right upper lobe on series 3 image 55 measures 2.1 cm in size, stable. Left upper lobe nodule on series 3 image 26 with groundglass and solid attenuation measures 2 cm in long axis, also stable. Additional pulmonary nodules are unchanged in size. There are changes from interval left lower lobectomy. No pleural effusion or pneumothorax. Normal heart size with trace pericardial effusion. No thoracic lymphadenopathy. Nonaneurysmal thoracic aorta. The upper abdominal organs appear normal on this noncontrast study. No suspicious bone lesion or fracture. IMPRESSION: 1. Interval left lower lobectomy without complication. 2. Unchanged multifocal pulmonary nodules of varying attenuation, highly suspicious for adenocarcinoma spectrum lesions. Electronically signed by: Giovanni Ashley M.D. Andres De La O MD IM CT PROCEDURES Final Result * (ABNORMAL) eGFR (01/24/2025 10:20 PM CDT) eGFR 46(L) >=60 mL/min/1. 73 m2 Comment: Interpretive Data Reference Interval Normal >/= 90 mL/min/1.73m2 Mildly decreased* 60 - 89 mL/min/1.73m2 Mildly to moderately decreased 45 - 59 mL/min/1.73m2 Moderately to severely decreased 30 - 44 mL/min/1.73m2 Severely decreased 15 - 29 mL/min/1.73m2 Kidney Failure < 15 mL/min/1.73m2 *Relative to young adult level Estimated glomerular filtration rate is determined by the 2020 CKD-EPI equation recommended by the National Kidney Foundation (A Unifying Approach to GFR Estimation: Recommendations of the NKF-ASK Task Force on Reassessing the Inclusion of Race in Diagnosing Kidney Disease, JASN 2020). The CKD-EPI equation should not be used for patients with unstable renal function and has not been validated in children and those over 70. Current interpretive data was last reviewed 2021. Blood 01/24/2025 10:2 0 PM CDT 01/24/2025 10:33 PM CDT us Andres De La O MD LAB BLOOD ORDERAB LES Final Result [facility] Department [place] [address] * Hemoglobin A1c (07/29/2022 11:41 AM CDT) Blood us Sony Banks MD LAB BLOOD ORDERAB LES Final Result EXTERNAL LAB from Last 3 Months or Most Recently Relevant to Health Maintenance Insurance [facility] Member Subscriber Plan / Payer ( fective 2025-Present) Name:Jaqueline Macias Relation to Subscriber:Self Name:Jaqueline Macias Payer ID:[id number] (NAIC) Group ID:Not on file Type:MEDICAID RISK OTHER Address: [address] Advance Directives For more information, please contact: [phone] * Full Code (Latest Code Status on File) Date Activated Date Inactivated Comments 01/22/2025 7:19 PM 01/28/2025 6:47 PM Care Teams Title I Director Relationship Specialty Start Date End Date Dorian Tello MD [address] [facility] [address] [place] [address] PCP - General Internal Medicine 07/13/22 Dorian Tello MD [address] [facility] [address] [place] [address] Internal Medicine 07/13/22 Rebuen Lance MD [address] [place] [address] Referring Physician Hematology 01/10/25 Reuben Lance MD [address] [place] [address] Referring Physician Hematology 01/17/25
--- OUTSIDE RECORDS SUMMARY | 2025-05-15 11:49 | XMS_ITS | Clinical Summary ---
Author Organization [facility] Guycristian malik Renate Address [address] [place] [address] Care Team Providers Care Md Psychiatry Name Role Phone Unavailable Primary Care Provider Unavailabl e Allergies Active Allergy Reactions Criticality Noted Date Comments Unclassified Drug Nausea and Vomiting Low 2 Unknown antibiotic with UTI, thinks its Cipro or Keflex Unknown antibiotic with UTI, thinks its Cipro or Keflex Unknown antibiotic with UTI, thinks its Cipro or Keflex Medications spironolactone (ALDACTONE) 100 mg tablet Take 100 mg by mouth daily. 3 Active pantoprazole (PROTONIX) 40 mg Tablet, Delayed Release (E.C.) Take 40 mg by mouth daily. Active Ozempic 2 mg/dose (8 mg/3 mL) Pen Injector Inject 2 mg by subcutaneous injection every 7 days. 5 Active losartan (COZAAR) 25 mg tablet Take 25 mg by mouth daily. Active HYDROcodone-charlotte taminophen (NORCO) 7.5-325 mg Tablet Take 1 Tablet by mouth 3 times daily. Active eszopiclone (LUNESTA) 3 mg Tablet Take 3 mg by mouth daily at bedtime. Active atorvastatin (LIPITOR) 20 mg tablet Take 20 mg by mouth daily. Active albuterol sulfate HFA 90 mcg/actuation aerosol inhaler Take 1 Puff by inhalation every 4 hours as needed for Other (See Comment). 5 Active Active Problems No known active problems Encounters Date Type Department Care Team Description 05/15/2025 11:45 AM CDT Office Visit [facility] Oncology and Hematology - Greg [address] [place] [address] Reuben Lance MD Arrived 04/10/2025 External Device Data STL ABSTRACTION Provider, Abstract 04/09/2025 External Device Data STL ABSTRACTION Provider, Abstract 03/12/2025 External Device Data STL ABSTRACTION Provider, Abstract 02/19/2025 External Device Data STL ABSTRACTION Provider, Abstract 02/14/2025 External Device Data STL ABSTRACTION Provider, Abstract 02/13/2025 External Device Data STL ABSTRACTION Provider, Abstract 02/12/2025 External Device Data STL ABSTRACTION Provider, Abstract from Last 3 Months Family History Medical History Relation Name Comments Diabetes Brother No Known Problems Child 1 No Known Problems Child 2 Cancer Father Diabetes Mother Heart Disease Mother Relation Name Status Comments Brother Alive Child 1 Alive Child 2 Alive Father Alive Mother Social History Tobacco Use Types Packs/Day Years Used Date Smoking Tobacco: Former Cigarettes 1 52.3 0 09/26/1972 - 12/31/2024 Smokeless Tobacco: Never Tobacco Cessation:Counseling Given: Not Answered Alcohol Use Standard Drinks/Week Comments Never 0 [...] F) 05/15/2025 11:31 AM CDT Respiratory Rate 15 02/06/2025 9:41 AM CDT Oxygen Saturation 96% 05/15/2025 11:31 AM CDT Inhaled Oxygen Concentration - - Weight 79.4 kg (175 lb) 05/15/2025 11:31 AM CDT Height 167.6 cm (5' 6) 05/15/2025 11:31 AM CDT Body Mass Index 28.25 05/15/2025 11:31 AM CDT Plan of Treatment Health Maintenance Due Date Last Done Comments DIABETES ANNUAL FOOT EXAM 1973 DIABETES ANNUAL RETINAL EXAM 1973 DIABETES MICROALBUMIN ANNUAL SCREEN 1973 LDL CHOLESTEROL ANNUAL 1973 DTAP/TDAP/TD VACCINES (1 - Tdap) 1974 Preventative Visit-Managed Medicaid 1974 BREAST CANCER SCREENING 1995 COLORECTAL SCREENING 02/08/2000 Colorectal Cancer Screening 02/08/2000 FIT-DNA Q 3 years 02/08/2000 FIT/FOBT Q 1 year 02/08/2000 Flex Sig/CT Colonography Q 5 years 02/08/2000 ZOSTER VACCINE (1 of 2) 2005 RSV VACCINE (60+ or ) (1 - Risk 60-74 years 1-dose series) 2015 OSTEOPOROSIS SCREENING 02/08/2020 DIABETES HBA1C Q 6 MONTHS 08/30/2024 02/29/2024, 11/2021 INFLUENZA VACCINE (#1) 2025 9, 06/30/2015, 07/09/2013 PNEUMOCOCCAL VACCINE 50+ YEARS Completed 1 10/10/2020, 08/10/2021, 08/04/2020 Insurance
--- OUTSIDE RECORDS SUMMARY | 2025-05-15 11:49 | XMS_ITS ---
Author Organization [facility] Address [address] [place] [address] Care Team Providers Care Sole Tacker Name Role Phone Dorian Tello MD Primary Care Provider Dorian Tello MD Unavailable [phone] Reuben Lance MD Unavailable [phone] Reuben Lance MD Unavailable [phone] Active Problems Problem Noted Date Diagnosed Date Diastolic dysfunction 01/25/2025 Assessment & Plan (01/25/2025 8:29 AM CDT): Per echo: Grade II diastolic dysfunction. EF 75% - gerry has signed off and will follow up as outpatient - monitor on tele Bradycardia 01/24/2025 Assessment & Plan (01/25/2025 8:30 AM CDT): William immediatly post op, has now resolved - cards was consulted and signed off - TTE done - 14 day holter monitor at [place] - monitor on tele Adenocarcinoma of lower [...] (07/19/2022): Added automatically from request for surgery [id number] Diabetes mellitus Overview (01/23/2025): reports A1C 6.1 in 06/2022 Assessment & Plan (01/23/2025 11:26 AM CDT): Pt reported HgA1c: 5.5 07/2024 - holding of on home PO agents - SSI - monitor BS Current Treatment and Therapy Plans No current plan information found. Past Treatment and Therapy Plans No past plan information found. Lifetime Dose Tracking * Chemical Lifetime Dose Automatic Entry Manual Entr y DLP 347 mGycm 347 mGycm 0 mGycm
--- OUTSIDE RECORDS SUMMARY | 2025-05-15 11:49 | XMS_ITS | Clinical Summary ---
Author Organization [facility] Address [address] [place] [address] Care Team Providers Care Trolley Collector Name Role Phone Unavailable Primary Care Provider Unavailabl e Source Comments [facility],non-owned Affiliates and Associated Physician Practices is amultiple site organization consisting of ambulatory clinics and hospital sitesin [place], [place], [place] and [place]. This disclosure is being madepursuant to the Care Everywhere program and may not contain all information available regarding this patient. Last updated 18.[employer] [facility] Allergies No known active allergies Medications * Be aware that medications may not be up to date on this document. Alwaysverify current medications with the patient. atorvastatin (LIPITOR) 20 MG tablet atorvastatin 20 mg tablet TAKE ONE TABLET BY MOUTH EVERY DAY Active eszopiclone (LUNESTA) 3 MG tablet eszopiclone 3 mg tablet TAKE ONE TABLET BY MOUTH NIGHTLY AT BEDTIME DX G47.00 Active HYDROcodone-charlotte taminophen (NORCO) 7.5-325 MG tablet hydrocodone 7.5 mg-acetaminophen 325 mg tablet one tablet three times a day for chronic pain DX: G89.4 Active losartan (COZAAR) 25 MG tablet On hold during hep c treatment Active metFORMIN ER 24hr (GLUCOPHAGE XR) 500 MG tablet 2 times daily Active pantoprazole EC (PROTONIX) 40 MG tablet [...] e alcohol) Very rare- nothing in years Comments Unknown Sex and Gender Information Value Date Recorded Sex Assigned at Not on file Legal Sex Female 6:22 PM CRM ARCHITECT Gender Identity Not on file Sexual Orientation [...] 1:27 PM CDT Height 170.2 cm (5' 7) 12/15/2020 12:4 4 PM CDT Body Mass [...] - COLON CA SCREENING 1955 MAMMOGRAM 1955 DTAP/TDAP/TD VACCINES (1 - Tdap) 1974 [...] 09/2020 COVID-19 VACCINE ( - season) 2024 DEPRESSION SCREENING 09/26/2024 DIABETES - URINE PROTEIN SCREENING 09/26/2024 MEDICARE AWV CALENDAR YEAR 2024 INFLUENZA VACCINE (#1) 2025 9, 06/30/2015, 07/09/2013 HEPATITIS C SCREENING Completed 06/09/2021 , 02/20/2021, [...] C RNA QUANTITATIVE Routine 10/27/2020 1:40 PM CRM ARCHITECT Chronic hepatitis C without hepatic coma from Last 3 Months or Most Recently Relevant to Health Maintenance Results * (ABNORMAL) COMP MET PANEL (EXTERNAL RESULT ENTRY) (01/14/2021) Pathologist [facility] Glucose (EXTERNAL) 138(A) 70 - 99 [...] (EXTERNAL) Blood BLOOD SPECIMEN / Unknown 01/14/2021 us Historical Provider LAB - CHEMISTRY ORDERABLE S Final Result * (ABNORMAL) HEPATITIS C RNA QUANTITATIVE (10/27/2020 1:40 PM CRM ARCHITECT) Pathologist [facility] Hepatitis C Virus Quant by PCR, Blood 3,531,631 (H) Not detected IU/mL 10/30/2020 11:09 AM CRM ARCHITECT [facility] Hepatitis C RNA PCR, Interp Detected( A) Not Detected 10/30/2020 11:09 AM [facility] Blood BLOOD SPECIMEN / Unknown Lab Venipuncture / Unknown 10/27/2020 1:40 PM CRM ARCHITECT 10/27/2020 3:32 PM CRM ARCHITECT Narrative [facility] - 10/30/2020 11:09 AM CRM ARCHITECT The Hepatitis C viral (HCV) RNA analysis utilized a serum sample, real-time reverse art historian PCR, and is reported as Not Detected, [...] the isolation of HCV RNA with reverse art historian of genomic HCV RNA followed by real-time PCR in the presence of an unrelated RNA internal control. The internal control ensures that RNA is isolated, and that no general significant inhibitors of the RT-PCR process are present. The analysis was performed using a U.S. FDA approved test methodology ([employer] Real Time HCV). Yoli Olvera SAMPLER OVENS-RN TRANSITION LAB - CHEMISTRY JIMBO HDZ Final Result [facility] [address] [place] [address], [facility] [phone] from Last 3 Months or Most Recently Relevant to Health Maintenance Insurance MEDICARE MEDICAID - OUT OF STATE MEDICARE MEDICAID [place]F [place] NO INSURANCE Member Subscriber Plan / Payer (Ef fective for All Dates) Name:Sage Macias Member ID:Not on file Relation to Subscriber:Not on file Name:SAGE MACIAS Subscriber ID:Not on file (Home) Address: [place] [address] Payer ID:Not on file Group ID:Not on file Type:Self Pay Address: [place], [place]
[2025-05-15 13:52] LABS: Alanine Aminotransferase 24 U/L (6-35); Albumin Level 4.2 g/dL (3.5-5.1); Alkaline Phosphatase 67 U/L (38-126); Anion Gap 5 mmol/L (4-12); Aspartate Amino Transferase 33 U/L (14-36); Bilirubin,Total 0.6 mg/dL (0.2-1.3); Blood Urea Nitrogen 14 mg/dL (7-17); Calcium 9.8 mg/dL (8.4-10.2); Carbon Dioxide 24 mmol/L (22-30); Chloride 106 mmol/L (98-107); Estimated Glomerular Filt Rate 47; Glucose 101 mg/dL (65-110); Potassium 4.3 mmol/L (3.4-5.0); Sodium 135 mmol/L (137-145); Total Protein 7.1 g/dL (6.3-8.2)
== END 2025-05-15 11:16 | disposition home or self-care (01) ==
LOC: ANHLAB 11:16
PROVIDERS: PCP Internal Medicine; Visit Provider Internal Medicine Hematology & Oncology
DX: C34.32 Malignant neoplasm of lower lobe, left bronchus or lung (principal)
CPT/HCPCS: 36415; 80047; 80053; 85025

== ENCOUNTER 2025-05-23 11:59 | Outpatient (CLI) | payer OTHER, SELFPAY ==
--- NOTE | ~2025-05-23 | PE_ITS ---
EXAMINATION: PET skull to mid thigh DATE: 05/23/2025 13:46 INDICATION: Left lower lobe lung cancer post resection 4 months prior. TECHNIQUE: Blood glucose level was 96 mg/dL. 10.702 mCi of 18-fluorodeoxyglucose (18-FDG) was administered i.v. Low dose computed tomography (CT) images were acquired from the base of the brain to the proximal thighs for attenuation correction and anatomic localization. Positron emission tomography (PET) images were acquired in the same distribution beginning 54 minutes after injection. Images including fused PET/CT images were reconstructed in axial, coronal, and sagittal planes. Automated exposure control technique was employed. The dose- length product was 997.28mGy-cm. COMPARISON: None FINDINGS: Head/neck: There is symmetric increased activity in the oral cavity, palatine tonsils, parotid glands, submandibular glands, laryngeal muscles and ocular muscles without CT correlate, likely physiologic. No pathologically enlarged cervical lymphadenopathy or suspicious foci of increased FDG uptake in the visualized head or neck. Chest: Mild emphysema. Interval left lower lobectomy. Again seen are a few small groundglass opacities without FDG activity in both lungs. There is a new 5 mm pleural-based nodule in the right lower lobe without FDG activity. No pleural effusion. Heart size is normal. No pericardial effusion. Thoracic aorta is normal in caliber. No pathologically enlarged or FDG avid thoracic lymphadenopathy. Small sliding-type hiatal hernia. Abdomen/pelvis/proximal thighs: Physiologic renal accumulation and excretion of FDG activity in the kidneys, bladder and along portions of ureters. Normal degree and heterogenous pattern of increased uptake throughout the liver without radiologic correlate or dominant FDG avid lesion. The gallbladder, pancreas, spleen and bilateral adrenal glands are normal. Mild uptake scattered throughout the bowels without radiologic correlate, also likely physiologic. Normal appendix. The uterus is not identified and has likely been surgically resected. No other abnormal foci of increased FDG uptake or pathologically enlarged lymphadenopathy in the abdomen, pelvis or proximal thighs. Musculoskeletal: Mild likely physiologic synovial uptake at the left acromioclavicular joint. Additional mild uptake along the distal right gluteus medius tendon where there is some associated calcification suggestive of calcific tendinitis. No suspicious lytic, blastic or abnormally FDG avid bone lesions.. IMPRESSION: 1. Status post left lower lobectomy with resection of the previously seen FDG avid mass consistent with reported lung cancer. No evident metastatic disease. Reviewed, dictated and finalized at location A. IMPRESSION: 1. Status post left lower lobectomy with resection of the previously seen FDG a vid mass consistent with reported lung cancer. No evident metastatic disease.
--- OUTSIDE RECORDS SUMMARY | 2025-05-23 12:02 | XMS_ITS | Clinical Summary ---
Author Organization [facility] Amandaarchana malik [facility] Address [address] [facility] [address] Care Team Providers Care Funeral Service Manager Name Role Phone Unavailable Primary Care Provider [...] Encounters Date Type Department Care Team Description 05/16/2025 Orders Only [facility] Oncology and Hematology - Greg [address] [place] [address] Reuben Lance MD 05/15/2025 11:45 AM CDT Office Visit [facility] Oncology and Hematology - Greg [address] [place] [address] Reuben Lance MD Malignant neoplasm of lower lobe of left lung (CMS/HCC) (Primary Dx) 04/10/2025 External Device Data STL ABSTRACTION Provider, [...] 05/15/2025 11:31 AM CDT Plan of Treatment Upcoming Encounters Date Type Department Care Team (Late st Contact Info) Description 06/03/2025 4:00 PM CDT Telephone Check Up [facility] Oncology and Hematology - Greg [address] [place] [id number] Rimma Cee MD [address] [place] [phone] Health Maintenance Due Date Last Done Comments [...] 50+ YEARS Completed 1 10/10/2020, 08/10/2021, 08/04/2020 Procedures Procedure Name Priority Date/Time Associated Diagnosis Comments BASIC METABOLIC PANEL Routine 05/15/2025 11:01 AM CDT COMPREHENSIVE METABOLIC PANEL Routine 05/15/2025 11:00 AM CDT from Last 3 Months Results * BASIC METABOLIC PANEL (05/15/2025 11:01 AM CDT) Blood us Reuben Lance MD CHEMISTRY ORDERABLES Final Resu lt * COMPREHENSIVE METABOLIC PANEL (05/15/2025 11:00 AM CDT) Blood us Reuben Lance MD CHEMISTRY ORDERABLES Final Resu lt from Last 3 Months Insurance [place] MED[place]
--- OUTSIDE RECORDS SUMMARY | 2025-05-23 12:02 | XMS_ITS | Clinical Summary ---
Author Organization [facility] Address [address] [place] [address] Care Team Providers Care Technology Sales Specialist Name Role Phone Dorian Tello MD Primary Care Provider Dorian Tello MD Unavailable [phone] Reuben Lance MD Unavailable [phone] Reuben Lance MD Unavailable [phone] Allergies Active Allergy Reactions Criticality Noted [...] (07/19/2022): Added automatically from request for surgery [id number] Diabetes mellitus Overview (01/23/2025): reports A1C 6.1 in 06/2022 Assessment & Plan (01/23/2025 11:26 AM CDT): Pt reported HgA1c: 5.5 07/2024 - holding of on home PO agents - SSI - monitor BS Encounters Date Type Department Care Team Description 05/06/2025 9:00 AM CDT Office Visit 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 Gender Identity Not on file Sexual Orientation [...] 08/10/2021, 05/2020 Medical Devices Implanted Type Area Service Order Dispatcher Chief Device Identifier Shelf Expiration Date Model / Serial / Lot Titanium Left: Breast Description:Left breast steffen nium implant [employer] Set Implant Arthrex Fibertak Biceps Sterile Latex Free Ar-[id number] - [id number] Implanted:Qty: 1 on 08/24/2022 by Sony Banks MD at [facility] Right: Shoulder [employer] 03/25/2027 AR-3670 / / [id number] [employer] Swivelock C 4.75mm 19.1mm Closed Eyelet Vent Providence Suture Ar-2324bcc - [id number] Implanted:Qty: 1 on 08/24/2022 by Sony Banks MD at [facility] Right: Shoulder [employer] 06/25/2026 [id number] / / [id number] Procedures Procedure Name Priority Date/Time Associated Diagnosis Comments CT CHEST WO CONTRAST Schedule Routine, Read Routine (OP Routine) 05/06/2025 7:27 AM CDT Adenocarcinoma of lower lobe of left lung (HCC) EGFR Routine 01/24/2025 10:20 PM CDT HEMOGLOBIN A1C Routine 07/29/2022 11:41 AM CDT Type 2 diabetes mellitus with other specified complication, unspecified whether check inspector insulin use (HCC) from Last 3 Months [...] Ashley M.D. Andres De La O MD [facility] CT PROCEDURES Final Result * (ABNORMAL) eGFR [...] MD LAB BLOOD ORDERAB LES Final Result [facility] Department [place] [address] * Hemoglobin A1c (07/29/2022 11:41 AM CDT) Blood us Sony Banks MD LAB BLOOD ORDERAB LES Final Result EXTERNAL LAB from Last 3 Months or Most Recently Relevant to Health Maintenance Insurance [facility] Advance Directives For more information, please contact: [phone] * Full Code (Latest Code Status on File) Date Activated Date Inactivated Comments 01/22/2025 7:19 PM 01/28/2025 6:47 PM Care Teams Technology Sales Specialist Relationship Specialty Start Date End Date Dorian Tello MD [address] [address] [place] [address] PCP - General Internal Medicine 07/13/22 Dorian Tello MD [address] [facility] [address] [place] [address] Internal Medicine 07/13/22 Reuben Lance MD [address] [place] [address] Referring Physician Hematology 01/10/25 Reuben Lance MD [address] [place] [address] Referring Physician Hematology 01/17/25
--- OUTSIDE RECORDS SUMMARY | 2025-05-23 12:02 | XMS_ITS | Clinical Summary ---
Author Organization [facility] Address [address] [place] [address] Care Team Providers Care Vp Communications Name Role Phone Unavailable Primary Care Provider Unavailabl e Source Comments [facility],non-owned Affiliates and Associated Physician Practices is amultiple site organization consisting of ambulatory clinics and hospital sitesin [place], [place], [place] and [place]. This disclosure is being madepursuant to the Care Everywhere program and may not contain all information available regarding this patient. Last updated 18.[employer] [facility] Allergies No known active allergies Medications * [...] on file Legal Sex Female 6:22 PM GIANT TIRE REPAIRER Gender Identity Not on file Sexual Orientation [...] C RNA QUANTITATIVE Routine 10/27/2020 1:40 PM GIANT TIRE REPAIRER Chronic hepatitis C without hepatic coma from Last 3 Months or Most Recently Relevant to Health Maintenance Results * (ABNORMAL) COMP MET PANEL (EXTERNAL RESULT ENTRY) (01/14/2021) Pathologist [facility] Glucose (EXTERNAL) 138(A) 70 - 99 mg/dL [...] HEPATITIS C RNA QUANTITATIVE (10/27/2020 1:40 PM GIANT TIRE REPAIRER) Pathologist [facility] Hepatitis C Virus Quant by PCR, Blood 3,531,631 (H) Not detected IU/mL 10/30/2020 11:09 AM GIANT TIRE REPAIRER [facility] Hepatitis C RNA PCR, Interp Detected( A) Not Detected 10/30/2020 11:09 AM [facility] Blood BLOOD SPECIMEN / Unknown Lab Venipuncture / Unknown 10/27/2020 1:40 PM GIANT TIRE REPAIRER 10/27/2020 3:32 PM GIANT TIRE REPAIRER Narrative [facility] - 10/30/2020 11:09 AM GIANT TIRE REPAIRER The Hepatitis C viral (HCV) RNA analysis utilized a serum sample, real-time reverse corporate wellness coordinator PCR, and is reported as Not Detected, [...] the isolation of HCV RNA with reverse corporate wellness coordinator of genomic HCV RNA followed by real-time PCR in the presence of an unrelated RNA internal control. The internal control ensures that RNA is isolated, and that no general significant inhibitors of the RT-PCR process are present. The analysis was performed using a U.S. FDA approved test methodology ([employer] Real Time HCV). Yoli Olvera MASTER GLAZIER-INSPECTOR FABRIC LAB - CHEMISTRY JIMBO HDZ Final Result [facility] [address] [place] [address], [facility] [phone] from Last 3 Months or Most Recently [...] file (Home) Address: [place] [address] Payer ID:Not on file Group ID:Not on file Type:Self Pay Address: [place], [place]
--- OUTSIDE RECORDS SUMMARY | 2025-05-23 12:02 | XMS_ITS ---
Author Organization [facility] Address [address] [place] [address] Care Team Providers Care Wood Form Builder Name Role Phone Dorian Tello MD Primary Care Provider Dorian Tello MD Unavailable [phone] Reuben Lance MD Unavailable [phone] Reuben Lance MD Unavailable [phone] Active Problems Problem Noted Date Diagnosed [...] done - 14 day holter monitor at OR - monitor on tele Adenocarcinoma of lower [...] (07/19/2022): Added automatically from request for surgery [id number] Diabetes mellitus Overview (01/23/2025): reports A1C 6.1 [...]
== END 2025-05-23 12:00 | disposition home or self-care (01) ==
PROVIDERS: PCP Internal Medicine; Visit Provider Internal Medicine Hematology & Oncology
DX: C34.32 Malignant neoplasm of lower lobe, left bronchus or lung (principal)
CPT/HCPCS: 78815; A9552

== ENCOUNTER 2025-07-22 13:04 | Emergency (ER) | payer OTHER, SELFPAY ==
--- NOTE | ~2025-07-22 | XR_ITS ---
EXAMINATION: XR chest 2V, 07/22/2025 14:46 CDT HISTORY: productive cough COMPARISON: No comparisons available. Technique: 2 views obtained. Findings: The lungs are clear, no effusion. No pneumothorax. Heart is normal size. Mediastinal and hilar contours are within normal limits. Bony thorax no acute abnormality. Impression: No acute cardiopulmonary abnormality. Reviewed, dictated and finalized at location P. Impression: No acute cardiopulmonary abnormality.
[2025-07-22 13:14] VITALS: BP 133/73; PULSE 89; RESP 16; TEMP 36.5; O2SAT 99
--- NOTE | 2025-07-22 13:38 | ED.FEMALEGU ---
HPI - Female Genitourinary General Chief complaint: Urogenital-Female <ENRIQUE Mccrary - Last Filed: 07/22/25 13:43> Stated complaint: left sided pain x 2 days. Strong urine smell <ENRIQUE Mccrary - Last Filed: 07/22/25 13:43> Time Seen by Provider: 07/22/25 14:33 <ENRIQUE Mccrary - Last Filed: 07/22/25 13:43> Focused HPI: Two days of body aches, fatigue and generalized malaise. She has hx of Lobectomy 01/22 left side for adenocarcinoma of the lung at [facility]. and she now has pain at the incision site that has been there for two days with a cough from a tickle in her throat productive of clear sputum. No fevers. No hemoptysis. She states her urine has smelled strong for the past week. No burning/urgency/frequency or hematuria. Decreased appetite for the past couple of days as nothing sounds good. No recent Weight loss. No recent travel and no known ill contacts, but states she has been out in public a lot over the past couple of weeks. GENERAL: Well-appearing, well-nourished, and in no acute distress. HEAD: Normocephalic, atraumatic. CHEST: Clear to auscultation. ?No respiratory distress. HEART: Regular rate and rhythm.? NEURO: ?Alert and oriented x3. Patient screened in triage and initial orders placed.? ?Additional care and disposition to be based upon?diagnostic testing and treatment. <ENRIQUE Mccrary - Last Filed: 07/22/25 13:43> Source: patient <ENRIQUE Mccrary - Last Filed: 07/22/25 13:43> Mode of arrival: ambulatory <ENRIQUE Mccrary - Last Filed: 07/22/25 13:43> Limitations: no limitations <ENRIQUE Mccrary - Last Filed: 07/22/25 13:43> History of Present Illness HPI Narrative: Agree with HPI <Eulogio Morales MD - Last Filed: 07/22/25 17:44> Related Data Home medications: Home Medications ?Medication ?Instructions ?Recorded ?Confirmed ?Last Taken ?Type atorvastatin 20 mg tablet 20 mg PO DAILY 12/07/24 12/07/24 Unknown History eszopiclone 3 mg tablet 3 mg PO HS 12/07/24 12/07/24 Unknown History hydrocodone 7.5 mg-acetaminophen 1 tablet PO TID 12/07/24 12/07/24 Unknown History 325 mg tablet losartan 25 mg tablet 25 mg PO HS 12/07/24 12/07/24 Unknown History pantoprazole 40 mg tablet,delayed 40 mg PO DAILY 12/07/24 12/07/24 Unknown History release semaglutide 2 mg/dose (8 mg/3 mL) 2 mg subcut WEEKLY 12/07/24 12/07/24 Unknown History subcutaneous pen injector (Ozempic) spironolactone 100 mg tablet 100 mg PO HS 12/07/24 12/07/24 Unknown History <ENRIQUE Mccrary - Last Filed: 07/22/25 13:43> Allergies/Adverse reactions: Allergies Allergy/AdvReac Type Severity Reaction Status Date / Time No Known Allergies Allergy Verified 12/12/24 09:03 <ENRIQUE Mccrary - Last Filed: 07/22/25 13:43> Review of Systems Review of Systems: All systems reviewed & are unremarkable except as noted in HPI and below <Eulogio Morales MD - Last Filed: 07/22/25 17:44> Constitutional: Constitutional: Reports no additional constitutional complaints <Eulogio Morales MD - Last Filed: 07/22/25 17:44> ENT: Reports system reviewed and no additional complaints, except as documented <Eulogio Morales MD - Last Filed: 07/22/25 17:44> Cardiovascular: Cardiovascular: Reports no additional cardiovascular complaints <Eulogoi Morales MD - Last Filed: 07/22/25 17:44> Respiratory: Respiratory: Reports no additional respiratory complaints <Eulogio Morales MD - Last Filed: 07/22/25 17:44> PMFSH Past Medical History Medical History: Medical History (Updated 07/22/25 @ 17:44 by Eulogio Morales MD) Lung cancer History of diabetes mellitus History of hyperlipidemia History of hypertension <ENRIQUE Mccrary - Last Filed: 07/22/25 13:43> Surgical History Surgical History: Surgical History (Updated 07/22/25 @ 17:43 by Eulogio Morales MD) History of lobectomy of lung <ENRIQUE Mccrary - Last Filed: 07/22/25 13:43> Family History Family History: Family History (Updated 04/23/16 @ 23:19 by DOCTOR UNKNOWN) Sibling Family history of diabetes mellitus in first degree relative Mother Family history of heart disease in male family member before age 55 Other Diabetes mellitus <ENRIQUE Mccrary - Last Filed: 07/22/25 13:43> Social History Social History: Social History Smoking status: Heavy tobacco smoker Alcohol intake: current <ENRIQUE Mccrary - Last Filed: 07/22/25 13:43> Exam Narrative: GENERAL: Well-appearing, well-nourished, and in no acute distress. HEAD: Normocephalic, atraumatic. ENT: Mucous membranes moist. NECK: Supple. CHEST: Clear to auscultation. No respiratory distress. HEART: Regular rate and rhythm. Normal peripheral pulses. ABDOMEN: Soft, nontender, nondistended. EXTREMITIES: Normal range of motion. No edema. SKIN: Warm, dry, no rash. NEURO: Alert and oriented x3. PSYCH: Normal mood and affect. <Eulogio Morales MD - Last Filed: 07/22/25 17:44> Course Course Emergency Course: Unremarkable evaluation. Appropriate for discharge home. <Eulogio Morales MD - Last Filed: 07/22/25 17:44> Vital Signs Vital signs: Vital Signs Temperature 97.7 F 07/22/25 13:14 Pulse Rate 89 07/22/25 13:14 Respiratory Rate 16 07/22/25 13:14 Blood Pressure 133/73 07/22/25 13:14 Pulse Oximetry 99 07/22/25 13:14 Oxygen Delivery Room Air 07/22/25 13:14 Temperature 97.7 F 07/22/25 13:14 Pulse Rate 89 07/22/25 13:14 Respiratory Rate 16 07/22/25 13:14 Blood Pressure 133/73 07/22/25 13:14 Pulse Oximetry 99 07/22/25 13:14 Oxygen Delivery Room Air 07/22/25 13:14 <ENRIQUE Mccrary - Last Filed: 07/22/25 13:43> Vital Signs Temperature 97.7 F 07/22/25 13:14 Pulse Rate 89 07/22/25 13:14 Respiratory Rate 16 07/22/25 13:14 Blood Pressure 133/73 07/22/25 13:14 Pulse Oximetry 99 07/22/25 13:14 Oxygen Delivery Room Air 07/22/25 13:14 Temperature 97.7 F 07/22/25 13:14 Pulse Rate 89 07/22/25 13:14 Respiratory Rate 16 07/22/25 13:14 Blood Pressure 133/73 07/22/25 13:14 Pulse Oximetry 99 07/22/25 13:14 Oxygen Delivery Room Air 07/22/25 13:14 <Eulogio Morales MD - Last Filed: 07/22/25 17:44> MDM - Female Genitourinary Lab Data Attestation: I reviewed the patient's lab results. <Eulogio Morales MD - Last Filed: 07/22/25 17:44> Result diagrams: 07/22/25 14:29 07/22/25 14:29 <ENRIQUE Mccrary - Last Filed: 07/22/25 13:43> Labs: Lab Results 07/22/25 Range/Units 14:29 WBC 9.3 (4.5-10.0) K/mm3 RBC 4.71 (4.2-5.4) M/mm3 Hgb 14.4 (12.0-15.0) g/dL Hct 43.7 (37.0-47.0) % MCV 92.8 (80-100) fl MCH 30.6 (26-34) pg MCHC 33.0 (32-36) g/dl RDW 12.8 (11.5-14.5) % Plt Count 313 (150-375) k/mm3 MPV 9.9 (7.4-10.4) fl Immature Gran % (Auto) 0.2 (0-0.5) % Neut % (Auto) 59.1 (45.5-73.1) % Lymph % (Auto) 28.9 (18.3-44.2) % [place] % (Auto) 7.4 (2.6-8.5) % Eos % (Auto) 3.9 (0-4.4) % Baso % (Auto) 0.5 (0.2-1.2) % Lymph # (Auto) 2.69 (0.9-3.2) K/mm3 [place] # (Auto) 0.7 H (0.1-0.6) K/mm3 Eos # (Auto) 0.4 H (0-0.3) K/mm3 Baso # (Auto) 0.1 (0.0-0.1) K/mm3 Abs Immat Gran (auto) 0.02 (0.00-0.031) K/mm3 Absolute Neuts (auto) 5.5 (1.3-6.7) K/mm3 Absolute Nucleated RBC 0.000 (0.0-0.012) K/mm3 Nucleated RBC % 0.0 (0.0-0.2) % Sodium 139 (137-145) mmol/L Potassium 3.5 (3.4-5.0) mmol/L Chloride 102 (98-107) mmol/L Carbon Dioxide 27 (22-30) mmol/L Anion Gap 10 (4-12) mmol/L BUN 12 (7-17) mg/dL Creatinine 1.13 H (0.7-1.0) mg/dL Estim Creat Clear Calc 39 ml/min Estimated GFR 48 L (59 - ) Glucose 91 (65-110) mg/dL Calcium 9.7 (8.4-10.2) mg/dL Total Bilirubin 0.7 (0.2-1.3) mg/dL AST 25 (14-36) U/L ALT 24 (6-35) U/L Alkaline Phosphatase 66 (38-126) U/L Total Protein 7.7 (6.3-8.2) g/dL Albumin 4.5 (3.5-5.1) g/dL Urine Color Yellow (Yellow) Urine Appearance Cloudy H (Clear) Urine pH 6.0 (5.0-9.0) Ur Specific [place] 1.016 (1.001-1.035) Urine Protein Negative (Negative) mg/dL Urine Glucose (UA) Negative (Negative) mg/dL Urine Ketones Negative (Negative) mg/dL Ur Blood (Man) Negative (Negative) Urine Nitrate Positive H (Negative) Urine Bilirubin Negative (Negative) Urine Urobilinogen 0.2 (<2.0) mg/dL Leukocyte Esterase Rfl 1+ H (Negative) JAY/UL Urine RBC 0-2 (0-2) /hpf Urine WBC 11-20 H (0-3) /hpf Ur Squamous Epith Cells Few (Few) /hpf Urine Bacteria 4+ H /hpf Urine Casts 3-5 Influenza A (RT-PCR) Negative (Negative) Influenza B (RT-PCR) Negative (Negative) RSV (RT-PCR) Negative (Negative) SARS-CoV-2 RNA (RT-PCR) Negative (Negative) <Krystal Yusuf, JAVA SCALA DEVELOPER-C - Last Filed: 07/22/25 13:43> Lab Results 07/22/25 Range/Units 14:29 WBC 9.3 (4.5-10.0) K/mm3 RBC 4.71 (4.2-5.4) M/mm3 Hgb 14.4 (12.0-15.0) g/dL Hct 43.7 (37.0-47.0) % MCV 92.8 (80-100) fl MCH 30.6 (26-34) pg MCHC 33.0 (32-36) g/dl RDW 12.8 (11.5-14.5) % Plt Count 313 (150-375) k/mm3 MPV 9.9 (7.4-10.4) fl Immature Gran % (Auto) 0.2 (0-0.5) % Neut % (Auto) 59.1 (45.5-73.1) % Lymph % (Auto) 28.9 (18.3-44.2) % [place] % (Auto) 7.4 (2.6-8.5) % Eos % (Auto) 3.9 (0-4.4) % Baso % (Auto) 0.5 (0.2-1.2) % Lymph # (Auto) 2.69 (0.9-3.2) K/mm3 [place] # (Auto) 0.7 H (0.1-0.6) K/mm3 Eos # (Auto) 0.4 H (0-0.3) K/mm3 Baso # (Auto) 0.1 (0.0-0.1) K/mm3 Abs Immat Gran (auto) 0.02 (0.00-0.031) K/mm3 Absolute Neuts (auto) 5.5 (1.3-6.7) K/mm3 Absolute Nucleated RBC 0.000 (0.0-0.012) K/mm3 Nucleated RBC % 0.0 (0.0-0.2) % Sodium 139 (137-145) mmol/L Potassium 3.5 (3.4-5.0) mmol/L Chloride 102 (98-107) mmol/L Carbon Dioxide 27 (22-30) mmol/L Anion Gap 10 (4-12) mmol/L BUN 12 (7-17) mg/dL Creatinine 1.13 H (0.7-1.0) mg/dL Estim Creat Clear Calc 39 ml/min Estimated GFR 48 L (59 - ) Glucose 91 (65-110) mg/dL Calcium 9.7 (8.4-10.2) mg/dL Total Bilirubin 0.7 (0.2-1.3) mg/dL AST 25 (14-36) U/L ALT 24 (6-35) U/L Alkaline Phosphatase 66 (38-126) U/L Total Protein 7.7 (6.3-8.2) g/dL Albumin 4.5 (3.5-5.1) g/dL Urine Color Yellow (Yellow) Urine Appearance Cloudy H (Clear) Urine pH 6.0 (5.0-9.0) Ur Specific [place] 1.016 (1.001-1.035) Urine Protein Negative (Negative) mg/dL Urine Glucose (UA) Negative (Negative) mg/dL Urine Ketones Negative (Negative) mg/dL Ur Blood (Man) Negative (Negative) Urine Nitrate Positive H (Negative) Urine Bilirubin Negative (Negative) Urine Urobilinogen 0.2 (<2.0) mg/dL Leukocyte Esterase Rfl 1+ H (Negative) JAY/UL Urine RBC 0-2 (0-2) /hpf Urine WBC 11-20 H (0-3) /hpf Ur Squamous Epith Cells Few (Few) /hpf Urine Bacteria 4+ H /hpf Urine Casts 3-5 Influenza A (RT-PCR) Negative (Negative) Influenza B (RT-PCR) Negative (Negative) RSV (RT-PCR) Negative (Negative) SARS-CoV-2 RNA (RT-PCR) Negative (Negative) <Eulogio Morales MD - Last Filed: 07/22/25 17:44> Imaging Data Radiologist's impression: ITS Impressions Chest X-Ray 07/22/25 15:00 Impression: No acute cardiopulmonary abnormality. <Eulogio Morales MD - Last Filed: 07/22/25 17:44> Discharge Plan Discharge Clinical Impression: Acute viral syndrome <ENRIQUE Mccrary - Last Filed: 07/22/25 13:43> Patient Disposition: Home <ENRIQUE Mccrary - Last Filed: 07/22/25 13:43> Condition: Stable <ENRIQUE Mccrary - Last Filed: 07/22/25 13:43> Instructions: Viral Syndrome (ED) <ENRIQUE Mccrary - Last Filed: 07/22/25 13:43> Additional Instructions: As discussed you have a viral illness. Unfortunately there are no specific medications we can give you to make the illness end faster. Antibiotics do not work for viral illnesses. However, you can take Acetaminophen or Ibuprofen to help with fevers and pain. Stay well hydrated and rested. Return to the emergency department if your fevers and chills continue to worse after 5 days, if you develop worsening cough with thick sputum, or are unable to stay hydrated. Contact your primary care provider in the next few days for a re-evaluation and to make sure your symptoms are improving. <ENRIQUE Mccrary - Last Filed: 07/22/25 13:43> Patient Language: Romanian <ENRIQUE Mccrary - Last Filed: 07/22/25 13:43> Prescriptions: No Action atorvastatin 20 mg tablet 20 mg PO DAILY spironolactone 100 mg tablet 100 mg PO HS pantoprazole 40 mg tablet,delayed release (DR/EC) 40 mg PO DAILY losartan 25 mg tablet 25 mg PO HS eszopiclone 3 mg tablet 3 mg PO HS hydrocodone-acetaminophen 7.5-325 mg tablet 1 tablet PO TID Ozempic 2 mg/dose (8 mg/3 mL) pen injector 2 mg subcut WEEKLY Patient Comments: TUESDAYS <ENRIQUE Mccrary - Last Filed: 07/22/25 13:43> Follow-up/Referrals: Tello,Dorian Carroll MD [Primary Care Provider] - 1 Week <ENRIQUE Mccrary - Last Filed: 07/22/25 13:43>
[2025-07-22 14:35] LABS: Hematocrit 43.7 % (37.0-47.0); Hemoglobin 14.4 g/dL (12.0-15.0); Immature Granulocyte Percent A 0.2 % (0-0.5); Lymphocytes Absolute Auto 2.69 K/mm3 (0.9-3.2); Mean Corpuscular HGB Conc 33.0 g/dl (32-36); Mean Corpuscular Hemoglobin 30.6 pg (26-34); Mean Corpuscular Volume 92.8 fl (80-100); Nucleated Red Blood Cells Absolute Auto 0.000 K/mm3 (0.0-0.012); Nucleated Red Blood Cells Perc 0.0 % (0.0-0.2); Platelet Count Result 313 k/mm3 (150-375); Red Blood Count 4.71 M/mm3 (4.2-5.4); White Blood Count 9.3 K/mm3 (4.5-10.0)
--- OUTSIDE RECORDS SUMMARY | 2025-07-22 14:36 | XMS_ITS | Clinical Summary ---
Author Organization [facility] Address [address] [place] [address] Care Team Providers Care Cloth Seconds Sorter Name Role Phone Unavailable Primary Care Provider Unavailabl e Source Comments [facility],non-owned Affiliates and Associated Physician Practices is amultiple site organization consisting of ambulatory clinics and hospital sitesin [place], [place], [place] and [place]. This disclosure is being madepursuant to the Care Everywhere program and may not contain all information available regarding this patient. 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 Gender Identity Not on file Sexual Orientation [...] A1C 10/27/2020 DIABETES-SERUM CREATININE 01/14/2022 01/14/2021, 09/2020 DEPRESSION SCREENING 09/26/2024 DIABETES - URINE PROTEIN SCREENING 09/26/2024 MEDICARE AWV CALENDAR YEAR 2024 COVID-19 VACCINE ( season) 2025 INFLUENZA VACCINE (#1) 2025 9, 06/30/2015, 07/09/2013 [...] C RNA QUANTITATIVE Routine 10/27/2020 1:40 PM COPYRIGHT CLERK Chronic hepatitis C without hepatic coma from Last 3 Months or Most Recently Relevant to Health Maintenance Results * (ABNORMAL) COMP MET PANEL (EXTERNAL RESULT ENTRY) (01/14/2021) Pathologist [facility] Glucose (EXTERNAL) 138(A) 70 - [...] HEPATITIS C RNA QUANTITATIVE (10/27/2020 1:40 PM COPYRIGHT CLERK) Pathologist [facility] Hepatitis C Virus Quant by PCR, Blood 3,531,631 (H) Not detected IU/mL 10/30/2020 11:[address] [facility] Hepatitis C RNA PCR, Interp Detected( A) Not Detected 10/30/2020 11:09 AM [facility] Blood BLOOD SPECIMEN / Unknown Lab Venipuncture / Unknown 10/27/2020 1:40 PM COPYRIGHT CLERK 10/27/2020 3:32 PM [address] [facility] - 10/30/2020 11:09 AM COPYRIGHT CLERK The Hepatitis C viral (HCV) RNA analysis utilized a serum sample, real-time reverse metal furniture glazier PCR, and is reported as Not Detected, [...] the isolation of HCV RNA with reverse metal furniture glazier of genomic HCV RNA followed by real-time PCR in the presence of an unrelated RNA internal control. The internal control ensures that RNA is isolated, and that no general significant inhibitors of the RT-PCR process are present. The analysis was performed using a U.S. FDA approved test methodology (Glimpse Real Time HCV). Yoli Olvera POMOLOGY TEACHER-MANAGER SERVICING LAB - CHEMISTRY JIMBO HDZ Final Result [facility] [address] [place] [address], [facility] [phone] from Last 3 Months or Most Recently Relevant to Health Maintenance Insurance MEDICARE MEDICAID - OUT OF STATE MEDICARE MEDICAID [place] SELF PAY NO INSURANCE Member Subscriber Plan / Payer (Ef fective for All Dates) Name:Sage Macias Member ID:Not on file Relation to Subscriber:Not on file Name:SAGE MACIAS Subscriber ID:Not on file (Home) Address: [place] [address] Payer ID:Not on file Group ID:Not on file Type:Self Pay Address: [place], [place]
--- OUTSIDE RECORDS SUMMARY | 2025-07-22 14:36 | XMS_ITS | Clinical Summary ---
Author Organization [facility] Address [address] [place] [id number] Care Team Providers Care Labor And Delivery Nurse Name Role Phone Dorian Tello MD Primary Care Provider Dorian Tello MD Unavailable [phone] Reuben Lance MD Unavailable [phone] Reuben Lance MD Unavailable [phone] Allergies Active Allergy Reactions Criticality Noted Date Comments Simvastatin Other (See comments) 01/14/2025 Zocor Unclassified Drug Nausea & Vomiting Low 08/06/2022 Unknown antibiotic with UTI, thinks its Cipro or Keflex Medications blood sugar diagnostic (ONETOUCH ULTRA BLUE TEST STRIP [facility] [place] OneTouch Ultra Blue Test Strip TEST BLOOD [...] (07/19/2022): Added automatically from request for surgery [id number] Diabetes mellitus Overview (01/23/2025): reports A1C 6.1 in 06/2022 Assessment & Plan (01/23/2025 11:26 AM CDT): Pt reported HgA1c: 5.5 07/2024 - holding of on home PO agents - SSI - monitor BS Encounters Date Type Department Care Team Description 05/06/2025 9:00 AM CDT Office Visit [facility] Medicine Surgery [address] [place] [address] Andres Bland MD History of lung cancer (Primary Dx) 05/06/2025 7:07 AM CDT - 05/06/2025 11:59 PM CDT Hospital Encounter [facility] [place] [address] [facility] [address] [place] [address] Adenocarcinoma of lower lobe of left lung [...] History Medical History Date Comments Diabetes mellitus reports A1C 6. 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 Gender Identity Not on file Sexual Orientation [...] 08/10/2021, 05/2020 Medical Devices Implanted Type Area Licensed Clinical Psychologist Device Identifier Shelf Expiration Date Model / Serial / Lot Titanium Left: Breast Description:Left breast steffen nium implant [employer] Set Implant Ar[employer]rex Fibertak Biceps Sterile Latex Free Ar-3670 - [id number] Implanted:Qty: 1 on 08/24/2022 by Sony Banks MD at [facility] Right: Shoulder [employer] 03/25/2027 AR-3670 / / [id number] [employer] Swivelock C 4.75mm 19.1mm Closed Eyelet Vent Catharpin Suture Ar-2324bcc - [id number] Implanted:Qty: 1 on 08/24/2022 by Sony Banks MD at [facility] Right: Shoulder [employer] 06/25/2026 [id number] / / [id number] Procedures Procedure Name Priority Date/Time Associated Diagnosis Comments CT CHEST WO CONTRAST Schedule Routine, Read Routine (OP Routine) 05/06/2025 7:27 AM CDT Adenocarcinoma of lower lobe of left lung (HCC) EGFR Routine 01/24/2025 10:20 PM CDT HEMOGLOBIN A1C Routine 07/29/2022 11:41 AM CDT Type 2 diabetes mellitus with other specified complication, unspecified whether jail insulin use (HCC) from Last 3 Months [...] Ashley M.D. Andres De La O MD [facility] [place]EDURES Final Result * (ABNORMAL) eGFR [...] MD LAB BLOOD ORDERAB LES Final Result [facility] Department [place] [address] * Hemoglobin A1c (07/29/2022 11:41 AM CDT) Blood us Sony Banks MD LAB BLOOD ORDERAB LES Final Result EXTERNAL LAB from Last 3 Months or Most Recently Relevant to Health Maintenance Insurance [facility] Member Subscriber Plan / Payer (Ef fective 2025-Present) Name:Jaqueline Macias Relation to Subscriber:Self Name:Jaqueline Macias Payer ID:[id number] (NAIC) Group ID:Not on file Type:MEDICAID RISK OTHER Address: [address] Advance Directives For more information, please contact: [phone] * Full Code (Latest Code Status on File) Date Activated Date Inactivated Comments 01/22/2025 7:19 PM 01/28/2025 6:47 PM Care Teams Labor And Delivery Nurse Relationship Specialty Start Date End Date Dorian Tello MD [address] [facility] [address] [place] [address] PCP - General Internal Medicine 07/13/22 Dorian Tello MD [address] [facility] [address] [place] [address] Internal Medicine 07/13/22 Reuben Lance MD [address] [place] [address] Referring Physician Hematology 01/10/25 Reuben Lance MD [address] [place] [address] Referring Physician Hematology 01/17/25
--- OUTSIDE RECORDS SUMMARY | 2025-07-22 14:36 | XMS_ITS ---
Author Organization [facility] Address [address] [place] [address] Care Team Providers Care Guide Delegate Name Role Phone Dorian Tello MD Primary Care Provider Dorian Tello MD Unavailable [phone] Reuben Lance MD Unavailable [phone] Reuben Lance MD Unavailable [phone] Active Problems Problem Noted Date Diagnosed [...] done - 14 day holter monitor at [place] - monitor on tele Adenocarcinoma of lower [...] (07/19/2022): Added automatically from request for surgery [id number] Diabetes mellitus Overview (01/23/2025): reports A1C 6.1 [...]
--- OUTSIDE RECORDS SUMMARY | 2025-07-22 14:36 | XMS_ITS | Clinical Summary ---
Author Organization [facility] Address [address] [place] [place] [address] Care Team Providers Care Electrical Wirer Name Role Phone Unavailable Primary Care Provider [...] Other (See Comment). 5 Active Active Problems Problem Noted Date Diagnosed Date Malignant neoplasm of lower lobe of left lung Encounters Date Type Department Care Team Description 06/11/2025 External Device Data STL ABSTRACTION Provider, Abstract 06/04/2025 External Device Data STL ABSTRACTION Provider, Abstract 06/04/2025 External Device Data STL ABSTRACTION Provider, Abstract 06/04/2025 External Device Data STL ABSTRACTION Provider, Abstract 06/03/2025 4:00 PM CDT Telephone Check Up [facility] Oncology and Hematology [place] [address] [address] [place] [address] Rimma Cee MD Malignant neoplasm of lower lobe of left lung (CMS/HCC) (Primary Dx) 05/28/2025 Orders Only [facility] Oncology and Hematology - Greg [facility] [address] [place] [phone] Reuben Lance MD 05/16/2025 Orders Only [facility] Oncology and Hematology [place] [address] [address] [place] [address] Reuben Lance MD 05/15/2025 11:45 AM CDT Office Visit [facility] Oncology and Hematology [place] [address] [address] [place] [address] Reuben Lance MD Malignant neoplasm of lower lobe of left lung (CMS/HCC) (Primary Dx) from Last 3 Months Family History Medical [...] Care Team (Late st Contact Info) Description 09/03/2025 11:15 AM SUPERVISOR ALUM PLANT Office Visit [facility] Oncology and Hematology - Greg [address] [facility] [address] [place] [address] Reuben Lance MD [address] [facility] [address] [place] [address] Health Maintenance Due Date Last Done Comments DIABETES ANNUAL FOOT EXAM 1973 DIABETES ANNUAL RETINAL EXAM 1973 DIABETES MICROALBUMIN ANNUAL SCREEN 1973 LDL CHOLESTEROL ANNUAL 1973 DTAP/TDAP/TD VACCINES (1 - Tdap) 1974 BREAST CANCER SCREENING 1995 COLORECTAL SCREENING 02/08/2000 Colorectal Cancer Screening 02/08/2000 FIT-DNA Q 3 years 02/08/2000 FIT/FOBT Q 1 year 02/08/2000 Flex Sig/CT Colonography Q 5 years 02/08/2000 RSV VACCINE (60+ or ) (1 - Risk 50-74 years 1-dose series) 2005 ZOSTER VACCINE (1 of 2) 2005 OSTEOPOROSIS SCREENING 02/08/2020 DIABETES HBA1C Q 6 MONTHS 08/30/2024 02/29/2024, 11/2021 INFLUENZA VACCINE (#1) 2025 9, 06/30/2015, 07/09/2013 PNEUMOCOCCAL VACCINE 50+ YEARS Completed 1 10/10/2020, 08/10/2021, 08/04/2020 Procedures Procedure Name Priority Date/Time Associated Diagnosis Comments PET BONE IMG W CT SKL BSE MID THG Routine 05/23/2025 8:51 AM CDT BASIC METABOLIC PANEL Routine 05/15/2025 11:01 AM CDT COMPREHENSIVE METABOLIC PANEL Routine 05/15/2025 11:00 AM CDT from Last 3 Months Results * PET BONE IMG W CT SKB MD (05/23/2025 8:51 AM CDT) Anatomical Region Laterality Modality Positron Emissio n Tomography (PET) us Reuben Lance MD PE ORDERABLES Final Result * BASIC METABOLIC PANEL (05/15/2025 11:01 AM CDT) Blood us Reuben Lance MD CHEMISTRY ORDERABLES Final Resu lt * COMPREHENSIVE METABOLIC PANEL (05/15/2025 11:00 AM CDT) Blood Reuben Lance MD CHEMISTRY ORDERABLES Final Resu lt from Last 3 Months Insurance [place]
[2025-07-22 14:40] LABS: Add Urine Microscopic? YES; Appearance Urine Cloudy (Clear); Glucose Urine UA Negative (Negative); Leukocyte Esterase Ur 1+ LEU/UL (Negative); Nitrate Urine Positive (Negative); Specific Grav Ur 1.016 (1.001-1.035)
[2025-07-22 14:51] LABS: Alanine Aminotransferase 24 U/L (6-35); Albumin Level 4.5 g/dL (3.5-5.1); Alkaline Phosphatase 66 U/L (38-126); Anion Gap 10 mmol/L (4-12); Aspartate Amino Transferase 25 U/L (14-36); Bilirubin,Total 0.7 mg/dL (0.2-1.3); Blood Urea Nitrogen 12 mg/dL (7-17); Calcium 9.7 mg/dL (8.4-10.2); Carbon Dioxide 27 mmol/L (22-30); Chloride 102 mmol/L (98-107); Estimated CRCL calculation 39 ml/min; Estimated Glomerular Filt Rate 48; Glucose 91 mg/dL (65-110); Potassium 3.5 mmol/L (3.4-5.0); Sodium 139 mmol/L (137-145); Total Protein 7.7 g/dL (6.3-8.2)
[2025-07-22 15:19] LABS: Influenza A QL RT-PCR Negative (Negative); Influenza B QL RT-PCR Negative (Negative); RSV RNA, RT-PCR Negative (Negative); SARS-CoV-2 RNA PCR Negative (Negative)
--- OUTSIDE RECORDS SUMMARY | 2025-07-22 16:48 | XMS_ITS | Clinical Summary ---
[facility] Organization [facility] Address [address] [place] [place] [address] Care Team Providers Care Shotgun Shell Assembly Machine Adjuster Name Role Phone Unavailable Primary Care Provider [...] Up [facility] Oncology and Hematology [place] [address] [address] [place] [address] Rimma Cee MD Malignant neoplasm of lower lobe of left lung (CMS/HCC) (Primary Dx) 05/28/2025 Orders Only [facility] Oncology and Hematology - Greg [facility] [address] [place] [phone] Reuben Lance MD 05/16/2025 Orders Only [facility] Oncology and Hematology [address] [address] [address] [place] [address] Reuben Lance MD 05/15/2025 11:45 AM CDT Office Visit [facility] Oncology and Hematology [address] [place] [address] [address] [place] [address] Reuben Lance MD Malignant neoplasm of lower [...] st Contact Info) Description 09/03/2025 11:15 AM DISTRIBUTION SUPERVISOR Office Visit [facility] Oncology and Hematology - Greg [address] [facility] 200 [place] [address] Reuben Lance MD [address] [facility] [address] [place] [address] Health Maintenance Due Date Last [...]
--- OUTSIDE RECORDS SUMMARY | 2025-07-22 16:48 | XMS_ITS | Clinical Summary ---
Author Organization [facility] Address [address] [place] [address] Care Team Providers Care It Infrastructure Manager Name Role Phone Dorian Tello MD Primary Care Provider Dorian Tello MD Unavailable [phone] Reuben Lance MD Unavailable [phone] Reuben Lance MD Unavailable [phone] Allergies Active Allergy Reactions Criticality Noted Date Comments Simvastatin Other (See comments) 01/14/2025 Zocor Unclassified Drug Nausea & Vomiting Low 08/06/2022 Unknown antibiotic with UTI, thinks its Cipro or Keflex Medications blood sugar diagnostic (ONETOUCH ULTRA BLUE TEST STRIP [facility]) OneTouch Ultra Blue Test Strip TEST BLOOD [...] (07/19/2022): Added automatically from request for surgery [id number] Diabetes mellitus Overview (01/23/2025): reports A1C 6.1 in 06/2022 Assessment & Plan (01/23/2025 11:26 AM CDT): Pt reported HgA1c: 5.5 07/2024 - holding of on home PO agents - SSI - monitor BS Encounters Date Type Department Care Team Description 05/06/2025 9:00 AM CDT Office Visit [facility] Medicine Surgery [address] 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 Gender Identity Not on file Sexual Orientation [...] 08/10/2021, 05/2020 Medical Devices Implanted Type Area Roll Setter Device Identifier Shelf Expiration Date Model / Serial / Lot Titanium Left: Breast Description:Left breast steffen nium implant [employer] Set Implant Arthrex Fibertak Biceps Sterile Latex Free Ar-3670 - [id number] Implanted:Qty: 1 on 08/24/2022 by Sony Banks MD at [facility] Right: Shoulder [employer] 03/25/2027 AR-3670 / / [id number] [employer] Inc Swivelock C 4.75mm 19.1mm Closed Eyelet Vent [place] Suture Ar-2324bcc - [id number] Implanted:Qty: 1 on 08/24/2022 by Sony Banks MD at [facility] Right: Shoulder [employer] 06/25/2026 AR-2324BCC / / [id number] Procedures Procedure Name Priority Date/Time Associated Diagnosis Comments CT CHEST WO CONTRAST Schedule Routine, Read Routine (OP Routine) 05/06/2025 7:27 AM CDT Adenocarcinoma of lower lobe of left lung (HCC) EGFR Routine 01/24/2025 10:20 PM CDT HEMOGLOBIN A1C Routine 07/29/2022 11:41 AM CDT Type 2 diabetes mellitus with other specified complication, unspecified whether half-way insulin use (HCC) from Last 3 Months [...] Ashley M.D. Andres De La O MD [facility] CT PROCEDURES Final Result * (ABNORMAL) eGFR [...] MD LAB BLOOD ORDERAB LES Final Result [facility] Department [place] [address] * Hemoglobin A1c (07/29/2022 11:41 AM CDT) Blood us Sony Banks MD LAB BLOOD ORDERAB LES Final Result EXTERNAL LAB from Last 3 Months or Most Recently Relevant to Health Maintenance Insurance [facility] Member Subscriber Plan / Payer (Ef fective 2025-Present) Name:Jaqueline Macias Relation to Subscriber:Self Name:Jaqueline Macias Payer ID:[id number] (NAIC) Group ID:Not on file Type:MEDICAID RISK OTHER Address: [address] Advance Directives For more information, please contact: [phone] * Full Code (Latest Code Status on File) Date Activated Date Inactivated Comments 01/22/2025 7:19 PM 01/28/2025 6:47 PM Care Teams It Infrastructure Manager Relationship Specialty Start Date End Date Dorian Tello MD [address] [facility] [address] [place] [address] PCP - General Internal Medicine 07/13/22 Dorian Tello MD [address] [facility] [address] [place] [address] Internal Medicine 07/13/22 Reuben Lance MD [address] [place] [address] Referring Physician Hematology 01/10/25 Reuben Lance MD [address] [place] [address] Referring Physician Hematology 01/17/25
--- OUTSIDE RECORDS SUMMARY | 2025-07-22 16:48 | XMS_ITS | Clinical Summary ---
Author Organization [facility] Address [address] [place] [address] Care Team Providers Care Senior Market Research Analyst Name Role Phone Unavailable Primary Care Provider Unavailabl e Source Comments [facility],non-owned Affiliates and Associated Physician Practices is amultiple site organization consisting of ambulatory clinics and hospital sitesin [place], [place], [place] and [place]. This disclosure is being madepursuant to the Care Everywhere program and may not contain all information available regarding this patient. Last updated 18.[facility] Allergies No known active allergies Medications * [...] on file Legal Sex Female 6:22 PM MAINTENANCE MECHANIC MILLWRIGHT Gender Identity Not on file Sexual Orientation [...] C RNA QUANTITATIVE Routine 10/27/2020 1:40 PM MAINTENANCE MECHANIC MILLWRIGHT Chronic hepatitis C without hepatic coma from Last 3 Months or Most Recently Relevant to Health Maintenance Results * (ABNORMAL) COMP MET PANEL (EXTERNAL RESULT ENTRY) (01/14/2021) Pathologist [facility] Glucose (EXTERNAL) 138(A) 70 - 99 mg/dL [...] HEPATITIS C RNA QUANTITATIVE (10/27/2020 1:40 PM MAINTENANCE MECHANIC MILLWRIGHT) Pathologist [facility] Hepatitis C Virus Quant by PCR, Blood 3,531,631 (H) Not detected IU/mL 10/30/2020 11:09 AM MAINTENANCE MECHANIC MILLWRIGHT [facility] MICRO[facility] Hepatitis C RNA PCR, Interp Detected( A) Not Detected 10/30/2020 11:09 AM [facility] MICROBIOLOGY Blood BLOOD SPECIMEN / Unknown Lab Venipuncture / Unknown 10/27/2020 1:40 PM MAINTENANCE MECHANIC MILLWRIGHT 10/27/2020 3:32 PM MAINTENANCE MECHANIC MILLWRIGHT Narrative [facility] MICROBIOLOGY - 10/30/2020 11:09 AM MAINTENANCE MECHANIC MILLWRIGHT The Hepatitis C viral (HCV) RNA analysis utilized a serum sample, real-time reverse county or city auditor PCR, and is reported as Not Detected, [...] the isolation of HCV RNA with reverse county or city auditor of genomic HCV RNA followed by real-time PCR in the presence of an unrelated RNA internal control. The internal control ensures that RNA is isolated, and that no general significant inhibitors of the RT-PCR process are present. The analysis was performed using a U.S. FDA approved test methodology ([facility] Real Time HCV). Yoli Olvera CAREER CONSULTANT-ANESTHESIOLOGIST ASSISTANT CERTIFIED LAB - CHEMISTRY JIMBO HDZ Final Result [facility] MICROBIOLOGY [address] [place] [address], [facility] [phone] from Last 3 Months or Most Recently Relevant to Health Maintenance Insurance MEDICARE MEDICAID - OUT OF STATE MEDICARE [place]ID [place]V [place] SELF PAY NO INSURANCE Member Subscriber Plan / Payer (Ef fective for All Dates) Name:Sage Macias Member ID:Not on file Relation to Subscriber:Not on file Name:SAGE MACIAS Subscriber ID:Not on file (Home) Address: [place] [address] Payer ID:Not on file Group ID:Not on file Type:Self Pay Address: [place], [place]
--- OUTSIDE RECORDS SUMMARY | 2025-07-22 16:48 | XMS_ITS ---
Author Organization [facility] Address [address] [place] [address] Care Team Providers Care Rattling Machine Tender Name Role Phone Dorian Tello MD Primary Care Provider Dorian Tello MD Unavailable [phone] Reuben Lance MD Unavailable [phone] Reuben Lance MD Unavailable [phone] Active Problems Problem Noted Date Diagnosed [...] done - 14 day holter monitor at [place] - monitor on tele Adenocarcinoma of lower [...] (07/19/2022): Added automatically from request for surgery [id number] Diabetes mellitus Overview (01/23/2025): reports A1C 6.1 [...]
--- NOTE | 2025-07-22 17:38 | PC.NURSE ---
Per Dr. Morales, ok to give the pt something to drink.
[2025-07-22 18:00] VITALS: BP 128/70; PULSE 75; RESP 16; TEMP 36.6; O2SAT 97
== END 2025-07-22 18:00 | disposition home or self-care (01) ==
PROVIDERS: Nurse Practitioner Adult Health; Emergency Provider Emergency Medicine; PCP Internal Medicine
DX: B34.9 Viral infection, unspecified (principal); Z20.822 Contact with and (suspected) exposure to COVID-19; I10 Essential (primary) hypertension; E11.9 Type 2 diabetes mellitus without complications; E78.5 Hyperlipidemia, unspecified; F17.200 Nicotine dependence, unspecified, uncomplicated; Z85.118 Personal history of other malignant neoplasm of bronchus and lung; Z90.2 Acquired absence of lung [part of]; Z79.85 Long-term (current) use of injectable non-insulin antidiabetic drugs; Z79.899 Other long term (current) drug therapy
CPT/HCPCS: 36415; 71046; 80053; 81001; 85025; 87077; 87086; 87186; 87637; 99283

== ENCOUNTER 2025-07-24 12:14 | Outpatient (CLI) | payer OTHER, SELFPAY ==
--- NOTE | ~2025-07-24 | CT_ITS ---
EXAMINATION: CT diagnostic chest wo con DATE: 07/24/2025 12:23 INDICATION: Mal livier of lower lobe of lt lung TECHNIQUE: Computed tomography (CT) of the chest was performed without intravenous contrast. Additional 3D reconstructions utilizing coronal maximum intensity projection (MIP) were performed. Automated exposure control and iterative reconstruction technique were employed. The dose-length product was 23 3.20 mGy-cm. COMPARISON: PET/CT dated 05/23/2025 FINDINGS: Mild emphysema. Status post left lower lobectomy. Suture line along the posterior left upper lobe. No significant interval change in the previously new 5 mm pleural-based nodule at the superior segment of the right lower lobe. No significant interval change in several patchy groundglass opacities scattered throughout both lungs. No new or enlarging pulmonary nodules identified. No pneumonia, pulmonary edema or pleural effusion. Heart size is normal. Atherosclerotic coronary artery calcific location. No pericardial effusion. Thoracic aorta is normal in caliber. No pathologically enlarged thoracic lym phadenopathy. Small sliding-type hiatal hernia. Visualized upper abdomen is unremarkable. Severe lower cervical and mild to moderate thoracic spondylosis. IMPRESSION: 1. Mild emphysema status post left lower lobectomy. 2. Stable appearance of a previously new 5 mm pleural-based nodule in the right lower lobe and several more ill-defined chronic patchy groundglass opacities scattered throughout both lungs with upper lobe predominance. 3. Small sliding-type hiatal hernia. Reviewed, dictated and finalized at location A. IMPRESSION: 1. Mild emphysema status post left lower lobectomy. 2. Stable appearance of a previously new 5 mm pleural-based nodule in the right lower lobe and several more ill-defined chronic patchy groundglass opacities s cattered throughout both lungs with upper lobe predominance. 3. Small sliding-type hiatal hernia.
--- OUTSIDE RECORDS SUMMARY | 2025-07-24 13:34 | XMS_ITS | Clinical Summary ---
Author Organization [facility] Address [address] [place] [address] Care Team Providers Care Fabric Coating Supervisor Name Role Phone Dorian Tello MD Primary Care Provider Dorian Tello MD Unavailable [phone] Reuben Lance MD Unavailable [phone] Reuben Lance MD Unavailable [phone] Allergies Active Allergy Reactions Criticality Noted Date Comments Simvastatin Other (See comments) 01/14/2025 Zocor Unclassified Drug Nausea & Vomiting Low 08/06/2022 Unknown antibiotic with UTI, thinks its Cipro or Keflex Medications blood sugar diagnostic (ONETOUCH ULTRA BLUE TEST STRIP [facility]) OneTouch Ultra Blue Test Strip TEST BLOOD [...] (07/19/2022): Added automatically from request for surgery [id number] Diabetes mellitus Overview (01/23/2025): reports A1C 6.1 in 06/2022 Assessment & Plan (01/23/2025 11:26 AM CDT): Pt reported HgA1c: 5.5 07/2024 - holding of on home PO agents - SSI - monitor BS Encounters Date Type Department Care Team Description 05/06/2025 9:00 AM CDT Office Visit [facility] Medicine Surgery [address] [facility] Floor 5 [place] [address] Andres Bland MD History of lung cancer (Primary Dx) 05/06/2025 7:07 AM CDT - 05/06/2025 11:59 PM CDT Hospital Encounter [facility] [place] [address] [facility] Floor [address] [place] [address] Adenocarcinoma of lower lobe of left lung [...] on file Legal Sex Female 1:06 AM SHIRT MARKER Gender Identity Not on file Sexual Orientation [...] 08/10/2021, 05/2020 Medical Devices Implanted Type Area Material Mover Device Identifier Shelf Expiration Date Model / Serial / Lot Titanium Left: Breast Description:Left breast steffen nium implant [employer] Set Implant Arthrex Fibertak Biceps Sterile Latex Free Ar-3670 - [id number] Implanted:Qty: 1 on 08/24/2022 by Sony Banks MD at [facility] Right: Shoulder [employer] 03/25/2027 AR-3670 / / [id number] [employer] Swivelock C 4.75mm 19.1mm Closed Eyelet Vent [place] Suture Ar-2324bcc - [id number] Implanted:Qty: 1 on 08/24/2022 by Sony Banks MD at [facility] Right: Shoulder [employer] 06/25/2026 AR-2324BCC / / [id number] Procedures Procedure Name Priority Date/Time Associated Diagnosis Comments CT CHEST WO CONTRAST Schedule Routine, Read Routine (OP Routine) 05/06/2025 7:27 AM CDT Adenocarcinoma of lower lobe of left lung (HCC) EGFR Routine 01/24/2025 10:20 PM CDT HEMOGLOBIN A1C Routine 07/29/2022 11:41 AM CDT Type 2 diabetes mellitus with other specified complication, unspecified whether assisted insulin use (HCC) from Last 3 Months [...] Ashley M.D. Andres De La O MD [facility] CT PROCEDURES Final Result * (ABNORMAL) eGFR [...] MD LAB BLOOD ORDERAB LES Final Result [facility] Department [place] [address] * Hemoglobin A1c (07/29/2022 11:41 AM CDT) Blood us Sony Banks MD LAB BLOOD ORDERAB LES Final Result EXTERNAL LAB from Last 3 Months or Most Recently Relevant to Health Maintenance Insurance [facility] Member Subscriber Plan / Payer (Ef fective 2025-Present) Name:Jaqueline Macias Relation to Subscriber:Self Name:Jaqueline Macias Payer ID:[id number] (NAIC) Group ID:Not on file Type:MEDICAID RISK OTHER Address: [address] Advance Directives For more information, please contact: [phone] * Full Code (Latest Code Status on File) Date Activated Date Inactivated Comments 01/22/2025 7:19 PM 01/28/2025 6:47 PM Care Teams Fabric Coating Supervisor Relationship Specialty Start Date End Date Dorian Tello MD [address] [facility] [address] [place] [address] PCP - General Internal Medicine 07/13/22 Dorian Tello MD [address] [facility] [address] [place] [address] Internal Medicine 07/13/22 Reuben Lance MD [address] [place] [address] Referring Physician Hematology 01/10/25 Reuben Lance MD [address] [place] [address] Referring Physician Hematology 01/17/25
--- OUTSIDE RECORDS SUMMARY | 2025-07-24 13:34 | XMS_ITS ---
Author Organization [facility] Address [address] [place] [address] Care Team Providers Care Dental Insurance Coordinator Name Role Phone Dorian Tello MD Primary Care Provider Dorian Tello MD Unavailable [phone] Reuben Lance MD Unavailable [phone] Reuben Lance MD Unavailable [phone] Active Problems Problem Noted Date Diagnosed [...] done - 14 day holter monitor at [place] - monitor on tele Adenocarcinoma of lower [...] (07/19/2022): Added automatically from request for surgery [id number] Diabetes mellitus Overview (01/23/2025): reports A1C 6.1 [...]
--- OUTSIDE RECORDS SUMMARY | 2025-07-24 13:34 | XMS_ITS | Clinical Summary ---
Author Organization [facility] Address [address] [place] [address] Care Team Providers Care Auto Body Mechanic Name Role Phone Unavailable Primary Care Provider Unavailabl e Source Comments [facility],non-owned Affiliates and Associated Physician Practices is amultiple site organization consisting of ambulatory clinics and hospital sitesin [place], [place], [place] and [place]. This disclosure is being madepursuant to the Care Everywhere program and may not contain all information available regarding this patient. Last updated 18.[facility] Allergies No known active allergies Medications * [...] on file Legal Sex Female 6:22 PM WELT SEWER Gender Identity Not on file Sexual Orientation [...] C RNA QUANTITATIVE Routine 10/27/2020 1:40 PM WELT SEWER Chronic hepatitis C without hepatic coma from [...] HEPATITIS C RNA QUANTITATIVE (10/27/2020 1:40 PM WELT SEWER) Pathologist [facility] Hepatitis C Virus Quant by PCR, Blood 3,531,631 (H) Not detected IU/mL 10/30/2020 11:09 AM WELT SEWER [facility] MICRO[facility]OLOG[facility] Hepatitis C RNA PCR, Interp Detected( A) Not Detected 10/30/2020 11:09 AM [facility] Blood BLOOD SPECIMEN / Unknown Lab Venipuncture / Unknown 10/27/2020 1:40 PM WELT SEWER 10/27/2020 3:32 PM WELT SEWER Narrative [facility] MICROBIOLOGY - 10/30/2020 11:09 AM WELT SEWER The Hepatitis C viral (HCV) RNA analysis utilized a serum sample, real-time reverse director loss prevention PCR, and is reported as Not Detected, [...] the isolation of HCV RNA with reverse director loss prevention of genomic HCV RNA followed by real-time PCR in the presence of an unrelated RNA internal control. The internal control ensures that RNA is isolated, and that no general significant inhibitors of the RT-PCR process are present. The analysis was performed using a U.S. FDA approved test methodology ([employer] Real Time HCV). Yoli Olvera DEVELOPMENT SPECIALIST-SENIOR OCCUPATIONAL THERAPIST LAB - CHEMISTRY JIMBO HDZ Final Result [facility] MICROBIOLOG[facility] [address] [place] [address], [facility] [phone] from Last 3 Months or Most Recently Relevant to Health Maintenance Insurance MEDICARE MEDICAID - OUT OF STATE MEDICARE MED[place] MED[place]V [place] SELF PAY NO INSURANCE Member Subscriber Plan / Payer (Ef fective for All Dates) Name:Sage Macias Member ID:Not on file Relation to Subscriber:Not on file Name:SAGE MACIAS Subscriber ID:Not on file (Home) Address: [place] [address] Payer ID:Not on file Group ID:Not on file Type:Self Pay Address: [place], [place]
--- OUTSIDE RECORDS SUMMARY | 2025-07-24 13:34 | XMS_ITS | Clinical Summary ---
Author Organization [facility] Address [address] [place] [place] [address] Care Team Providers Care Rubber Off Name Role Phone Unavailable Primary Care Provider [...] 06/03/2025 4:00 PM CDT Telephone Check Up [facility] Oncology and Hematology [place] [address] [address] [place] [address] Rimma Cee MD Malignant neoplasm of lower lobe of left lung (CMS/HCC) (Primary Dx) 05/28/2025 Orders Only [facility] Oncology and Hematology - Greg [facility] [address] [place] [phone] Reuben Lance MD 05/16/2025 Orders Only [facility] Oncology and Hematology [place] [address] [address] [place] [address] Reuben Lance MD 05/15/2025 11:45 AM CDT Office Visit [facility] Oncology and Hematology [place] [address] [address] [place] [address] Reuben Lance MD Malignant neoplasm of lower [...] st Contact Info) Description 09/03/2025 11:15 AM YELLOW PAGES SPACE SALESPERSON Office Visit [facility] Oncology and Hematology - Greg [address] [facility] [address] [place] [address] Reuben Lance MD [address] [facility] [address] [place] [address] Health Maintenance Due Date Last [...]
== END 2025-07-24 12:15 | disposition home or self-care (01) ==
PROVIDERS: PCP Internal Medicine; Visit Provider Internal Medicine Hematology & Oncology
DX: C34.32 Malignant neoplasm of lower lobe, left bronchus or lung (principal)
CPT/HCPCS: 71250

== ENCOUNTER 2025-09-03 10:44 | Outpatient (CLI) | payer OTHER, SELFPAY ==
[2025-09-03 11:06] LABS: Hematocrit 41.6 % (37.0-47.0); Hemoglobin 13.5 g/dL (12.0-15.0); Immature Granulocyte Percent A 0.3 % (0-0.5); Lymphocytes Absolute Auto 3.02 K/mm3 (0.9-3.2); Mean Corpuscular HGB Conc 32.5 g/dl (32-36); Mean Corpuscular Hemoglobin 30.6 pg (26-34); Mean Corpuscular Volume 94.3 fl (80-100); Nucleated Red Blood Cells Absolute Auto 0.000 K/mm3 (0.0-0.012); Nucleated Red Blood Cells Perc 0.0 % (0.0-0.2); Platelet Count Result 326 k/mm3 (150-375); Red Blood Count 4.41 M/mm3 (4.2-5.4); White Blood Count 9.4 K/mm3 (4.5-10.0)
[2025-09-03 11:09] LABS: Blood Urea Nitrogen 19 mg/dL (8-26); Carbon Dioxide 27 mmol/L (22-30); Chloride 102 mmol/L (98-109); Estimated Glomerular Filt Rate 44; Glucose 105 mg/dL (70-105); Ionized Calcium (POC) 1.29 mmol/L (1.11-1.31); Potassium 4.4 mmol/L (3.5-4.9); Sodium 140 mmol/L (138-146)
== END 2025-09-03 10:45 | disposition home or self-care (01) ==
LOC: ANHLAB 10:45
PROVIDERS: PCP Internal Medicine; Visit Provider Internal Medicine Hematology & Oncology
DX: C34.32 Malignant neoplasm of lower lobe, left bronchus or lung (principal)
CPT/HCPCS: 36415; 80047; 85025